=== PATIENT | female | born 1940 | race Caucasian/White ===

== ENCOUNTER 2021-03-03 23:11 | Inpatient (IN) ==
[2021-03-04 00:17] LABS: Hematocrit (blood only) 44.5 % (37-47); Hemoglobin 14.6 g/dL (12.0-16.0); Mean Corpuscular Hgb Conc 32.8 g/dL (32-36); Mean Corpuscular Volume 91.6 fL (80-100); Mean Platelet Volume 10.7 fL (7.4-10.4); Nucleated RBC # (auto) 0.21 K/uL (0-0); Nucleated RBC % (auto) 1.3 %; Platelet Count 219 K/uL (130-400); RDW Coefficient of Variation 18.1 % (11.5-14.5); Red Blood Count 4.86 M/uL (4.2-5.4); White Blood Count 16.73 K/uL (4.8-10.8)
[2021-03-04 00:28] LABS: INR 1.4 (0.9-1.1); Prothrombin Time 14.2 Seconds (9.0-12.0)
[2021-03-04 00:37] LABS: Albumin Level 3.1 gm/dl (3.4-5.0); BUN Creatinine Ratio 22.9 (10-20); Bilirubin Direct 0.5 mg/dl (0-0.2); Calcium 8.5 mg/dl (8.5-10.1); Creatinine Clr Calc Pharmacy 11.9 ml/min; Est GFR (African American) 14.3; Est GFR (Non-African American) 12.3; Magnesium 2.7 mg/dl (1.8-2.4); Potassium 4.4 mmol/L (3.5-5.1)
[2021-03-04 00:46] LABS: Albumin Globulin Ratio 0.8 (0.9-2); Basophils # (auto) 0.01 K/uL (0-0.2); Basophils % (auto) 0.1 %; Bilirubin,Total 1.3 mg/dl (0.2-1); Echinocytes 1+; Eosinophils # (auto) 0.06 K/uL (0-0.5); Eosinophils % (auto) 0.4 %; Immature Granulocytes # (auto) 0.08 K/uL (0.00-0.02); Immature Granulocytes % (auto) 0.5 %; Lymphocytes # (auto) 1.29 K/uL (1.2-3.4); Lymphocytes % (auto) 7.7 %; Monocytes # (auto) 0.89 K/uL (0.11-0.59); Monocytes % (auto) 5.3 %; Phosphorus 5.8 mg/dl (2.5-4.9); Thyroid Stimulating Hormone 9.22 uIu/ml (0.300-4.500); Total Protein 7.1 gm/dl (6.4-8.2); Troponin I 0.017 ng/ml (0-0.045)
[2021-03-04 00:58] LABS: T4 Free Thyroxine 1.77 ng/dl (0.8-1.6)
--- NOTE | 2021-03-04 02:28 | Emergency Department Note ---
Impression & Plan Pneumonia, Acute UTI, Acute on chronic renal insufficiency, Generalized weakness, Atrial fibrillation, Chronic systolic heart failure, Bilateral edema of lower extremity ED Provider Note NAME: DALI BOYLE AGE: 80 SEX: F ARRIVES VIA: Walk-In INFORMANT: Patient, ED PROVIDER(S): Keenan Rodriguez MD CHIEF COMPLAINT: Weakness / edema PLAN: Disposition: Admit MEDICAL DECISION MAKING: The patient is a pleasant 80-year-old woman with a past medical history of CKD, hypertension, hyperlipidemia, atrial fibrillation on amiodarone, CHF who presents to the emergency department coming by her son with concern for worsening generalized weakness and lower extremity swelling that has been ongoing for the past couple weeks setting of recently being admitted to [facility] for UTI and upon discharge was reported to have generalized weakness knee walker and significant assistance to ambulate but this is persisted and so they present to the emergency department tonight. The patient reports a mild cough but nothing significant. She denies any nausea, vomiting, diarrhea. She reports she was recently seen on Wednesday by her kidney doctor and was counseled on using Lasix to help remove fluid but she also was told that her kidney func tion was worse. On arrival the patient is chronically ill-appearing but no acute distress, afebrile with stable vital signs. She has 2+ bilateral lower extremity pitting edema. Calves are nontender and symmetric. She exhibits generalized weakness throughout without focal deficits. EKG with afib and LBBB, no sgarbossa criteria. No recent EKG for comparison. Chest x-ray with question of patchy infiltrates of bilateral lower lung field suspicious for pneumonia in the setting of the patient's leukocytosis. WBC 16.7K, without recent values for comparison. H/H and platelets within normal limits. Chemistry without metabolic acidosis. Creatinine 3.3 which is up from 2.9 on outpatient blood work in the [employer] system. LFTs with mild elevations without prior values for comparison. Total bilirubin 1.3 and direct bilirubin 0.5, however, no abdominal pain. AST, ALT and alk phos are 77, 134 and 300 respectively. CPK within normal limits. Troponin 0.017, within normal limits. BNP 9600 without prior values for comparison and in the setting of the patient's CKD. Lipase is not elevated. TSH elevated at 9.2 with free T4 slightly elevated from normal range at 1.7. COVID-19 PCR negative. Influenza and RSV PCR also negative. CT of the head per preliminary stat read report negative for acute process. Bilateral lower extremity ultrasound pending. UA pending. Given the patient's generalized weakness with acute on chronic renal failure and suspicion for pneumonia reasonable to admit the patient for further management. The patient and her son at the bedside were also in agreement. Will defer diuresis to admitting team. Case was discussed with Dr. Perdomo, [facility] hospitalist, who will evaluate the patient for admission. Triage Nursing notes reviewed and agree them. Additional history obtained from [facility] records. Prior medical records reviewed Vital Signs: reviewed and remarkable for no significant abnormalities Differential diagnosis: Infection, dehydration, metabolic abnormality, hypo/hyperglycemia, electrolyte disturbance, anemia, hypoxia, cardiac sources, intracerebral event, toxicologic, neurologic, as well as other pathologies. ER treatment provided: See below. Diagnostics interpreted by me: ECG: Atrial fibrillation, 103 bpm, no ectopy, LBBB, no sgarbossa criteria. LBBB new from 2015 without more recent for comparison. Cardiac Monitoring: An order for continuous cardiac monitoring was placed and demonstrated Atrial fibrillation, 103 bpm, no ectopy. Laboratory studies: See below Imaging studies: CXR: Patchy bilateral lower lung field infiltrates per my preliminary review. [facility] Preliminary Findings Only See Final Report For Complete Findings CT HEAD: No ICH, mass effect or edema. No evidence of acute cortical stroke. Periventricular small vessel ischemic change. Debris in the right maxillary sinus Radiologist: Marcella Han M.D. Study ready at 01:19 and initial results transmitted at 01:21 --- Preliminary Findings Only See Final Report For Complete Findings US VENOUS BILATERAL LOWER EXTREMITIES: No evidence of deep venous thrombosis. Subcutaneous edema at bilateral calfs and popliteal fossae. Radiologist: Kishore Clay MD Study ready at 04:08 and initial results transmitted at 04:42 Consultation(s): Case was discussed with Dr. Perdomo, [facility] Hospitalist, who will evaluate the patient for admission. HPI: The patient is a pleasant 80-year-old woman with a past medical history of CKD, hypertension, hyperlipidemia, atrial fibrillation on amiodarone, CHF who presents to the emergency department coming by her son with concern for worsening generalized weakness and lower extremity swelling that has been ongoing for the past couple weeks setting of recently being admitted to [facility] for UTI and upon discharge was reported to have generalized weakness knee walker and significant assistance to ambulate but this is persisted and so they present to the emergency department tonight. The patient reports a mild cough but nothing significant. She denies any nausea, vomiting, diarrhea. She reports she was recently seen on Wednesday by her kidney doctor and was counseled on using Lasix to help remove fluid but she also was told that her kidney funct ion was worse. ROS: See above HPI for pertinent positives & negatives. A total of 10 systems reviewed and were otherwise negative. PAST MEDICAL HISTORY:See Below PAST SURGICAL HISTORY:See Below FAMILY HISTORY:See Below SOCIAL HISTORY:See Below HOME MEDICATIONS:See Below ALLERGIES:See Below VITALS:See Below PHYSICAL EXAMINATION: GENERAL: Awake, alert, fatigued-appearing, in no distress HENT: Normocephalic, atraumatic. Oropharynx unremarkable. EYES: Normal conjunctiva. Sclera non-icteric. NECK: Supple. No nuchal rigidity. FROM. No JVD. RESPIRATORY: Diminished at bases and otherwise clear to auscultation. CARDIAC: Tachycardic rate, irregular rhythm. Extremities warm and well perfused. Pulses equal. ABDOMEN: Soft, non-distended. No tenderness to palpation. No rebound or guarding. No masses. RECTAL: Deferred. MUSCULOSKELETAL: Chest examination reveals no tenderness. The back is symmetrical on inspection without obvious abnormality. There is no CVA ten derness to palpation. No joint edema. LOWER EXTREMITIES: Calves are equal size bilaterally and non-tender. 2+ BLE pitting edema. No discoloration. NEURO: Normal sensorium. No sensory or motor deficits noted. SKIN: No rash or jaundice noted. Keenan Rodriguez MD Past Med/Surg History Medical History Atrial fibrillation s/p Watchman 01/2020 s/p cardioversion spring 2019, May 2020 Carotid stenosis, bilateral Chronic systolic heart failure EF 20-30% dx'd January 2020 CKD (chronic kidney disease) Stage 3B as of 05/2020 Colon cancer s/p surgery, XRT, CTX 2009 Hyperlipidemia Hypertension Staghorn calculus Surgical History Femur fracture, left s/p 2019 ORIF History of colectomy 2009 for colon CA R chad Presence of Watchman left atrial append[facility] Family [facility] Sister Cancer Social History Smoking Status: Never smoker Hx Alcohol Use: No Hx Substance Use: No Preferred Language: Lao Communication Ability: Effective Beliefs That Will Affect Care: None Current Living Situation: Family Feels Safe at Home: Yes Assistive Devices: None Allergies Allergies Allergy/AdvReac Type Severity Reaction Status Date / Time strawberry Allergy Unknown hives Unverified 03/04/21 00:06 Home Meds Home Medications Medication Instructions Recorded Confirmed amiodarone 200 mg PO BID 03/03/21 03/04/21 cholecalciferol (vitamin D3) 25 mcg PO DAILY 03/03/21 03/03/21 [Vitamin D3] furosemide 40 mg PO UD 03/03/21 03/04/21 levetiracetam 500 mg PO BID 03/03/21 03/04/21 levothyroxine 75 mcg PO QAM 03/03/21 03/04/21 metoprolol succinate 50 mg PO BID 03/03/21 03/04/21 multivitamin 1 tab PO DAILY 03/03/21 03/04/21 simvastatin 10 mg PO DAILY 03/03/21 03/04/21 aspirin [Aspirin Low Dose] 81 mg PO QAM 03/04/21 03/04/21 Results & Data (ED) Vital Signs Vital Signs - 24 hr 03/03/21 23:18 03/03/21 23:35 03/03/21 23:41 Temperature 36.5 C Temperature Source Temporal Artery Scan Pulse Rate 89 103 H Pulse Rate [Bilateral Radial] 95 H Pulse Rate from SpO2 Sensor 88 Pulse Rhythm Pulse Rhythm [Bilateral Radial] Irregular Pulse Strength [Bilateral Radial] Normal Respiratory Rate 20 20 28 H Respiratory Effort / Characteristics Non-Labored Respiratory Depth Normal Respiratory Pattern Regular Blood Pressure 114/70 126/62 Blood Pressure [Right Arm] 126/62 Blood Pressure Mean 84 83 Blood Pressure Mean [Right Arm] 83 Blood Pressure Position [Right Arm] Sitting Pulse Oximetry 94 93 91 Oxygen Delivery Method Room Air Room Air Sepsis Recent Fever Within 48 Hours No Sepsis New/Unexplained Change in Mental Status N/A Sepsis Action Taken by Nursing No Action Required 03/03/21 23:56 03/03/21 23:57 03/04/21 01:03 Temperature Temperature Source Pulse Rate 102 H 90 102 H Pulse Rate [Bilateral Radial] Pulse Rate from SpO2 Sensor 93 H 100 H Pulse Rhythm Irregular Pulse Rhythm [Bilateral Radial] Pulse Strength [Bilateral Radial] Respiratory Rate 31 H 18 13 Respiratory Effort / Characteristics Respiratory Depth Respiratory Pattern Blood Pressure 117/92 108/80 Blood Pressure [Right Arm] Blood Pressure Mean 100 89 Blood Pressure Mean [Right Arm] Blood Pressure Position [Right Arm] Pulse Oximetry 92 93 95 Oxygen Delivery Method Room Air Room Air Sepsis Recent Fever Within 48 Hours Sepsis New/Unexplained Change in Mental Status Sepsis Action Taken by Nursing 03/04/21 01:30 03/04/21 01:52 03/04/21 02:00 Temperature Temperature Source Pulse Rate 92 H 89 Pulse Rate [Bilateral Radial] 92 H Pulse Rate from SpO2 Sensor 93 H 94 H Pulse Rhythm Pulse Rhythm [Bilateral Radial] Regular Pulse Strength [Bilateral Radial] Normal Respiratory Rate 27 H 20 24 Respiratory Effort / Characteristics Non-Labored Respiratory Depth Normal Respiratory Pattern Blood Pressure Blood Pressure [Right Arm] 108/80 Blood Pressure Mean Blood Pressure Mean [Right Arm] 89 Blood Pressure Position [Right Arm] Sitting Pulse Oximetry 94 93 92 Oxygen Delivery Method Room Air Room Air Room Air Sepsis Recent Fever Within 48 Hours Sepsis New/Unexplained Change in Mental Status Sepsis Action Taken by Nursing 03/04/21 02:30 03/04/21 03:00 03/04/21 04:06 Temperature Temperature Source Pulse Rate 96 H 94 H 91 H Pulse Rate [Bilateral Radial] Pulse Rate from SpO2 Sensor 96 H 93 H 86 Pulse Rhythm Pulse Rhythm [Bilateral Radial] Pulse Strength [Bilateral Radial] Respiratory Rate 26 H 26 H 26 H Respiratory Effort / Characteristics Respiratory Depth Respiratory Pattern Blood Pressure 112/68 Blood Pressure [Right Arm] Blood Pressure Mean 82 Blood Pressure Mean [Right Arm] Blood Pressure Position [Right Arm] Pulse Oximetry 94 92 92 Oxygen Delivery Method Room Air Room Air Room Air Sepsis Recent Fever Within 48 Hours Sepsis New/Unexplained Change in Mental Status Sepsis Action Taken by Nursing Laboratory Data Attestation: I reviewed the patient's lab results. Result diagrams: 03/04/21 00:00 03/04/21 00:00 Lab Results 03/04/21 03/04/2121 Range/Units 00:00 00:00 00:00 WBC 16.73 H (4.8-10.8) K/uL RBC 4.86 (4.2-5.4) M/uL Hgb 14.6 (12.0-16.0) g/dL Hct 44.5 (37-47) % MCV 91.6 (80-100) fL MCH 30.0 (25-34) pg MCHC 32.8 (32-36) g/dL RDW Std Deviation 58.0 H (36.4-46.3) fL RDW Coeff of Lawrence 18.1 H (11.5-14.5) % Plt Count 219 (130-400) K/uL MPV 10.7 H (7.4-10.4) fL Immature Gran % (Auto) 0.5 % Neut % (Auto) 86.0 % Lymph % (Auto) 7.7 % Pitkin % (Auto) 5.3 % Eos % (Auto) 0.4 % Baso % (Auto) 0.1 % Neut # (Auto) 14.40 H (1.4-6.5) K/uL Lymph # (Auto) 1.29 (1.2-3.4) K/uL Pitkin # (Auto) 0.89 H (0.11-0.59) K/uL Eos # (Auto) 0.06 (0-0.5) K/uL Baso # (Auto) 0.01 (0-0.2) K/uL Immature Gran # (Auto) 0.08 H (0.00-0.02) K/uL Absolute Nucleated RBC 0.21 H (0-0) K/uL Nucleated RBC % (auto) 1.3 % Echinocytes 1+ PT 14.2 H (9.0-12.0) Seconds INR 1.4 H (0.9-1.1) Sodium 137 (136-145) mmol/L Potassium 4.4 (3.5-5.1) mmol/L Chloride 103 (98-107) mmol/L Carbon Dioxide 23 (21-32) mmol/L Anion Gap 11.0 (3-11) BUN 76 H (7-18) mg/dl Creatinine 3.31 H (0.6-1.2) mg/dl Est Cr Clr Drug Dosing 11.9 ml/min Est GFR ( Amer) 14.3 Est GFR (Non-Af Amer) 12.3 BUN/Creatinine Ratio 22.9 H (10-20) Glucose 124 H (70-99) mg/dl Lactate (0.4-2.0) mmol/L Calcium 8.5 (8.5-10.1) mg/dl Phosphorus 5.8 H (2.5-4.9) mg/dl Magnesium 2.7 H (1.8-2.4) mg/dl Total Bilirubin 1.3 H (0.2-1) mg/dl Direct Bilirubin 0.5 H (0-0.2) mg/dl AST 77 H (15-37) U/L ALT 134 H (12-78) U/L Alkaline Phosphatase 300 H (45-117) U/L Total Creatine Kinase 55 (26-192) U/L Troponin I 0.017 (0-0.045) ng/ml NT-Pro-B Natriuret Pep 9623 H (0-1800) pg/ml Total Protein 7.1 (6.4-8.2) gm/dl Albumin 3.1 L (3.4-5.0) gm/dl Globulin 4.0 (2.5-4.0) gm/dl Albumin/Globulin Ratio 0.8 L (0.9-2) Lipase 284 (73-393) U/L Procalcitonin (0-0.5) ng/ml TSH 9.220 H (0.300-4.500) uIu/ml Free T4 1.77 H (0.8-1.6) ng/dl COVID-19 Eval Order SARS-CoV-2 (PCR) (Negative) Influenza Type A (PCR) (Neg) Influenza Type B (PCR) (Neg) RSV (RT-PCR) (Neg) 03/04/21 03/04/21 03/04/21 Range/Units 00:00 02:02 02:02 WBC (4.8-10.8) K/uL RBC (4.2-5.4) M/uL Hgb (12.0-16.0) g/dL Hct (37-47) % MCV (80-100) fL MCH (25-34) pg MCHC (32-36) g/dL RDW Std Deviation (36.4-46.3) fL RDW Coeff of Lawrence (11.5-14.5) % Plt Count (130-400) K/uL MPV (7.4-10.4) fL Immature Gran % (Auto) % Neut % (Auto) % Lymph % (Auto) % Pitkin % (Auto) % Eos % (Auto) % Baso % (Auto) % Neut # (Auto) (1.4-6.5) K/uL Lymph # (Auto) (1.2-3.4) K/uL Pitkin # (Auto) (0.11-0.59) K/uL Eos # (Auto) (0-0.5) K/uL Baso # (Auto) (0-0.2) K/uL Immature Gran # (Auto) (0.00-0.02) K/uL Absolute Nucleated RBC (0-0) K/uL Nucleated RBC % (auto) % Echinocytes PT (9.0-12.0) Seconds INR (0.9-1.1) Sodium (136-145) mmol/L Potassium (3.5-5.1) mmol/L Chloride (98-107) mmol/L Carbon Dioxide (21-32) mmol/L Anion Gap (3-11) BUN (7-18) mg/dl Creatinine (0.6-1.2) mg/dl Est Cr Clr Drug Dosing ml/min Est GFR ( Amer) Est GFR (Non-Af Amer) BUN/Creatinine Ratio (10-20) Glucose (70-99) mg/dl Lactate (0.4-2.0) mmol/L Calcium (8.5-10.1) mg/dl Phosphorus (2.5-4.9) mg/dl Magnesium (1.8-2.4) mg/dl Total Bilirubin (0.2-1) mg/dl Direct Bilirubin (0-0.2) mg/dl AST (15-37) U/L ALT (12-78) U/L Alkaline Phosphatase (45-117) U/L Total Creatine Kinase (26-192) U/L Troponin I (0-0.045) ng/ml NT-Pro-B Natriuret Pep (0-1800) pg/ml Total Protein (6.4-8.2) gm/dl Albumin (3.4-5.0) gm/dl Globulin (2.5-4.0) gm/dl Albumin/Globulin Ratio (0.9-2) Lipase (73-393) U/L Procalcitonin 0.32 (0-0.5) ng/ml TSH (0.300-4.500) uIu/ml Free T4 (0.8-1.6) ng/dl COVID-19 Eval Order CovFluRsv at [facility] SARS-CoV-2 (PCR) NEGATIVE (Negative) Influenza Type A (PCR) Negative (Neg) Influenza Type B (PCR) Negative (Neg) RSV (RT-PCR) Negative (Neg) 03/04/21 Range/Units 04:13 WBC (4.8-10.8) K/uL RBC (4.2-5.4) M/uL Hgb (12.0-16.0) g/dL Hct (37-47) % MCV (80-100) fL MCH (25-34) pg MCHC (32-36) g/dL RDW Std Deviation (36.4-46.3) fL RDW Coeff of Lawrence (11.5-14.5) % Plt Count (130-400) K/uL MPV (7.4-10.4) fL Immature Gran % (Auto) % Neut % (Auto) % Lymph % (Auto) % Pitkin % (Auto) % Eos % (Auto) % Baso % (Auto) % Neut # (Auto) (1.4-6.5) K/uL Lymph # (Auto) (1.2-3.4) K/uL Pitkin # (Auto) (0.11-0.59) K/uL Eos # (Auto) (0-0.5) K/uL Baso # (Auto) (0-0.2) K/uL Immature Gran # (Auto) (0.00-0.02) K/uL Absolute Nucleated RBC (0-0) K/uL Nucleated RBC % (auto) % Echinocytes PT (9.0-12.0) Seconds INR (0.9-1.1) Sodium (136-145) mmol/L Potassium (3.5-5.1) mmol/L Chloride (98-107) mmol/L Carbon Dioxide (21-32) mmol/L Anion Gap (3-11) BUN (7-18) mg/dl Creatinine (0.6-1.2) mg/dl Est Cr Clr Drug Dosing ml/min Est GFR ( Amer) Est GFR (Non-Af Amer) BUN/Creatinine Ratio (10-20) Glucose (70-99) mg/dl Lactate 1.8 (0.4-2.0) mmol/L Calcium (8.5-10.1) mg/dl Phosphorus (2.5-4.9) mg/dl Magnesium (1.8-2.4) mg/dl Total Bilirubin (0.2-1) mg/dl Direct Bilirubin (0-0.2) mg/dl AST (15-37) U/L ALT (12-78) U/L Alkaline Phosphatase (45-117) U/L Total Creatine Kinase (26-192) U/L Troponin I (0-0.045) ng/ml NT-Pro-B Natriuret Pep (0-1800) pg/ml Total Protein (6.4-8.2) gm/dl Albumin (3.4-5.0) gm/dl Globulin (2.5-4.0) gm/dl Albumin/Globulin Ratio (0.9-2) Lipase (73-393) U/L Procalcitonin (0-0.5) ng/ml TSH (0.300-4.500) uIu/ml Free T4 (0.8-1.6) ng/dl COVID-19 Eval Order SARS-CoV-2 (PCR) (Negative) Influenza Type A (PCR) (Neg) Influenza Type B (PCR) (Neg) RSV (RT-PCR) (Neg) Administered Medications Amiodarone HCl (Amiodarone 200 Mg Tab) 200 mg PO BID [facility] Stop: 04/03/21 08:59 Last Admin: 03/04/21 09:45 Dose: 200 mg Documented by: [id number] Aspirin (Aspirin 81 Mg Ectab) 81 mg PO QAM NICHOLAS Stop: 04/03/21 08:59 Last Admin: 03/04/21 09:44 Dose: 81 mg Documented by: [id number] Heparin Sodium (Porcine) (Heparin Sod 5,000 Unit/0.5 Ml Vial) 5,000 units SQ Q8 NICHOLAS Stop: 04/03/21 06:59 Last Admin: 03/04/21 15:08 Dose: 5,000 units Documented by: [id number] Admin: 03/04/21 09:43 Dose: 5,000 units Documented by: [id number] Furosemide 20 mg/ Syringe 2 mls @ 4 mls/min IV [id number] NICHOLAS Stop: 04/03/21 10:59 Last Admin: 03/04/21 11:46 Dose: 4 mls/min Documented by: [id number] Levetiracetam (Levetiracetam 500 Mg Tab) 500 mg PO BID NICHOLAS Stop: 04/03/21 08:59 Last Admin: 03/04/21 09:44 Dose: 500 mg Documented by: [id number] Levothyroxine Sodium (Levothyroxine Sodium 75 Mcg Tablet) 75 mcg PO DAILYBB NICHOLAS Stop: 04/03/21 06:44 Last Admin: 03/04/21 07:44 Dose: 75 mcg Documented by: [id number] Metoprolol Succinate (Metoprolol Succ 50mg Ext Rel Tab) 50 mg PO BID NICHOLAS Stop: 04/03/21 08:59 Last Admin: 03/04/21 09:44 Dose: 50 mg Documented by: [id number] Multivitamins (Multivitamin Tab) 1 tab PO DAILY NICHOLAS Stop: 04/03/21 08:59 Last Admin: 03/04/21 09:44 Dose: 1 tab Documented by: [id number] Simvastatin (Simvastatin 10 Mg Tab) 10 mg PO DAILY NICHOLAS Stop: 04/03/21 08:59 Last Admin: 03/04/21 09:44 Dose: 10 mg Documented by: [id number] Vitamin D (Cholecalciferol 1,000 Units 25 Mcg Tab) 1,000 units PO DAILY NICHOLAS Stop: 04/03/21 08:59 Last Admin: 03/04/21 09:44 Dose: 1,000 units Documented by: [id number] Discontinued Medications Ceftriaxone Sodium (Rocephin) 2,000 mg in 70 mls @ 140 mls/hr IV NOW STA Stop: 03/04/21 02:58 Last Infusion: 03/04/21 05:48 Dose: 0 mls/hr Documented by: [id number] Admin: 03/04/21 05:01 Dose: 140 mls/hr Documented by: [id number] Furosemide 40 mg/ Syringe 4 mls @ 4 mls/min IV ONE ONE Stop: 03/04/21 10:36 Last Admin: 03/04/21 12:05 Dose: Not Given Documented by: [id number] Perflutren Lipid Microsphere (Perflutren Lipid Microsphere (Definity)) 2 ml IV ONCE ONE Stop: 03/04/21 07:43 Last Admin: 03/04/21 07:43 Dose: 2 ml Documented by: [id number] Imaging Data Radiologist's Impression: Chest X-Ray 03/03/21 23:47 XR chest 1V portable CLINICAL HISTORY: Atypical chest pain COMPARISON STUDY: 06/14/2015 FINDINGS: The heart is enlarged. There is mild pulmonary vascular congestion/fluid overload. There is a suspected small right pleural effusion. There are basilar opacities, likely atelectatic.[ IMPRESSION: Cardiomegaly and radiographic evidence of mild distal failure/fluid overload. Small right pleural effusion. Basilar opacities, statistically atelectatic. ACT 112: Negative or not required by law. Electronically signed by: Wyatt Batista M.D. 03/04/2021 7:[address] 03/03/21 23:47 CT head/brain wo con CLINICAL HISTORY: weakness COMPARISON STUDY: No previous studies for comparison. TECHNIQUE: Axial CT of the brain is performed from the vertex to the skull base. IV contrast was not administered for this examination. A dose lowering technique was utilized adhering to the principles of ALARA. CT DOSE: 614.27 mGy.cm FINDINGS: No intra or extra-axial mass lesions are visualized. There is no CT evidence of acute cortical infarction. There is no evidence of midline shift. There is no acute hemorrhage. No calvarial fractures are visualized. There are patchy white matter hypodensities likely on a small vessel basis. 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 There is no evidence of pathologic ventricular dilatation. There is a right maxillary sinus air-fluid level. IMPRESSION: 1. No acute intracranial findings 2. Inflammatory changes within the right maxillary sinus. ACT 112: Negative or not required by law. Electronically signed by: Wyatt Batista M.D. 03/04/2021 7:15 AM Venous Doppler Study 03/03/21 23:49 ULTRASOUND BILATERAL LOWER EXTREMITY VENOUS CLINICAL HISTORY: Bilateral lower extremity edema. COMPARISON STUDY: No priors. TECHNIQUE: Real-time, grayscale, and color Doppler sonography of the deep veins of the right and left lower extremity was performed from the inguinal crease to the calf. Compression and augmentation were utilized. FINDINGS: There is no sonographic evidence of deep venous thrombosis identified in the right or left lower extremity. The common femoral, superficial femoral, and popliteal veins are patent and normally compressible bilaterally. The gre ater saphenous vein and the profunda femoris vein at the junction with the common femoral vein are clear in both legs. The visualized calf veins are patent bilaterally. Soft tissue edema is noted in the calves. IMPRESSION: There is no sonographic evidence of deep venous thrombosis identified in the right or left lower extremity. ACT 112: Negative or not required by law. Electronically signed by: Minh Leo M.D. 03/04/2021 7:26 AM Discharge Plan Visit Data Chief Complaint: Weakness Stated Complaint: WEAKNESS, AFIB ED Provider: Keenan Rodriguez Discharge Problem: Pneumonia, Acute UTI, Acute on chronic renal insufficiency, Generalized weakness, Atrial fibrillation, Chronic systolic heart failure, Bilateral edema of lower extremity Patient Disposition: Admitted As Inpatient Discharge Instructions Interventions: ED Discharge Assessment Last Done: 03/04/21 06:26 Discharge Problem: Pneumonia Qualifiers: Pneumonia type: due to unspecified organism Laterality: bilateral Lung loca tion: lower lobe of lung Qualified Code(s): J18.9 - Pneumonia, unspecified organism
[2021-03-04] MEDS ORDERED: cefTRIAXone SODIUM 2,000 MG/70 ML BAG IV STA (02:29)
[2021-03-04 02:55] LABS: Influenza A virus by PCR Negative (Neg); Influenza B virus by PCR Negative (Neg); RSV by PCR Negative (Neg); SARS CoV2 RNA(COVID-19) InHosp NEGATIVE (Negative)
[2021-03-04 05:17] LABS: Appearance Urine Cloudy (Clear); Bacteria Urine Automated Negative (Negative); Bilirubin Urine Negative (Negative); Blood Urine 2+ (Negative); Color Urine Dark Yellow; Epithelial Cell Urine Auto >30 /lpf (0-5); Glucose Urine UA Negative (Negative); Ketones Urine Negative (Negative); Leukocyte Esterase Urine 2+ (Negative); Nitrite Urine Negative (Negative); Protein Urine 1+ (Negative); RBC Urine Automated 0-4 /hpf (0-4); Specific Gravity Urine 1.019 (1.000-1.030); Urobilinogen Urine Negative (Negative); WBC Urine Automated >30 /hpf (0-5)
[2021-03-04 05:33] LABS: Cast Urine Automated >30 /lpf (0-5)
[2021-03-04] MEDS ORDERED: NITROGLYCERIN SL 0.4 MG/TAB TAB SL PRN (06:29)
[2021-03-04] MEDS ORDERED: POLYETHYLENE (MIRALAX) 17 GM PACK PO PRN (06:29)
[2021-03-04] MEDS ORDERED: ONDANSETRON INJ 2 MG/ML 2 ML VIAL IV PRN (06:29)
[2021-03-04] MEDS ORDERED: ACETAMINOPHEN 325 MG TAB PO PRN (06:29)
--- NOTE | 2021-03-04 07:16 | CT Scan Report ---
CT head/brain wo con CLINICAL HISTORY: weakness COMPARISON STUDY: No previous studies for comparison. TECHNIQUE: Axial CT of the brain is performed from the vertex to the skull base. IV contrast was not administered for this examination. A dose lowering technique was utilized adhering to the principles of ALARA. CT DOSE: 614.27 mGy.cm FINDINGS: No intra or extra-axial mass lesions are visualized. There is no CT evidence of acute cortical infarc tion. There is no evidence of midline shift. There is no acute hemorrhage. No calvarial fractures ar e visualized. There are patchy white matter hypodensities likely on a small vessel basis. There are old lacunar inf arcts in left basal ganglia. There is no evidence of pathologic ventricular dilatation. There is a right maxillary sinus air-fluid level. IMPRESSION: 1. No acute intracranial findings 2. Inflammatory changes within the right maxillary sinus. ACT 112: Negative or not required by law. Electronically signed by: Wyatt Batista M.D. 03/04/2021 7:15 AM
--- NOTE | 2021-03-04 07:25 | XRay Report ---
XR chest 1V portable CLINICAL HISTORY: Atypical chest pain COMPARISON STUDY: 06/14/2015 FINDINGS: The heart is enlarged. There is mild pulmonary vascular congestion/fluid overload. There is a suspected small right pleural effusion. There are basilar opacities, likely atelectatic.[ IMPRESSION: Cardiomegaly and radiographic evidence of mild distal failure/fluid overload. Small right pleural effusion. Basilar opacities, statistically atelectatic. ACT 112: Negative or not required by law. Electronically signed by: Wyatt Batista M.D. 03/04/2021 7:24 AM
--- NOTE | 2021-03-04 07:27 | History and Physical Report ---
DATE OF ADMISSION: 03/04/2021 CHIEF COMPLAINT: Weakness. HISTORY OF PRESENT ILLNESS: This is an 80-year-old female with past medical history significant for hyperlipidemia, hypothyroidism, chronic kidney disease stage III, atrial fibrillation, history of heart failure with preserved ejection fraction, ectopic atrial tachycardia, hypertension, vitamin D deficiency, cholelithiasis, senile osteoporosis, history of seizures, history of colon cancer. The patient lives with her and son. The patient was recently in the [facility] for 5 days and was treated for UTI and got discharged about a week ago. After discharge, she also followed up with nephrology. Her baseline creatinine was 1.3-1.4, creatinine peaked in [facility] to 3.12 as per nephrology notes and also slightly improved to 2.9 and she was also volume overloaded when seen by nephrology and thought to be secondary t sodium bicarbonate tablets and lack of diuretics and sodium bicarbonate was discontinued and started on Lasix. The patient says she is making urine fine, but since last one week legs are swollen. She was given fluids in the [facility] and because of swollen legs she is not able to ambulate much and feeling weak and tired. She has cane and walker at home. She was also found to have kidney stones. Denies any abdominal pain, no diarrhea, no constipation, no blood in the stools or black stools. Normal bladder movements. No burning micturition. No fever, no chills, no chest pain, no shortness of breath. Once in a while, she gets cough. No nausea. Appetite is okay. No headache, no blurred visions, no earache, no runny nose, no sore throat, no loss of sense of smell or taste. Currently, resting comfortable and hemodynamically stable. ALLERGIES: STRAWBERRY. PAST MEDICAL HISTORY: As mentioned above. PAST SURGICAL HISTORY: Watchman inserted in [place], colonoscopy, cystoscopy, left femur fracture repair, heart electroconversion, partial removal of colon in 2012. MEDICATIONS: Currently the patient is on amiodarone 200 mg p.o. b.i.d., aspirin 81 mg p.o. daily, vitamin D 25 mcg p.o. daily, Lasix 40 mg as directed, Keppra 500 mg p.o. b.i.d., levothyroxine 75 mcg p.o. a.m., metoprolol succinate 50 mg p.o. b.i.d., multivitamin 1 tablet daily, simvastatin 10 mg p.o. daily. FAMILY HISTORY: Significant for sister has leukemia, colon cancer, CABG; father has hypertension, emphysema; mother has stroke, hypertension; brother has hypertension. SOCIAL HISTORY: Lives with her son and . No smoking, no alcohol, no drug use. REVIEW OF SYSTEMS: As per HPI. Rest of the review of systems negative. PHYSICAL EXAMINATION: GENERAL: The patient is of moderate build, not in acute distress. VITAL SIGNS: Temperature 36.5, pulse 88, respiratory rate 18, blood pressure 106/84, oxygen 98% on room air. HEENT: Pupils equal, round, and reactive to light. Oral mucosa moist. NECK: No JVD, no neck masses. CARDIOVASCULAR: S1, S2 heard. Regular rate and rhythm, no murmur, no gallop. RESPIRATORY SYSTEM: Normal AP diameter. No accessory muscle use. No wheezing, no crackles. ABDOMEN: Soft, bowel sounds present, nontender. No distention. CENTRAL NERVOUS SYSTEM: Cranial nerves II-XII grossly intact, nonfocal. EXTREMITIES: Bilateral lower extremity gross edema present, no erythema seen. LABORATORY DATA: WBC 16, hemoglobin 14.6, hematocrit 44.5, platelets 219. PT 14.2, INR 1.4. Sodium 137, potassium 4.4, chloride 103, bicarbonate 23, BUN 76, creatinine 3.3, serum glucose 124, lactate 1.8, calcium 8.5, phosphorus 5.8, magnesium 2.7, total bilirubin 1.3, direct bilirubin 0.5, AST 77, ALT 134, alkaline phosphatase 300. Troponin I of 0.017, total creatinine kinase 55. BNP 9600. TSH 9.2, free T4 1.7. Lipase 284. Procalcitonin 0.3. Urinalysis pending. SARS-CoV-2 PCR negative. Influenza A and B PCR negative. RSV PCR negative. IMAGING DATA: Chest x-ray, no obvious acute findings. CT of the head, no acute findings. Venous Doppler study of the lower extremities on the preliminary report, no DVT. ASSESSMENT AND PLAN: This is an 80-year-old female who presents with ongoing weakness and lower extremity edema and she was recently admitted to [facility] for UTI, treated for UTI for 5 days and discharged about a week ago. 1. Weakness, lower extremity edema. The patient seems to have history of diastolic congestive heart failure. Seen by nephrology recently and started on Lasix, but not getting better. Kidney function is worsening. No DVT in lower extremity Doppler. We will admit to [email or web address]. We will get an echocardiogram and await nephrology input. 2. Acute kidney injury on chronic kidney disease stage III, baseline creatinine was 1.3-1.4, recently it was 2.9, presently with a creatinine of 3.3. Not able to give fluids because of volume overload. Hold the Lasix. Diuretics as per nephrology. Await nephrology input. 3. Chronic diastolic congestive heart failure: We will follow the echocardiogram. Continue Toprol-XL. 4. Elevated LFTs: Most likely from hepatic congestion.Will get ct abd/pelvis. Will monitor. 5. kidney stones. We will follow the CT of the abdomen and pelvis. 6. Hypothyroidism: TSH is high and free T4 also on the higher side. Will continue on Synthroid. Will follow the repeat labs. 7. History of atrial fibrillation: On amiodarone and Toprol xl., status post Watchman procedure about a year ago. 8. Leukocytosis, recently treated for urinary tract infection. Urinalysis pending. ER empirically started on Rocephin, which will continue. Follow the urine culture and blood cultures. 9. Hyperlipidemia, continue statin. 10. Hypertension: Continue metoprolol succinate. Holding diuretics. 11. History of seizures: Continue Keppra. 12. History of colon cancer: Status post partial removal of colon in 2013. 13. Deep venous thrombosis prophylaxis: Heparin subQ. DISPOSITION: Closely monitor in the [employer] [facility]. Level 1 full code as per my discussion with son. PT and OT prior to discharge. Social service to help with discharge planning. JOHN
--- NOTE | 2021-03-04 07:28 | Ultrasound Report ---
ULTRASOUND BILATERAL LOWER EXTREMITY VENOUS CLINICAL HISTORY: Bilateral lower extremity edema. COMPARISON STUDY: No priors. TECHNIQUE: Real-time, grayscale, and color Doppler sonography of the deep veins of the right and left lower extremity was performed from the inguinal crease to the calf. Compression and augmentation wer e utilized. FINDINGS: There is no sonographic evidence of deep venous thrombosis identified in the right or left lower extremity. The common femoral, superficial femoral, and popliteal veins are patent and normally compressible bilaterally. The greater saphenous vein and the profunda femoris vein at the junction w ith the common femoral vein are clear in both legs. The visualized calf veins are patent bilaterally. Soft tissue edema is noted in the calves. IMPRESSION: There is no sonographic evidence of deep venous thrombosis identified in the right or lef t lower extremity. ACT 112: Negative or not required by law. Electronically signed by: Minh Leo M.D. 03/04/2021 7:26 AM
[2021-03-04] MEDS ORDERED: PERFLUTREN LIPID MICROSPHERE (DEFINITY) IV ONE (07:42)
[2021-03-04] MEDS: LEVOTHYROXINE SODIUM 75 MCG TABLET PO SCH (07:44)
--- NOTE | 2021-03-04 08:18 | Urology Consultation ---
Date of Consultation March 04, 2021 Assessment & Plan (1) Staghorn calculus: 80 yo F admitted for weakness, LE edema, acute on chronic renal insufficiency, possible pneumonia; staghorn calculus. - Hospital course, imaging, labs and past medical/surgical and social hx reviewed - Case and imaging reviewed with Dr. Rasheed, urologist oriental medicine practitioner - CT A/P demonstrates left UPJ stone in addition to staghorn calculus - She is afebrile, nontoxic and no pain at present - Urine and blood cultures are pending - continue IV antibiotics per primary team and follow cultures - Lab work reviewed - creatinine is not far from her recent baseline, WBC 16.73K - continue to trend - Pt with multiple comorbidities and acute issues - No acute intervention planned today - Recommend left ureteral stent during admission when medically stable/optimized - discussed with hospitalist physician Please consult our service urgently if patient develops fever >101F, intractable pain or nausea, as this will necessitate urgent surgical intervention. Thank you for the consultation and we will continue to monitor closely with primary service. History of Present Illness Reason for Consultation: Left ureteral stone Requesting Physician: Dr. Perdomo Attending Physician: Rosemary Argueta MD History of Present Illness 80 yo F admitted for weakness, LE edema, acute on chronic renal insufficiency, possible pneumonia; staghorn calculus. PMHx Atrial fibrillation, chronic heart failure, nephrolithiasis, chronic kidney disease, hyperlipidemia, hypertension, colon cancer. Patient was recently hospitalized at [facility] from 02/19-02/24/21 for LILIBETH on CKD, staghorn calculus, AF w/ RVR per hospital notes. Creatinine was 3.1 upon discharge. Her urine and blood cultures from 02/19/21 were negative. She presented to [facility] ED on 03/04/21 with weakness and LE edema. Afebrile on arrival. Lab work: creatinine 3.31, WBC 16.73, Hgb 14.6, lactate 1.8. UA showed 2+ leukocytes, >30 WBC, 0-4 RBCs, >30 epithelials. Urine and blood cultures collected. She was started on IV Ceftriaxone. She was admitted by hospital service for management. Our service is consulted for left ureteral stone. Chart review: Afebrile No new labs at time of exam Urine and BCx pending On IV Ceftriaxone CXR - Cardiomegaly and radiographic evidence of mild distal failure/fluid overload. Small right pleural effusion. Basilar opacities. Venous doppler US - No evidence of deep venous thrombosis. CT A/P IMPRESSION: 1. Postsurgical changes of a right hemicolectomy 2. Colonic diverticulosis. No evidence of acute diverticulitis 3. 3 cm staghorn left renal calculus. 4. Obstructing 18 x 7 x 7 mm left UPJ calculus 5. Cholelithiasis 6. Low volume ascites Pt seen and examined at bedside. She is awake, alert and resting comfortably in bed. She denies flank, abdominal or suprapubic pain. No dysuria or hematuria. She is tolerating PO diet, no nausea or vomiting. No fever or chills. Denies CP or SOB. History of stones in the past. Reports spontaneous passage of stones. No prior surgical intervention for stones. No additional concerns today. Allergies Allergy/AdvReac Type Severity Reaction Status Date / Time strawberry Allergy Unknown hives Unverified 03/04/21 00:06 Home Medications Medication Instructions Recorded Confirmed Type amiodarone 200 mg PO BID 03/03/21 03/04/21 History cholecalciferol (vitamin D3) 25 mcg PO DAILY 03/03/21 03/03/21 History [Vitamin D3] furosemide 40 mg PO UD 03/03/21 03/04/21 History levetiracetam 500 mg PO BID 03/03/21 03/04/21 History levothyroxine 75 mcg PO QAM 03/03/21 03/04/21 History metoprolol succinate 50 mg PO BID 03/03/21 03/04/21 History multivitamin 1 tab PO DAILY 03/03/21 03/04/21 History simvastatin 10 mg PO DAILY 03/03/21 03/04/21 History aspirin [Aspirin Low Dose] 81 mg PO QAM 03/04/21 03/04/21 History Patient History Medical History Atrial fibrillation s/p Watchman 01/2020 s/p cardioversion springMay 2020 Carotid stenosis, bilateral Chronic systolic heart failure EF 20-30% dx'd January 2020 CKD (chronic kidney disease) Stage 3B as of 05/2020 Colon cancer s/p surgery, XRT, CTX 2009 Hyperlipidemia Hypertension Staghorn calculus Surgical History Femur fracture, left s/p 2019 ORIF History of colectomy 2010 for colon CA R chad Presence of Watchman [facility] Family [facility] Sister Cancer Social History Smoking Status: Never smoker Hx Alcohol Use: No Hx Substance Use: No Preferred Language: Luxembourger Communication Ability: Effective Beliefs That Will Affect Care: None Current Living Situation: Family Feels Safe at Home: Yes Assistive Devices: None Review of Systems Constitutional: as per Subjective / HPI Eyes: no problem reported Ear, Nose, Mouth, Throat: no problem reported Respiratory: no dyspnea Cardiovascular: no chest pain Gastrointestinal: as per Subjective / HPI Genitourinary: as per Subjective / HPI Musculoskeletal: no problem reported Integumentary: no problem reported Neurologic: as per Subjective / HPI Psychiatric: no problem reported Physical Exam Constitutional: well developed and well nourished; no acute distress and not ill appearing Eyes: no scleral abnormality Neck: normal visual inspection Respiratory: normal respiratory effort and able to speak in complete sentences; no respiratory distress and no labored breathing Cardiovascular: bilateral lower extremity pitting edema Gastrointestinal (Abdomen): Inspection/Auscultation: abdomen normal to inspection; abdomen not distended Percussion/Palpation: abdomen soft; abdomen nontender and no guarding Musculoskeletal: Head/Neck/Chest: normocephalic and head atraumatic Skin: no rashes, warm and dry Neurologic: moves all extremities and awake Psychiatric: Orientation: alert and oriented x 3 Genitourinary: no CVA tenderness Results & Data ([facility]) Vital Signs (Past 12 Hours) Vital Signs Temp Pulse Pulse Resp BP BP Pulse Ox 03/04/21 07:00 36.8 C 88 18 124/60 96 03/04/21 06:32 89 16 118/72 93 03/04/21 06:05 88 20 120/92 95 03/04/21 04:44 88 18 106/84 98 03/04/21 04:06 91 H 26 H 112/68 92 03/04/21 03:00 94 H 26 H 92 03/04/21 02:30 96 H 26 H 94 03/04/21 02:00 89 24 92 03/04/21 01:52 92 H 20 108/80 93 03/04/21 01:30 92 H 27 H 94 03/04/21 01:03 102 H 13 108/80 95 03/03/21 23:57 90 18 93 03/03/21 23:56 102 H 31 H 117/92 92 03/03/21 23:41 103 H 28 H 126/62 91 03/03/21 23:35 95 H 20 126/62 93 03/03/21 23:18 36.5 C 89 20 114/70 94 PG Care Time/CCT Total # of Minutes Spent Total Time Spent with Patient: Total time spent is greater than 50% in coordination of care (as documented) at patient's floor/unit and/or counseling patient: Coding Level of Care Code 56980 Initial Inpt Care Lvl 3 Diagnoses Staghorn calculus N20.0
--- NOTE | 2021-03-04 08:32 | Nephrology Consultation ---
Date of Consultation March 04, 2021 Assessment & Plan (1) Acute on chronic renal insufficiency: prior baseline creatinine in early to mid 2019 had been 1.4, CKD 3B, eGFR mid 30s with about 300 mg proteinuria. most recent labs before this admission are 4/7 w/ 2.6 creatinine on presentation to OSH, 3.1 at d/c; up to 3.3 by presentation here. cardiorenal syndrome is likeliest culprit here; obstructive uropathy is also a working diagnosis, though this is not likely to cause the fluid overload she is having. chemistries acceptable for now, hyperphosphatemia noted. -cardiology eval pending -await urology dispo -lasix as below -ordered 1.5L FR and <2 gm daily Na diet; no renal diet needed yet -no urgent need for dialysis but cannot rule out need this admission; I did discuss this with her briefly ->>defer to primary service to dose meds appropriately for liver and renal failure; liver issues likely congestive >will check prot/creat ratio given edema, hypoalbuminemia but stone dz may complicate interpretation - >>with her volume overload, strict I/O and daily standing wts important Care coordinated w/ Dr Argueta Present on Admission?: Yes (2) Acute on chronic systolic heart failure: New dx spring 2019. fluid overload w/ ascites, edema, pl effusion; minimal dyspnea -lasix 20 mg IV bid -daily standing wts, low Na diet, FR -cardiology consult Present on Admission?: Yes (3) Kidney stone: obstructing L stone plus L staghorn calculus obstruction will need to be addressed once optimized Present on Admission?: Yes History of Present Illness Reason for Consultation: acute renal failure Requesting Physician: Dr Perdomo Attending Physician: Rosemary Argueta MD History of Present Illness 80 y/o F whom I'm asked to see for LILIBETH was admitted for same this morning. PMH includes CKD3B, chronic systolic HF dx'd last year about this time EF 25%, A fib s/p watchman and cardioversions x 2, HL, nephrolithiasis, hypothyroid, remote colon CA, L femur fracture. Lives at home w/ her ; was making Easter dinner when she had sudden onset BL leg pain and edema, followed by BL leg weakness. [facility] to [facility] b/c her rock picker is there >> admission 4/7-02/24 to [facility] for LILIBETH on CKD, staghorn calculus, AF w/ RVR >d/c summary rev iewed in epic. admission creatinine there was 2.6; d/c w/ creat 3.1. 02/19/21 urine and blood cxs all negative. Not d/c on any abtx; cannot tell if she had abtx during admission; was d/c on sodium bicarb, new for her. States she saw cardiology there but does not believe she saw nephro or urology. Seen in [facility] CKD clinic with worsening volume OL on 02/28: lasix intensified w/ instructions to come to ER if worsening status. Prior baseline creatinine 1.4 last May. Endorses poor po and occasional N; but no sob no further leg pain, no flank pain or hematuria or dysuria or other voiding sx. Leg weakness has persisted. Allergies Allergy/AdvReac Type Severity Reaction Status Date / Time strawberry Allergy Unknown hives Unverified 03/04/21 00:06 Home Medications Medication Instructions Recorded Confirmed Type amiodarone 200 mg PO BID 03/03/21 03/04/21 History cholecalciferol (vitamin D3) 25 mcg PO DAILY 03/03/21 03/03/21 History [Vitamin D3] furosemide 40 mg PO UD 03/03/21 03/04/21 History levetiracetam 500 mg PO BID 03/03/21 03/04/21 History levothyroxine 75 mcg PO QAM 03/03/21 03/04/21 History metoprolol succinate 50 mg PO BID 03/03/21 03/04/21 History multivitamin 1 tab PO DAILY 03/03/21 03/04/21 History simvastatin 10 mg PO DAILY 03/03/21 03/04/21 History aspirin [Aspirin Low Dose] 81 mg PO QAM 03/04/21 03/04/21 History Patient History Medical History Atrial fibrillation s/p Watchman 01/2020 s/p cardioversion springMay 2020 Carotid stenosis, bilateral Chronic systolic heart failure EF 20-30% dx'd January 2020 CKD (chronic kidney disease) Stage 3B as of 05/2020 Colon cancer s/p surgery, XRT, CTX 2010 Hyperlipidemia Hypertension Staghorn calculus Surgical History Femur fracture, left s/p 2019 ORIF History of colectomy 2009 for colon CA R chad Presence of Watchman left atrial appendage closure device placed 01/2020 in [facility] [place] Family History Sister Cancer Social History Smoking Status: Never smoker Hx Alcohol Use: No Hx Substance Use: No Preferred Language: Barbadian Communication Ability: Effective Beliefs That Will Affect Care: None Current Living Situation: Family Feels Safe at Home: Yes Review of Systems Review of Systems: All systems reviewed & are unremarkable except as noted in Subjective Physical Exam Constitutional: well developed and well nourished; no acute distress on RA, very small build Eyes: EOM intact bilaterally ENMT: Ears: no external ear abnormality Nose: no external nose abnormality Mouth: + dry oral mucous membranes; no dentures Neck: no nuchal rigidity Respiratory: normal respiratory effort; no labored breathing Auscultation: lungs clear to auscultation bilaterally and + diminished lung sounds Cardiovascular: Rate/Rhythm: + irregularly irregular Extremities: + edema (2+ BLE distally, 1 + to hips; no sacral edema) Gastrointestinal (Abdomen): Inspection/Auscultation: normal bowel sounds Percussion/Palpation: abdomen soft; abdomen nontender Musculoskeletal: Extremities: strength 5/5 throughout Skin: no rashes, warm and dry + ecchymosis (scattered) Neurologic: woodruff, fluent speech, no tremor Psychiatric: Orientation: alert, oriented x 3 and cooperative Speech: normal rate/rhythm/volume of speech Affect: euthymic affect Insight: good insight Judgement: good judgement Genitourinary: no cruz Results & Data ([facility]) Vital Signs (Past 12 Hours) Vital Signs Temp Pulse Pulse Resp BP BP Pulse Ox 03/04/21 07:00 36.8 C 88 18 124/60 96 03/04/21 06:32 89 16 118/72 93 03/04/21 06:05 88 20 120/92 95 03/04/21 04:44 88 18 106/84 98 03/04/21 04:06 91 H 26 H 112/68 92 03/04/21 03:00 94 H 26 H 92 03/04/21 02:30 96 H 26 H 94 03/04/21 02:00 89 24 92 03/04/21 01:52 92 H 20 108/80 93 03/04/21 01:30 92 H 27 H 94 03/04/21 01:03 102 H 13 108/80 95 03/03/21 23:57 90 18 93 03/03/21 23:56 102 H 31 H 117/92 92 03/03/21 23:41 103 H 28 H 126/62 91 03/03/21 23:35 95 H 20 126/62 93 03/03/21 23:18 36.5 C 89 20 114/70 94 Laboratory Results 03/04/21 00:00 03/04/21 00:00 albumin 3.1 pro bpn 9K ALT>>AST, alk phos all up and mild bilirubin elevations UA: cloudy dark yellow 1019 sg; 1+ protein 2+ blood 2+ LE, > 30 WBC & epi; no bacteria; al indices negative tsh elevated w/ high T4 Diagnostic Findings TTE today moderate CLVH; EF 35%, mod R atrial dilatation, RV pressure 50-60 admission cxr: Cardiomegaly and radiographic evidence of mild distal failure/fluid overload. Small right pleural effusion. Basilar opacities, statistically atelectatic. BL venous dopplers > no DVT CT a/p non con Lower chest: There is a [id number] right pleural effusion. There are right lower lobe airspace opacities, atelectatic versus pneumonia. The heart is enlarged. There are minor left basilar atelectatic changes. Liver: The unenhanced liver is normal in size, contour, and attenuation. There is no intrahepatic biliary ductal dilatation. Gallbladder: Cholelithiasis Spleen: Normal in size and attenuation. Pancreas: Unremarkable. Adrenal glands: Unremarkable. Kidneys: There is a 3 cm staghorn left renal calculus. There is an obstructing 18 x 7 x 7 mm left UPJ calculus. Bowel: There are no transition zones indicate bowel obstruction. There is colonic diverticulosis. There is no evidence of acute diverticulitis. The patient appears be status post a prior right hemicolectomy with ileocolic lesa stomosis.. Peritoneum: There is low volume ascites. Vasculature: The abdominal aorta is normal in course and caliber. Adenopathy: None. Pelvic viscera: The bladder, and pelvic viscera are unremarkable. Skeletal structures: Postsurgical changes involve the left hip there is a scoliosis. There is a grade 1 spondylolisthesis of L5 on S1 IMPRESSION: 1. Postsurgical changes of a right hemicolectomy 2. Colonic diverticulosis. No evidence of acute diverticulitis 3. 3 cm staghorn left renal calculus. 4. Obstructing 18 x 7 x 7 mm left UPJ calculus 5. Cholelithiasis 6. Low volume ascites
--- NOTE | 2021-03-04 08:33 | CT Scan Report ---
CT SCAN OF THE ABDOMEN AND PELVIS WITHOUT CONTRAST CLINICAL HISTORY: Nausea, kidney stones. Lower extremity edema. Possible obstruction. COMPARISON STUDY: 06/11/2015 TECHNIQUE: CT scan of the abdomen and pelvis was performed from the lung bases to the proximal femurs . Images are reviewed in the axial, sagittal, and coronal planes. IV contrast was not administered fo r this examination. A dose lowering technique was utilized adhering to the principles of ALARA. CT DOSE: 406.79 mGy.cm FINDINGS: Lower chest: There is a [id number] right pleural effusion. There are right lower lobe airspace opacities, atelectatic versus pneumonia. The heart is enlarged. There are minor left basilar atelect atic changes. Liver: The unenhanced liver is normal in size, contour, and attenuation. There is no intrahepatic talia iary ductal dilatation. Gallbladder: Cholelithiasis Spleen: Normal in size and attenuation. Pancreas: Unremarkable. Adrenal glands: Unremarkable. Kidneys: There is a 3 cm staghorn left renal calculus. There is an obstructing 18 x 7 x 7 mm left UPJ calculus. Bowel: There are no transition zones indicate bowel obstruction. There is colonic diverticulosis. The re is no evidence of acute diverticulitis. The patient appears be status post a prior right hemicolec christopher with ileocolic anastomosis.. Peritoneum: There is low volume ascites. Vasculature: The abdominal aorta is normal in course and caliber. Adenopathy: None. Pelvic viscera: The bladder, and pelvic viscera are unremarkable. Skeletal structures: Postsurgical changes involve the left hip there is a scoliosis. There is a grade 1 spondylolisthesis of L5 on S1 IMPRESSION: 1. Postsurgical changes of a right hemicolectomy 2. Colonic diverticulosis. No evidence of acute diverticulitis 3. 3 cm staghorn left renal calculus. 4. Obstructing 18 x 7 x 7 mm left UPJ calculus 5. Cholelithiasis 6. Low volume ascites ACT 112: Negative or not required by law. Electronically signed by: Wyatt Batista M.D. 03/04/2021 8:31 AM
[2021-03-04] MEDS ORDERED: AMIODARONE 200 MG TAB PO SCH (09:00)
[2021-03-04] MEDS: HEPARIN SOD 5,000 UNIT/0.5 ML VIAL SQ SCH ×3 (09:43→20:16)
[2021-03-04] MEDS: MULTIVITAMIN TAB PO SCH (09:44)
[2021-03-04] MEDS: levETIRAcetam 500 MG TAB PO SCH ×2 (09:44→20:16)
[2021-03-04] MEDS: ASPIRIN 81 MG ECTAB PO SCH (09:44)
[2021-03-04] MEDS: SIMVASTATIN 10 MG TAB PO SCH (09:44)
[2021-03-04] MEDS: METOPROLOL SUCC 50MG EXT REL TAB PO SCH ×2 (09:44→20:16)
[2021-03-04] MEDS: CHOLECALCIFEROL 1,000 UNITS 25 MCG TAB PO SCH (09:44)
[2021-03-04] MEDS ORDERED: FUROSEMIDE 40 MG in SYRINGE 0 ML IV ONE (10:35)
--- NOTE | 2021-03-04 10:43 | Communication Note ---
Date of Service: March 04, 2021 80-year-old woman with history of hypothyroidism, CKD 3, A. fib, heart failure, Afib, s/p watchman device, hypertension and other medical problems as detailed in H&P who presents for worsening leg swelling and generalized weakness. Patient presented for similar symptoms to [place] a week ago. History and physical exam as detailed by Dr. Perdomo in H&P this morning Patient seen and examined. Does acknowledge progressive weakness, leg swelling, occasional cough. Patient reports that she sleeps an inclined position almost sitting up out of comfort. No reported paroxysmal nocturnal dyspnea or exertional dyspnea Physical exam is notable for mildly diminished breath sounds right lung base, 2+ bilateral pitting edema in the lower extremities, irregular pulse Lab work notable for WBC of 16, creatinine of 3.31, phosphorus of 5.8, magnesium of 2.7, bilirubin of 1.3, AST of 77, ALT of 134, alkaline phosphatase of 300, BNP of 9623, TSH of 9.22, free T4 of 1.77. Chest x-ray showed cardiomegaly with small right pleural effusion basilar opacities likely atelectatic CT abdomen pelvis show postsurgical changes of right hemicolectomy 3 cm staghorn left renal calculus, obstructing 18 x 7 x 7 mm left UPJ calculus, cholelithiasis, low volume ascites. 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 Will start IV Lasix 20 twice daily and monitor Patient will need urology intervention. Will appreciate cardiology evaluation prior to procedure Get records from recent hospitalization in [place] Get Free T3. May need to discuss TFT results with Shoe Shanker Other plans as detailed in H/P by Dr Perdomo
[2021-03-04] MEDS: FUROSEMIDE 20 MG in SYRINGE 0 ML IV SCH ×2 (11:46→17:41)
--- NOTE | 2021-03-04 14:16 | Electrocardiogram Report ---
Test Reason : Blood Pressure : / mmHG Vent. Rate : 103 BPM Atrial Rate : 077 BPM P-R Int : 000 ms QRS Dur : 180 ms QT Int : 426 ms P-R-T Axes : 000 121 051 degrees QTc Int : 558 ms Atrial fibrillation with rapid ventricular response Right axis deviation Left bundle branch block Abnormal ECG When compared with ECG of 13-JUN-2015 18:28, Atrial fibrillation has replaced Sinus rhythm Vent. rate has increased BY 38 BPM Left bundle branch block is now Present Confirmed by Brian Culp ([id number]) on 03/04/2021 2:16:03 PM Referred By: REFERRED SELF Confirmed By:Miko Culp
[2021-03-04 15:59] LABS: Creatinine Urine Random 98.7 mg/dl; Protein Creatinine Ratio Urine 0.6 (0-0.2); Total Protein Urine Random 57.3 mg/dl (0-11.9)
--- NOTE | 2021-03-04 17:01 | Cardiology Consultation ---
Date of Consultation March 04, 2021 Assessment & Plan (1) Acute on chronic systolic heart failure: Patient is a complex 80-year-old female as outlined previously followed at [facility]/ [place] cardiology with underlying issues including longstanding cardiomyopathy, paroxysmal question persistent atrial fibrillation with recent hospitalization with atrial fibrillation with rapid response. She remains in atrial fibrillation per review of records appears to be plans for long-term rate control. Underwent watchman procedure to mitigate use of anticoagulants in the past. Current complaining of edema with only mild volume overload on exam no signs of hypoxia or pulmonary edema. Heart rate relatively well controlled. Current course complicated by acute on chronic renal failure possibly secondary to obstructive uropathy Recommendations: Would discontinue amiodarone given plans for long-term rate control only. Possibly increase metoprolol if necessary for further rate control Low-dose diuretics already ordered would not increase given clinical stability predominant issues being lower extremity edema Compression stockings to be placed We will obtain records of recent MEE[facility] We will follow as clinical course progress (2) Atrial fibrillation: (3) Acute on chronic renal insufficiency: (4) Staghorn calculus: History of Present Illness Reason for Consultation: Edema Requesting Physician: Dr Argueta Attending Physician: Rosemary Argueta MD History of Present Illness Patient is a complex 80-year-old female with recent hospitalization at [facility]. Her ongoing issues as per review of records and discussion with patient include 1. Past paroxysmal now persistent atrial fibrillation on chronic amiodarone therapy 2. Diffuse cardiomyopathy with variable degree LV dysfunction most recent ejection fraction 30-35% 3. No obstructive coronary disease by remote cardiac catheterization 2006 4. Watchman device in substitution for chronic anticoagulation placed January 2020 5. Acute on chronic renal insufficiency with component of obstructive uropathy 6. Mitral tricuspid insufficiency with biatrial enlarged Patient is referred after presenting to this hospital noting having been discharged earlier this past week 02/24/2021 from [facility]. Patient frustrated due to persistent lower extremity edema. Review of records notes patient presenting with atrial fibrillation with rapid response, acute kidney injury, lower extremity weakness. Review of records amiodarone was increased from 100 mg/day to 200 mg twice per day, metoprolol increased, diuretics and KEKE inhibitor discontinued. MEENAKSHI report demonstrated well-seated watchman device Patient declined synchronized cardioversion per outpatient cardiology follow-up Patient currently denies any acute complaints other than lower extremity edema. Does sleep with multiple pillows upright at home but no overt orthopnea. Notes no acute change in weight per patient appetite only fair notes no fevers chills or cough notes no chest pains notes no dizziness or lightheadedness. No bleeding difficulties or past history of bleeding disorder Patient compliant with medications without difficulty. Allergies Allergy/AdvReac Type Severity Reaction Status Date / Time strawberry Allergy Unknown hives Unverified 03/04/21 00:06 Home Medications Medication Instructions Recorded Confirmed Type amiodarone 200 mg PO BID 03/03/21 03/04/21 History cholecalciferol (vitamin D3) 25 mcg PO DAILY 03/03/21 03/03/21 History [Vitamin D3] furosemide 40 mg PO UD 03/03/21 03/04/21 History levetiracetam 500 mg PO BID 03/03/21 03/04/21 History levothyroxine 75 mcg PO QAM 03/03/21 03/04/21 History metoprolol succinate 50 mg PO BID 03/03/21 03/04/21 History multivitamin 1 tab PO DAILY 03/03/21 03/04/21 History simvastatin 10 mg PO DAILY 03/03/21 03/04/21 History aspirin [Aspirin Low Dose] 81 mg PO QAM 03/04/21 03/04/21 History Patient History Medical History Atrial fibrillation s/p Watchman 01/2020 s/p cardioversion springMay 2020 Carotid stenosis, bilateral Chronic systolic heart failure EF 20-30% dx'd January 2020 CKD (chronic kidney disease) Stage 3B as of 05/2020 Colon cancer s/p surgery, XRT, CTX 2009 Hyperlipidemia Hypertension Staghorn calculus Surgical History Femur fracture, left s/p 2019 ORIF History of colectomy 2009 for colon CA R chad Presence of Watchman left atrial appendage closure device placed 01/2020 in [facility] Family History Sister Cancer Social History Smoking Status: Never smoker Hx Alcohol Use: No Hx Substance Use: No Preferred Language: Khmer Communication Ability: Effective Beliefs That Will Affect Care: None Current Living Situation: Family Feels Safe at Home: Yes Assistive Devices: Denture - Upper, Denture - Lower, Glasses and Walker Review of Systems Review of Systems: All systems reviewed & are unremarkable except as noted in HPI & below Physical Exam Constitutional: no acute distress Eyes: PERRL, conjunctivae normal, anicteric sclerae ENMT: external ear and nose normal, oropharynx normal Neck: trachea midline, no thyromegaly Respiratory: normal respiratory effort, lungs clear to auscultation Cardiovascular: Rate/Rhythm: + irregularly irregular Heart Sounds: normal S1 and normal S2; no gallop and no murmur Palpation: normal PMI Vessels: n ormal carotid upstroke and radial pulses present; no JVD and no carotid bruit Extremities: + edema (2-3+ bilateral lower extremity) Gastrointestinal (Abdomen): normal bowel sounds, soft, nontender, no hepatosplenomegaly Musculoskeletal: no cyanosis or clubbing, extremities motor strength 5/5 Skin: no rashes, warm and dry Neurologic: PERRL, EOMI, accommodation nl, no face palsy, no dysarthria Psychiatric: A+Ox3, euthymic affect Results & Data ([facility]) Vital Signs (Past 12 Hours) Vital Signs Temp Pulse Pulse Pulse Resp BP Pulse Ox 03/04/21 16:09 96 H 03/04/21 14:59 36.3 C L 100 H 16 114/80 97 03/04/21 12:14 36.5 C 88 18 128/71 95 03/04/21 08:00 96 H 03/04/21 07:00 36.8 C 88 18 124/60 96 03/04/21 06:32 89 16 118/72 93 03/04/21 06:05 88 20 120/92 95
--- NOTE | 2021-03-05 03:39 | Hospitalist Progress Note ---
Date of Service March 05, 2021 Assessment & Plan Admission and Anticipated Discharge Date Admission Date: March 04, 2021 Subjective having some hematuria. Stopped heparin sub q. To monitor. Urology on board. Thanks Results & Data Results & Data ([facility]) Vital Signs (Past 12 Hours) Vital Signs Temp Pulse Pulse Resp BP Pulse Ox 03/05/21 03:35 36.0 C L 96 H 18 118/81 93 03/04/21 23:28 36.8 C 91 H 19 98/78 L 93 03/04/21 19:25 36.4 C L 78 19 108/78 93 03/04/21 16:09 96 H
[2021-03-05 05:54] LABS: Basophils # (auto) 0.01 K/uL (0-0.2); Basophils % (auto) 0.1 %; Eosinophils # (auto) 0.04 K/uL (0-0.5); Eosinophils % (auto) 0.3 %; Hematocrit (blood only) 41.3 % (37-47); Hemoglobin 13.6 g/dL (12.0-16.0); Immature Granulocytes # (auto) 0.05 K/uL (0.00-0.02); Immature Granulocytes % (auto) 0.4 %; Lymphocytes # (auto) 1.43 K/uL (1.2-3.4); Lymphocytes % (auto) 10.6 %; Mean Corpuscular Hemoglobin 29.8 pg (25-34); Mean Corpuscular Hgb Conc 32.9 g/dL (32-36); Mean Corpuscular Volume 90.4 fL (80-100); Mean Platelet Volume 10.4 fL (7.4-10.4); Monocytes # (auto) 0.72 K/uL (0.11-0.59); Monocytes % (auto) 5.3 %; Neutrophils # (auto) 11.25 K/uL (1.4-6.5); Neutrophils % (auto) 83.3 %; Nucleated RBC # (auto) 0.08 K/uL (0-0); Nucleated RBC % (auto) 0.6 %; Platelet Count 210 K/uL (130-400); RDW Coefficient of Variation 17.9 % (11.5-14.5); Red Blood Count 4.57 M/uL (4.2-5.4)
[2021-03-05 06:01] LABS: INR 1.5 (0.9-1.1); Prothrombin Time 14.4 Seconds (9.0-12.0)
[2021-03-05] MEDS: LEVOTHYROXINE SODIUM 75 MCG TABLET PO SCH (06:14)
[2021-03-05 06:26] LABS: Albumin Level 2.8 gm/dl (3.4-5.0); BUN Creatinine Ratio 23.4 (10-20); Bilirubin Direct 0.5 mg/dl (0-0.2); Calcium 8.4 mg/dl (8.5-10.1); Creatinine Clr Calc Pharmacy 10.8 ml/min; Est GFR (African American) 13.6; Est GFR (Non-African American) 11.7; Magnesium 2.7 mg/dl (1.8-2.4); Potassium 4.3 mmol/L (3.5-5.1)
[2021-03-05 06:37] LABS: Bilirubin,Total 1.2 mg/dl (0.2-1); Thyroid Stimulating Hormone 6.28 uIu/ml (0.300-4.500); Total Protein 6.5 gm/dl (6.4-8.2)
[2021-03-05 06:50] LABS: T4 Free Thyroxine 1.79 ng/dl (0.8-1.6)
[2021-03-05] MEDS: cefTRIAXone SODIUM 1,000 MG in DEXTROSE 5% 50 ML IV SCH (08:12)
[2021-03-05] MEDS: METOPROLOL SUCC 50MG EXT REL TAB PO SCH (08:13)
[2021-03-05] MEDS: MULTIVITAMIN TAB PO SCH (08:13)
[2021-03-05] MEDS: levETIRAcetam 500 MG TAB PO SCH ×2 (08:13→20:54)
[2021-03-05] MEDS: FUROSEMIDE 20 MG in SYRINGE 0 ML IV SCH (08:13)
[2021-03-05] MEDS: SIMVASTATIN 10 MG TAB PO SCH (08:13)
[2021-03-05] MEDS: ASPIRIN 81 MG ECTAB PO SCH (08:13)
[2021-03-05] MEDS: CHOLECALCIFEROL 1,000 UNITS 25 MCG TAB PO SCH (08:14)
--- NOTE | 2021-03-05 09:33 | Nephrology Progress Note ---
Date of Service March 05, 2021 Assessment & Plan (1) Acute on chronic renal insufficiency: prior baseline creatinine in early to mid 2019 had been 1.4, CKD 3B, eGFR mid 30s with about 300 mg proteinuria. most recent labs before this admission are 4/7 w/ 2.6 creatinine on presentation to OSH, 3.1 at d/c; up to 3.3 by presentation here and on slow but continued up trend. cardiorenal syndrome is likeliest culprit here; obstructive uropathy is also a working diagnosis, though this is not likely to cause the fluid overload she is having. chemistries acceptable for now, hyperphosphatemia noted. -after discussion between services, for stent placement today -lasix as below -cont 1.5L FR and <2 gm daily Na diet; no renal diet needed yet -no urgent need for dialysis but cannot rule out need this admission; I did discuss this with her briefly ->>defer to primary service to dose meds appropriately for liver and renal failure; liver issues likely congestive >will check prot/creat ratio given edema, hypoalbuminemia but stone dz may complicate interpretation - 600mg proteinuria; this is not nephrosis -driven edema >>with her volume overload, strict I/O and daily standing wts important Care coordinated w/ Dr Devries (2) Acute on chronic systolic heart failure: longstanding dx more actively clinically since spring 2019. mild fluid overload w/ ascites, edema, pl effusion; minimal dyspnea -lasix 20 mg IV bid > today lowered to 10 mg IV bid -daily standing wts, low Na diet, FR -f/u cardiology recs (3) Kidney stone: obstructing L stone plus L staghorn calculus for stent; then later will need definitive therapy of staghorn at tertiary care center Admission and Anticipated Discharge Date Admission Date: March 04, 2021 Subjective NPO this am for possible procedure--for L ureteral stent insertion,; stated when seen on rounds at 1020 this am that she felt about same as yesterday > still w/ edematous legs, still tired, struggling to take po; no dyspnea Review of Systems Review of Systems: All systems reviewed & are unremarkable except as noted in Subjective Physical Exam Constitutional: well developed and well nourished; no acute distress sitting up in chair on RA Eyes: EOM intact bilaterally ENMT: Ears: no external ear abnormality Nose: no external nose abnormality Mouth: + dry oral mucous membranes; no dentures Neck: no nuchal rigidity Respiratory: normal respiratory effort; no labored breathing Auscultation: lungs clear to auscultation bilaterally and + diminished lung sounds Cardiovascular: Rate/Rhythm: + irregularly irregular Extremities: + edema (2+ BLE distally, 1 + to hips; no sacral edema) Gastrointestinal (Abdomen): Inspection/Auscultation: normal bowel sounds Percussion/Palpation: abdomen soft; abdomen nontender Musculoskeletal: Extremities: strength 5/5 throughout Skin: no rashes, warm and dry + ecchymosis (scattered) Neurologic: woodruff, fluent speech, no tremor Psychiatric: Orientation: alert, oriented x 3 and cooperative Speech: normal rate/rhythm/volume of speech Affect: euthymic affect Insight: good insight Judgement: good judgement Genitourinary: cruz present w/ ample yellow urine Results & Data ([facility]) Vital Signs (Past 12 Hours) Vital Signs Temp Pulse Resp BP Pulse Ox 03/05/21 07:06 36.8 C 93 H 16 113/79 92 03/05/21 03:35 36.5 C 96 H 18 118/81 93 03/04/21 23:28 36.8 C 91 H 19 98/78 L 93 Laboratory Results 03/05/21 05:21 03/05/21 05:21 600 mg proteinuria
--- NOTE | 2021-03-05 10:06 | Urology Progress Note ---
Date of Service March 05, 2021 Assessment & Plan (1) Staghorn calculus: (2) Calculus of proximal left ureter: 80 yo F admitted for weakness, LE edema, acute on chronic renal insufficiency, possible pneumonia; staghorn calculus. - Pt seen with Dr. Fortune, urologist it security consultant - She remains afebrile, nontoxic and no pain at present - BCx no growth x 24 days, Urine culture pending - continue IV antibiotics per primary team and follow cultures - Lab work reviewed - creatinine increased to 3.45 today, WBC improved to 13.5 - continue to trend - Pt with multiple comorbidities and acute issues - Patient had breakfast this AM. No acute intervention planned today. - Recommend left ureteral stent when medically stable/optimized from medical/cardiology standpoint- discussed with hospitalist - Recommend NPO at midnight for possible stent placement tomorrow Please consult our service urgently if patient develops fever >101F, intractable pain or nausea, as this will necessitate urgent surgical intervention. Thank you for the consultation and we will continue to monitor closely with primary service. Admission and Anticipated Discharge Date Admission Date: March 04, 2021 Supervising Physician Co-Signing Physician Notes Discussed in a group meeting with cardiology, nephrology , hospitalists and there was agreement on placing a stent today to try to improve renal and thus cardiology function . Discussed transfer to [place] for perc nephrostomy but agreed to start w stent today to maximize recovery . She may need a percutaneous nephrolithotomy in the future at a tertiary center or ureteroscopy there due to her comorbidities. Consented patient and spoke with her son . Subjective Pt seen and examined with Dr. Fortune this AM. She is awake and sitting up in bedside chair. Denies flank or abdominal pain. She continues to feel weak, but otherwise offers no complaints. Tolerating Odell catheter. Odell intact, patent, and draining clear pink/light red tinged urine. No nausea or vomiting. No fever or chills. No CP or SOB. She reports that she had breakfast this AM. No additional concerns at this time. Chart review: Afebrile. Creatinine 3.45, WBC 13.5, Hgb 13.6. Bcx no growth x 24 hours, UC&S pending. On IV Ceftriaxone. Review of Systems Constitutional: as per Subjective / HPI Respiratory: no dyspnea Cardiovascular: no chest pain Gastrointestinal: as per Subjective / HPI Genitourinary: as per Subjective / HPI Physical Exam Constitutional: well developed and well nourished; no acute distress and not ill appearing Respiratory: normal respiratory effort and able to speak in complete sentences; no respiratory distress and no labored breathing Cardiovascular: +2 bilateral pitting edema in lower extremities Gastrointestinal (Abdomen): Inspection/Auscultation: abdomen normal to inspect ion; abdomen not distended Percussion/Palpation: abdomen soft; abdomen nontender Musculoskeletal: Head/Neck/Chest: normocephalic and head atraumatic Skin: warm and dry, scattered ecchymosis Neurologic: awake Psychiatric: Orientation: alert and oriented x 3 Genitourinary: Odell catheter intact, patent and draining clear pink to light red tinged urine Results & Data ([facility]) Vital Signs (Past 12 Hours) Vital Signs Temp Pulse Resp BP Pulse Ox 03/05/21 07:06 36.8 C 93 H 16 113/79 92 03/05/21 03:35 36.5 C 96 H 18 118/81 93 03/04/21 23:28 36.8 C 91 H 19 98/78 L 93 PG Care Time/CCT Total # of Minutes Spent Total Time Spent with Patient: Total time spent is greater than 50% in coordination of care (as documented) at patient's floor/unit and/or counseling patient: Coding Level of Care Code 43580 Subseq Hosp Care Lvl 2 Diagnoses Staghorn calculus N20.0 Calculus of proximal left ureter N20.1
[2021-03-05] MEDS ORDERED: fentaNYL citrate 100 MCG/2 ML VIAL ONE (12:41)
[2021-03-05] MEDS ORDERED: ONDANSETRON INJ 2 MG/ML 2 ML VIAL ONE (12:42)
[2021-03-05] MEDS ORDERED: PROPOFOL IV EMULSION 10 MG/ML 20 ML VIAL IV ONE (12:42)
[2021-03-05] MEDS ORDERED: LIDOCAINE HCL 2% 2 ML VIAL/AMP(20MG/ML) INFIL ONE (12:42)
[2021-03-05] MEDS ORDERED: ATROPINE SULFATE 0.1 MG/ML 10ML SYR IV PRN (13:07)
[2021-03-05] MEDS ORDERED: LABETALOL HCL IV 5 MG/ML 20ML IV PRN (13:07)
[2021-03-05] MEDS ORDERED: PHENYLEPHRINE 100MCG/ML 5ML SYR IV PRN (13:07)
[2021-03-05] MEDS ORDERED: ePHEDrine sulfate 50 MG/ML AMP IV PRN (13:07)
[2021-03-05] MEDS ORDERED: fentaNYL citrate 100 MCG/2 ML VIAL IV PRN (13:07)
[2021-03-05] MEDS ORDERED: ONDANSETRON INJ 2 MG/ML 2 ML VIAL IV PRN (13:07)
--- NOTE | 2021-03-05 13:10 | Anesthesiology Consultation ---
Date of Service March 05, 2021 Assessment & Plan (1) Encounter for pre-operative examination: Chart Review Chart Review: Acceptable Risk for Surgery (necessary surgery) and Patient NOT seen in Pre Admission Testing Consults Requested none History Surgery Operation Date: 03/05/21 11:20 Proposed Procedures p Cystoscopy Left Ureteral Stent Insertion - Juan Jose Fortune MD Height/Weight Height: 5 ft Weight: 68 kg Allergies Allergy/AdvReac Type Severity Reaction Status Date / Time strawberry Allergy Unknown hives Unverified 03/04/21 00:06 Medications Home Medications Medication Instructions Recorded Confirmed Last Taken amiodarone 200 mg PO BID 03/03/21 03/04/21 03/03/21 cholecalciferol (vitamin D3) 25 mcg PO DAILY 03/03/21 03/03/21 Unknown [Vitamin D3] furosemide 40 mg PO UD 03/03/21 03/04/21 03/03/21 levetiracetam 500 mg PO BID 03/03/21 03/04/21 03/03/21 levothyroxine 75 mcg PO QAM 03/03/21 03/04/21 03/03/21 metoprolol succinate 50 mg PO BID 03/03/21 03/04/21 03/03/21 multivitamin 1 tab PO DAILY 03/03/21 03/04/21 03/03/21 simvastatin 10 mg PO DAILY 03/03/21 03/04/21 03/03/21 aspirin [Aspirin Low Dose] 81 mg PO QAM 03/04/21 03/04/21 03/03/21 Active Medications Generic Name Dose Route Start Last Admin Trade Name Freq PRN Reason Stop Dose Admin Aspirin 81 mg 03/04/21 09:00 03/05/21 08:13 Aspirin 81 Mg Ectab PO 04/03/21 08:59 81 mg QAM NICHOLAS Administration Ceftriaxone Sodium 1,000 mg/ 50 mls @ 100 mls/hr 03/05/21 07:00 03/05/21 08:53 Dextrose IV 03/15/21 06:59 Infused Q24H NICHOLAS Infusion Protocol Levetiracetam 500 mg 03/04/21 09:00 03/05/21 08:13 Levetiracetam 500 Mg Tab PO 04/03/21 08:59 500 mg BID NICHOLAS Administration Levothyroxine Sodium 75 mcg 03/04/21 06:45 03/05/21 06:14 Levothyroxine Sodium 75 Mcg Tablet PO 04/03/21 06:44 75 mcg DAILYBB NICHOLAS Administration Metoprolol Succinate 50 mg 03/04/21 09:00 03/05/21 08:13 Metoprolol Succ 50mg Ext Rel Tab PO 04/03/21 08:59 50 mg BID NICHOLAS Administration Multivitamins 1 tab 03/04/21 09:00 03/05/21 08:13 Multivitamin Tab PO 04/03/21 08:59 1 tab DAILY NICHOLAS Administration Simvastatin 10 mg 03/04/21 09:00 03/05/21 08:13 Simvastatin 10 Mg Tab PO 04/03/21 08:59 10 mg DAILY NICHOLAS Administration Vitamin D 1,000 units 03/04/21 09:00 03/05/21 08:14 Cholecalciferol 1,000 Units 25 Mcg Tab PO 04/03/21 08:59 1,000 units DAILY NICHOLAS Administration NPO Date Last Intake of Fluids: 03/05/21 Time Last Intake of Fluids: 09:00 Date Last Intake of Solids: 03/05/21 Time Last Intake of Solids: 09:00 Last Intake of Solids Comment: bite of banana and orange Past Medical History Medical History Atrial fibrillation s/p Watchman 01/2020 s/p cardioversion springMay 2020 Carotid stenosis, bilateral Chronic systolic heart failure EF 20-30% dx'd January 2020 CKD (chronic kidney disease) Stage 3B as of 05/2020 Colon cancer s/p surgery, XRT, CTX 2009 Hyperlipidemia Hypertension Staghorn calculus Past Family History Family History Sister Cancer Past Surgical History Surgical History Femur fracture, left s/p 2019 ORIF History of colectomy 2010 for colon CA R chad Presence of Watchman left atrial appendage closure device placed 01/2020 in [facility] Social History Smoking Status: Never smoker Hx Alcohol Use: No Hx Substance Use: No Physical Exam Vital Signs Last Vital Signs Temp 36.4 C L 03/05/21 12:17 Pulse 98 H 03/05/21 12:17 Resp 20 03/05/21 12:17 BP 141/86 H 03/05/21 12:17 Pulse Ox 93 03/05/21 12:17 Testing Laboratory Results 03/05/21 05:21 03/05/21 05:21 PT 14.4 Seconds (9.0-12.0) H 03/05/21 05:21 INR 1.5 (0.9-1.1) H 03/05/21 05:21 Urine Color Dark Yellow 03/04/21 04:54 Urine Appearance Cloudy (Clear) A 03/04/21 04:54 Urine pH 5.0 (4.5-7.5) 03/04/21 04:54 Ur Specific [place] 1.019 (1.000-1.030) 03/04/21 04:54 Urine Protein 1+ (Negative) H 03/04/21 04:54 Urine Glucose (UA) Negative (Negative) 03/04/21 04:54 Urine Ketones Negative (Negative) 03/04/21 04:54 Urine Nitrite Negative (Negative) 03/04/21 04:54 Ur Leukocyte Esterase 2+ (Negative) H 03/04/21 04:54 Urine WBC (Auto) >30 /hpf (0-5) H 03/04/21 04:54 Urine RBC (Auto) 0-4 /hpf (0-4) 03/04/21 04:54 U Hyaline Cast (Auto) >30 /lpf (0-5) H 03/04/21 04:54 U Epithel Cells (Auto) >30 /lpf (0-5) H 03/04/21 04:54 Urine Bacteria (Auto) Negative (Negative) 03/04/21 04:54 03/04/21 04:54 Urine Culture - Preliminary Urine,Straight Cath No growth - Less than 1,000 colonies/mL, Final report to follow. 03/04/21 04:14 Aerobic Blood Culture - Preliminary Blood No growth in Aerobic bottle after 24 hours. Anaerobic Blood Culture - Preliminary No growth in Anaerobic bottle after 24 hours. 03/04/21 04:13 Aerobic Blood Culture - Preliminary Blood No growth in Aerobic bottle after 24 hours. Anaerobic Blood Culture - Preliminary No growth in Anaerobic bottle after 24 hours. Electrocardiogram Date: 03/03/21 Findings: + AFIB @ (101 RVR) and + LBBB Chest X-Ray Date: 03/03/21 XR chest 1V portable CLINICAL HISTORY: Atypical chest pain COMPARISON STUDY: 06/14/2015 FINDINGS: The heart is enlarged. There is mild pulmonary vascular congestion/fluid overload. There is a suspected small right pleural effusion. There are basilar opacities, likely atelectatic.[ IMPRESSION: Cardiomegaly and radiographic evidence of mild distal failure/fluid overload. Small right pleural effusion. Basilar opacities, statistically atelectatic. ACT 112: Negative or not required by law. Electronically signed by: Wyatt Batista M.D. 03/04/2021 7:24 AM Dictated: 03/04/21722Transcribed: 03/04/21722 Echocardiogram Date: 03/04/21 EF: 35-40 LV Function: dysfunctional Other Findings: + atrial enlargement (biatrial) and + LVH (moderate) Valvular Disease: + MR (moderate) moderate to severe TR, RVSP 50-60, conduction abnormality Other Testing CT head/brain wo con CLINICAL HISTORY: weakness COMPARISON STUDY: No previous studies for comparison. TECHNIQUE: Axial CT of the brain is performed from the vertex to the skull base. IV contrast was not administered for this examination. A dose lowering technique was utilized adhering to the principles of ALARA. CT DOSE: 614.27 mGy.cm FINDINGS: No intra or extra-axial mass lesions are visualized. There is no CT evidence of acute cortical infarction. There is no evidence of midline shift. There is no acute hemorrhage. No calvarial fractures are visualized. There are patchy white matter hypodensities likely on a small vessel basis. 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 There is no evidence of pathologic ventricular dilatation. There is a right maxillary sinus air-fluid level. IMPRESSION: 1. No acute intracranial findings 2. Inflammatory changes within the right maxillary sinus. ACT 112: Negative or not required by law. Electronically signed by: Wyatt Batista M.D. 03/04/2021 7:15 AM Dictated: 03/04/2114Transcribed: 03/04/21713
--- NOTE | 2021-03-05 13:26 | Hospitalist Progress Note ---
Date of Service March 05, 2021 Assessment & Plan (1) Acute on chronic systolic heart failure: Present on admission with b/l LE edema was recently admitted at [facility]/ [place] cardiology with underlying issues including longstanding cardiomyopathy, afib CXR showed cardiomegaly and radiographic evidence of mild distal failure/fluid overload. Small right pleural effusion. Currently on Lasix 20mg IV BID ECHO in this admission showed left ventricle is normal in size. Moderate concentric left ventricular hypertrophy. Septal motion is consistent with conduction abnormality. Moderate global hypokinesis of the left ventricle. Ejection fraction 35 to 40% Cardiology on board Lasix decreased to 10mg IV BID by the sales contract administrator Clinically stable Staghorn calculus Calculus of proximal left ureter CT abd/pelvis showed 3 cm staghorn left renal calculus. Obstructing 18 x 7 x 7 mm left UPJ calculus Urology on board plan for possible stent placement today Stable from cardiology standpoint to proceed for stent placement, but might need percutaneous procedure later at a tertiary center Continue IV abx for now Will keep NPO for now Afib Rate controlled with metoprolol Continue aspirin for now Continue monitor in tele Acute on chronic renal insufficiency Baseline creatinine was 1.4 in 2019 Creatinine 3.45 today Nephrology on board Avoid nephrotoxic agents Continue monitor BMP Transaminitis Mostly related to fluid overload Liver enzymes slightly trending down with AST from 77->70, ALT 134-> 129, ALK 300-> 289 CT abd/pelvis showed unenhanced liver is normal in size, contour, and attenuation. There is no intrahepatic biliary ductal dilatation. Will continue monitor LFT Will avoid hepatotoxic agents Hypothyroidism Elevated TSH possible related to acute illness Continue Levothyroxine Will need to repeat TSH in 4 weeks History of seizures Continue Aaron. History of colon cancer Status post partial removal of colon in 2012. Deep venous thrombosis prophylaxis Will add Heparin subQ. CODE STATUS FULL CODE Admission and Anticipated Discharge Date Admission Date: March 04, 2021 Subjective Pt was seen and examined for follow up of LE edema Sitting in chair with no distress Pt said that she does not have any SOB currently Denies any chest pain, palpitation, dizziness and SOB Review of Systems Review of Systems: All systems reviewed & are unremarkable except as noted in Subjective Physical Exam Physical Exam: General- No acute distress Head- atraumatic Eyes- PERRL, EOMI, ENT- oropharynx clear Neck- supple, no JVD Lungs- clear to auscultation Heart- irregular rhythm; Abdomen- normal bowel sounds, soft, nontender Extremities- no calf tenderness, +edema B/L Neuro- alert, oriented x 3; PERRL, EOMI; no facial palsy; no dysarthria Skin- warm & dry Results & Data Results & Data ([facility]) Vital Signs (Past 12 Hours) Vital Signs Temp Pulse Resp BP Pulse Ox 03/05/21 12:17 36.4 C L 98 H 20 141/86 H 93 03/05/21 11:10 36.4 C L 95 H 17 112/69 96 03/05/21 07:06 36.8 C 93 H 16 113/79 92 03/05/21 03:35 36.5 C 96 H 18 118/81 93
--- NOTE | 2021-03-05 15:08 | Cardiology Progress Note ---
Date of Service March 05, 2021 Assessment & Plan (1) Acute on chronic systolic heart failure: Patient is a complex 80-year-old female as outlined previously followed at [facility]/ [place] cardiology with underlying issues including longstanding cardiomyopathy, paroxysmal question persistent atrial fibrillation with recent hospitalization with atrial fibrillation with rapid response. She remains in atrial fibrillation per review of records appears to be plans for long-term rate control. Underwent watchman procedure to mitigate use of anticoagulants in the past. Current complaining of edema with only mild volume overload on exam no signs of hypoxia or pulmonary edema. Heart rate relatively well controlled. Current course complicated by acute on chronic renal failure possibly secondary to obstructive uropathy Recommendations: Renal function remains limiting with patient anticipating ureteral stent placement due to obstructive uropathy. Agree with plans for ureteral stenting Patient remains in atrial fibrillation with relatively controlled ventricular response rate. Will increase metoprolol succinate to 75 mg twice per day consider addition of digoxin depending on blood pressure response and renal stability Long-term management may consideration for biventricular pacemaker versus defibrillator Left ventricular ejection fraction variable in the past and significantly reduced since at least April 2020 Current echocardiogram and past records reflect at least moderate elevation in pulmonary pressures since prior to the April 2019 (2) Atrial fibrillation: As above ultimately would like rate better controlled. Previously maintaining sinus rhythm with amiodarone though unlikely to return to sinus rhythm and maintain (3) Acute on chronic renal insufficiency: (4) Staghorn calculus: Admission and Anticipated Discharge Date Admission Date: March 04, 2021 Subjective Patient seen and examined, chart, medications, telemetry reviewed. Still with lower extremity edema mild abdominal bloating. No chest pains, no sense of tachypalpitations, no dizziness or lightheadedness. No fevers chills or cough. Imaging reflects obstructive uropathy per report. Tentative plans for ureteral stenting later today Physical Exam Constitutional: no acute distress Eyes: PERRL, conjunctivae normal, anicteric sclerae ENMT: external ear and nose normal, oropharynx normal Neck: trachea midline, no thyromegaly Respiratory: normal respiratory effort, lungs clear to auscultation Cardiovascular: Rate/Rhythm: + irregularly irregular Heart Sounds: normal S1 and normal S2; no gallop and no murmur Palpation: normal PMI Vessels: normal carotid upstroke and radial pulses present; no JVD and no carotid bruit Extremities: + edema (2-3+ bilateral lower extremity) Gastrointestinal (Abdomen): normal bowel sounds, soft, nontender, no hepatosplenomegaly Musculoskeletal: no cyanosis or clubbing, extremities motor strength 5/5 Skin: no rashes, warm and dry Neurologic: PERRL, EOMI, accommodation nl, no face palsy, no dysarthria Psychiatric: A+Ox3, euthymic affect Results & Data ([facility]) Vital Signs (Past 12 Hours) Vital Signs Temp Pulse Resp BP Pulse Ox 03/05/21 14:19 36 C L 103 H 20 119/85 97 03/05/21 12:17 36.4 C L 98 H 20 141/86 H 93 03/05/21 11:10 36.4 C L 95 H 17 112/69 96 03/05/21 07:06 36.8 C 93 H 16 113/79 92 03/05/21 03:35 36.5 C 96 H 18 118/81 93 Laboratory Results Laboratory Results - last 24 hr 03/04/21 03/04/21 03/05/21 14:27 15:18 05:21 WBC RBC Hgb Hct MCV MCH MCHC RDW Std Deviation RDW Coeff of Lawrence Plt Count MPV Immature Gran % (Auto) Neut % (Auto) Lymph % (Auto) [place] % (Auto) Eos % (Auto) Baso % (Auto) Neut # (Auto) Lymph # (Auto) [place] # (Auto) Eos # (Auto) Baso # (Auto) Immature Gran # (Auto) Absolute Nucleated RBC Nucleated RBC % (auto) PT INR Sodium Potassium Chloride Carbon Dioxide Anion Gap BUN Creatinine Est Cr Clr Drug Dosing Est GFR ( Amer) Est GFR (Non-Af Amer) BUN/Creatinine Ratio Glucose Calcium Magnesium Total Bilirubin Direct Bilirubin AST ALT Alkaline Phosphatase Total Protein Albumin TSH Free T4 Free T3 1.37 L Ur Random Creatinine 98.7 U Random Total Protein 57.3 H Protein/Creatinin Ratio 0.6 H Stl C. diff Tox B Gene Negative Cdiff Gene 03/05/21 03/05/21 03/05/21 05:21 05:21 05:21 WBC 13.50 H RBC 4.57 Hgb 13.6 Hct 41.3 MCV 90.4 MCH 29.8 MCHC 32.9 RDW Std Deviation 57.0 H RDW Coeff of Lawrence 17.9 H Plt Count 210 MPV 10.4 Immature Gran % (Auto) 0.4 Neut % (Auto) 83.3 Lymph % (Auto) 10.6 [place] % (Auto) 5.3 Eos % (Auto) 0.3 Baso % (Auto) 0.1 Neut # (Auto) 11.25 H Lymph # (Auto) 1.43 [place] # (Auto) 0.72 H Eos # (Auto) 0.04 Baso # (Auto) 0.01 Immature Gran # (Auto) 0.05 H Absolute Nucleated RBC 0.08 H Nucleated RBC % (auto) 0.6 PT 14.4 H INR 1.5 H Sodium 137 Potassium 4.3 Chloride 105 Carbon Dioxide 22 Anion Gap 10.0 BUN 81 H Creatinine 3.45 H Est Cr Clr Drug Dosing 10.8 Est GFR ( Amer) 13.6 Est GFR (Non-Af Amer) 11.7 BUN/Creatinine Ratio 23.4 H Glucose 102 H Calcium 8.4 L Magnesium 2.7 H Total Bilirubin 1.2 H Direct Bilirubin 0.5 H AST 70 H ALT 129 H Alkaline Phosphatase 289 H Total Protein 6.5 Albumin 2.8 L TSH 6.280 H Free T4 1.79 H Free T3 Ur Random Creatinine U Random Total Protein Protein/Creatinin Ratio Stl C. diff Tox B Gene
--- NOTE | 2021-03-05 15:11 | Fluoroscopy Report ---
FL retrograde includes kub CLINICAL HISTORY: LEFT STENT CYSTO COMPARISON STUDY: CT of the abdomen and pelvis March 04, 2021. FLUOROSCOPY TIME: 27 seconds. FLUOROSCOPIC IMAGES: 3 FINDINGS: Fluoroscopy was provided during left retrograde exam. Left renal calculi are noted on the i nitial image. Ureteral stent is not well-visualized by fluoroscopy. Filling defect on the final image likely reflects a ureteral calculus. IMPRESSION: Fluoroscopy provided during left retrograde exam. ACT 112: Negative or not required by law. Electronically signed by: Alex Boucher M.D. 03/05/2021 3:09 PM
[2021-03-05] MEDS ORDERED: ePHEDrine sulfate 50 MG/ML SYR ONE (15:12)
[2021-03-05] MEDS ORDERED: PHENYLEPHRINE HCL 10 MG/ML VIAL ONE (15:12)
[2021-03-05] MEDS ORDERED: DIATRIZOATE MEGLUMINE 30% 100ML VIAL INSTIL ONE (15:15)
--- NOTE | 2021-03-05 15:31 | Anesthesiology Progress Note ---
Date of Service March 05, 2021 Anesthesia Post Procedure Vital Signs Vital Signs: Temp Pulse Pulse Pulse Resp BP Pulse Ox 03/05/21 15:25 36.3 C L 108 H 18 100/71 95 03/05/21 15:15 105 H 18 113/80 96 03/05/21 15:08 36.3 C L 109 H 16 128/81 97 03/05/21 14:19 36 C L 103 H 20 119/85 97 03/05/21 12:17 36.4 C L 98 H 20 141/86 H 93 03/05/21 11:10 36.4 C L 95 H 17 112/69 96 03/05/21 07:06 36.8 C 93 H 16 113/79 92 03/05/21 03:35 36.5 C 96 H 18 118/81 93 03/04/21 23:28 36.8 C 91 H 19 98/78 L 93 03/04/21 19:25 36.4 C L 78 19 108/78 93 03/04/21 16:09 96 H Transfer of Care Handoff Completed per policy Notes Mental Status: alert / awake / arousable Patient Amnestic to Procedure: Yes Nausea / Vomiting: adequately controlled Pain: adequately controlled Airway Patency, RR, SpO2: stable & adequate BP & HR: stable & adequate Hydration State: stable & adequate Anesthetic Complications: no major complications apparent and Pt Satisfied with anesthetic care Notes: The patient is awake and comfortable. Her vital signs are at her baseline.
--- NOTE | 2021-03-05 16:41 | Post Operative Brief Note ---
PG Immediate Post Op with CF Date of Surgery March 05, 2021 Pre & Post Diagnosis preop left ureteral stone post op same I identified the patient and participated in the time-out.: Yes Procedure cystoscopy ,left retrograde and left stent placement Surgeon Juan Jose Fortune MD Program Admin none Estimated Blood Loss 0 Findings Consistent with Post-Op Diagnosis
[2021-03-05] MEDS: FUROSEMIDE 10 MG in SYRINGE 0 ML IV SCH (17:12)
--- NOTE | 2021-03-05 18:57 | Operative Report (OR) ---
DATE OF OPERATION: 03/05/2021 PROCEDURE PERFORMED: Cystoscopy and left stent placement. INDICATIONS: The patient is an 80-year-old female admitted for weakness, left edema and renal insufficiency, who has an obstructing proximal left ureteral stone. The patient had been having this for some period of time without intervention. Discussed with the public affairs director, the hospitalist and the dry cleaning supervisor at a mini meeting in the [facility] and we all agreed that the patient needed a stent. Unfortunately, because of her overall condition, she may need to be transferred for treatment of the stone definitively if she is too high risk, but at this time, she needed a stent placement. Discussed with the patient. She agreed to proceed. DESCRIPTION OF THE PROCEDURE: She was taken to the cysto suite. She was given sedation. She was placed in dorsal lithotomy position, prepped and draped in the usual sterile fashion. A 21-[place] cystoscope was passed per urethra and the bladder was examined. There was no evidence of any mass in the bladder. A retrograde was performed. There was clearly an obstructing stone in the proximal ureter and hydronephrosis. I was able to pass a guidewire into the proximal ureter and then I passed a 4.8, 24 cm stent over this wire and into the proximal ureter. There was good flow from the stent at the end of the procedure in the bladder and the patient had a Odell catheter placed and was transferred back to the recovery room in stable condition. I attest to the content of the Intraoperative Record and any orders documented therein. Any exception s are noted below.
[2021-03-05] MEDS: METOPROLOL SUCC 25MG EXT REL TAB PO SCH (20:53)
[2021-03-06] MEDS: LEVOTHYROXINE SODIUM 75 MCG TABLET PO SCH (05:39)
[2021-03-06] MEDS: cefTRIAXone SODIUM 1,000 MG in DEXTROSE 5% 50 ML IV SCH (07:52)
[2021-03-06] MEDS: MULTIVITAMIN TAB PO SCH (07:53)
[2021-03-06] MEDS: SIMVASTATIN 10 MG TAB PO SCH (07:53)
[2021-03-06] MEDS: levETIRAcetam 500 MG TAB PO SCH ×2 (07:53→20:03)
[2021-03-06] MEDS: ASPIRIN 81 MG ECTAB PO SCH (07:53)
[2021-03-06] MEDS: FUROSEMIDE 10 MG in SYRINGE 0 ML IV SCH (07:55)
[2021-03-06] MEDS: CHOLECALCIFEROL 1,000 UNITS 25 MCG TAB PO SCH (07:56)
[2021-03-06] MEDS: METOPROLOL SUCC 25MG EXT REL TAB PO SCH (07:57)
[2021-03-06 09:23] LABS: Prothrombin Time 19.3 Seconds (9.0-12.0)
[2021-03-06 10:01] LABS: Albumin Level 2.9 gm/dl (3.4-5.0); BUN Creatinine Ratio 20.3 (10-20); Bilirubin,Total 2.5 mg/dl (0.2-1); Calcium 9.1 mg/dl (8.5-10.1); Est GFR (African American) 9.5; Est GFR (Non-African American) 8.2; Potassium 5.8 mmol/L (3.5-5.1); Total Protein 6.3 gm/dl (6.4-8.2)
--- NOTE | 2021-03-06 10:21 | Nephrology Progress Note ---
Date of Service March 06, 2021 Assessment & Plan (1) Acute on chronic renal insufficiency: prior baseline creatinine in early to mid 2019 had been 1.4, CKD 3B, eGFR mid 30s with about 300 mg proteinuria. most recent labs before this admission are 4/7 w/ 2.6 creatinine on presentation to OSH, 3.1 at d/c; up to 3.3 by presentation here and with abrupt uptick on 03/06 after ureteral stent on 03/05 to remove obstructing L stone. also now with severe transaminitis. LILIBETH likely multifactorial: cardiorenal syndrome is likeliest underalying culprit in renal progression; obstructive uropathy also with a role. even w/ transaminitis, doubt HRS. 600 mg proteinuria prior to abrupt creatinine worsenign 03/06. chemistries no longer acceptable >> she has hyperkalemia now and evidence of metabolic acidosis ->>>started bicarb gtt at 80 mL hourly stat ->>>increased lasix to 20 mg IV qid first dose now ->>>started renal diet >>>repeat BMP ordered for 1600 and will f/u >>stopped statin; agree w/ GI c/s for transaminitis -cont 1.5L FR and <2 gm daily Na diet; no renal diet needed yet -if no improvement will need to consider dialysis today or tomorrow ->>defer to primary service to dose meds appropriately for liver and renal failure -- gabby et al >>with her volume overload, strict I/O and daily standing wts important Care coordinated w/ Dr Devries and Dr Brasher (2) Acute on chronic systolic heart failure: longstanding dx more actively clinically since spring 2019. mild fluid overload w/ ascites, edema, pl effusion; minimal dyspnea -lasix as above -daily standing wts, low Na diet, FR -f/u cardiology recs (3) Kidney stone: obstructing L stone plus L staghorn calculus s/p 03/05 L ureteral stent; then later will need definitive therapy of staghorn at tertiary care center Admission and Anticipated Discharge Date Admission Date: March 04, 2021 Subjective feels very weak; no sob; remains on RA, poor po but no N; no flank pain; unchanged edema. Review of Systems Review of Systems: All systems reviewed & are unremarkable except as noted in Subjective Physical Exam Constitutional: well developed, well nourished, + frail appearing (very tired this am) and cooperative; no acute distress Eyes: EOM intact bilaterally ENMT: Ears: no external ear abnormality Nose: no external nose abnormality Mouth: + dry oral mucous membranes; no dentures Neck: no nuchal rigidity Respiratory: normal respiratory effort; no labored breathing Auscultation: lungs clear to auscultation bilaterally and + diminished lung sounds Cardiovascular: Rate/Rhythm: + irregularly irregular Extremities: + edema (2+ BLE distally, 1 + to hips; no sacral edema) Gastrointestinal (Abdomen): Inspection/Auscultation: normal bowel sounds Percussion/Palpation: abdomen soft; abdomen nontender Musculoskeletal: Extremities: strength 5/5 throughout Skin: no rashes, warm and dry + ecchymosis (scattered) Psychiatric: Orientation: oriented x 3 and cooperative Speech: normal rate /rhythm/volume of speech Affect: + flat affect Insight: good insight Judgement: good judgement Genitourinary: cruz w/ blood tinged urine Results & Data ([facility]) Vital Signs (Past 12 Hours) Vital Signs Temp Pulse Pulse Resp BP Pulse Ox 03/06/21 07:50 88 112/78 03/06/21 07:33 36.5 C 94 H 16 88/62 L 97 03/06/21 04:25 36.4 C L 106 H 16 91/70 L 97 03/05/21 23:21 36.4 C L 80 17 87/68 L 95 03/05/21 22:20 100 H Laboratory Results 03/05/21 05:21 03/06/21 08:33
--- NOTE | 2021-03-06 10:26 | Urology Progress Note ---
Date of Service March 06, 2021 Assessment & Plan (1) Calculus of proximal left ureter: (2) S/P ureteral stent placement: 80 yo F POD #1 s/p cystoscopy and left stent placement secondary to obstructing left proximal stone, left staghorn calculus and acute on chronic renal insufficiency. - Patient tolerating left ureteral stent with minimal bother - Afebrile, nontoxic. Labs reviewed - creatinine increased to 4.66 today, elevated potassium, transaminitis - Odell catheter intact, patent and draining clear light red urine, low urine output noted - Continue supportive care and management per primary team, nephrology and cardiology, and pending GI evaluation - She will need definitive stone treatment in the future likely in the form of a percutaneous nephrolithotomy at a tertiary center or ureteroscopy there due to her multiple comorbidities. - Will arrange follow-up with our service outpatient Thank you for allowing us to participate in the acute care of Ms. Sr. Please reconsult us with additional questions, concerns or changes in patient status. Admission and Anticipated Discharge Date Admission Date: March 04, 2021 Subjective 80 yo F POD #1 s/p cystoscopy and left stent placement. Patient awake and sitting up in bed Reports she feels slightly better than yesterday Denies flank or abdominal pain Odell intact, patent, draining light red urine Low urine output noted No nausea or vomiting No fever or chills Chart review: Afebrile Creatinine 4.66 Potassium 5.8 Transaminitis WBC 13.50 (03/05) BCx no growth x 48 hours UC&S no growth On IV Ceftriaxone VS - BP 112/78, HR 88, Resp 16, Temp 36.5, O2 97% on RA No additional concerns today. Review of Systems Constitutional: as per Subjective / HPI Gastrointestinal: as per Subjective / HPI Genitourinary: as per Subjective / HPI Physical Exam Constitutional: comfortable; no acute distress Neck: normal visual inspection Respiratory: normal respiratory effort and able to speak in complete sentences; no respiratory distress and no labored breathing Cardiovascular: +2 bilateral lower extremity edema pitting Gastrointestinal (Abdomen): Inspection/Auscultation: abdomen normal to inspection; abdomen not distended Musculoskeletal: Head/Neck/Chest: normocephalic and head atraumatic Skin: scattered ecchymosis Neurologic: moves all extremities and awake Psychiatric: Orientation: alert and oriented x 3 Genitourinary: Odell catheter intact, patent, draining clear light red urine, low output noted Results & Data ([facility]) Vital Signs (Past 12 Hours) Vital Signs Temp Pulse Resp BP Pulse Ox 03/06/21 07:50 88 112/78 03/06/21 07:33 36.5 C 94 H 16 88/62 L 97 03/06/21 04:25 36.4 C L 106 H 16 91/70 L 97 03/05/21 23:21 36.4 C L 80 17 87/68 L 95 PG Care Time/CCT Total # of Minutes Spent Total Time Spent with Patient: Total time spent is greater than 50% in coordination of care (as documented) at patient's floor/unit and/or counseling patient: Coding Level of Care Code 54138 Subseq Hosp Care Lvl 2 Diagnoses Calculus of proximal left ureter N20.1 S/P ureteral stent placement Z96.0
[2021-03-06] MEDS: SODIUM BICARBONATE 8.4% 150 MEQ in DEXTROSE 5% 1,000 ML IV SCH (11:46)
--- NOTE | 2021-03-06 12:15 | Gastrointestinal Consultation ---
Date of Consultation March 06, 2021 Assessment & Plan (1) Generalized weakness: (2) Calculus of proximal left ureter: (3) S/P ureteral stent placement: (4) Elevated LFTs: Pt is a 80 y/o female seen for acutely elevated LFTs. Hx of Afib s/p Watchmann device, CHF, LILIBETH 2/2 obstructive L ureteral calculus s/p stent placement yesterday. Unremarkable liver and no signs biliary ductal dilation on non contrasted CT scan but noted cholelithiasis was present. DDx for her LFTs: related to congestive hepatopathy, shock liver, DILI, biliary obstruction less likely. - Obtain MRCP to r/o biliary obstruction - Avoid hepatotoxic meds, consider changing antibx coverage - Trend LFTs - Cardiology and Nephrology following, appreciate recs Supervising Physician Co-Signing Physician Notes I performed a history and physical examination of the patient today, including specifically on physical exam - soft abdomen. I have discussed the patient's management with the advanced practitioner. Please refer to the nurse practitio cy's note for the documented findings and plan of care. Her LFTs are Likely related to congestive Hepatopathy. Obtain MRCP. Optimize her CHF. History of Present Illness Reason for Consultation: Elevated LFTs Requesting Physician: Dr. Jordan Devries Attending Physician: Dr. Addi Traylor History of Present Illness Pt is a 80 y/o female seen today for elevated LFTs. She presented w weakness. Her PMHx includes HLD, HTN, hypothyroidism, CKD III, Afib previously on Amiodarone and now Metoprolol, CHF, HF (EF 30-35%), s/p Watchmann device placement, hx of seizures on Keppra, hx of colon ca s/p partial colectomy. She was admitted at [facility] 1 week ago w UTI and LILIBETH. She was found here to have obstructing L ureteral stone s/p cystoscopy and stent placement on 03/05. Curren tly on Ceftriaxone IV. Noted LFTs normal at baseline, but acutely elevated today: Tbili 2.5, AST 1055, ALT 670, Alk phos 320. Normal Lipase. CT abd/pelvis wo contrast showed normal liver w/o intrahepatic ductal dilation, + cholelithiasis. On exam, she appears fatigued, no jaundice. She denies abd pain, n/v, admits to feel weak. Legs w +2 pitting edema. Allergies Allergy/AdvReac Type Severity Reaction Status Date / Time strawberry Allergy Unknown hives Unverified 03/04/21 00:06 Home Medications Medication Instructions Recorded Confirmed Type amiodarone 200 mg PO BID 03/03/21 03/04/21 History cholecalciferol (vitamin D3) 25 mcg PO DAILY 03/03/21 03/03/21 History [Vitamin D3] furosemide 40 mg PO UD 03/03/21 03/04/21 History levetiracetam 500 mg PO BID 03/03/21 03/04/21 History levothyroxine 75 mcg PO QAM 03/03/21 03/04/21 History metoprolol succinate 50 mg PO BID 03/03/21 03/04/21 History multivitamin 1 tab PO DAILY 03/03/21 03/04/21 History simvastatin 10 mg PO DAILY 03/03/21 03/04/21 History aspirin [Aspirin Low Dose] 81 mg PO QAM 03/04/21 03/04/21 History Patient History Medical History Atrial fibrillation s/p Watchman 01/2020 s/p cardioversion spring 2019, May 2020 Carotid stenosis, bilateral Chronic systolic heart failure EF 20-30% dx'd January 2020 CKD (chronic kidney disease) Stage 3B as of 05/2020 Colon cancer s/p surgery, XRT, CTX 2009 Hyperlipidemia Hypertension Staghorn calculus Surgical History Femur fracture, left s/p 2018 ORIF History of colectomy 2009 for colon CA R chad Presence of Watchman left atrial appendage closure device placed 01/2020 in [facility] Family History Sister Cancer Social History Smoking Status: Never smoker Hx Alcohol Use: No Hx Substance Use: No Preferred Language: Vietnamese Communication Ability: Effective Beliefs That Will Affect Care: None Current Living Situation: Family Feels Safe at Home: Yes Assistive Devices: Denture - Upper, Denture - Lower, Glasses and Walker Review of Systems Review of Systems: All systems reviewed & are unremarkable except as noted in HPI & below Physical Exam Constitutional: + frail appearing, well groomed, cooperative and comfortable Eyes: PERRL, conjunctivae normal, anicteric sclerae ENMT: external ear and nose normal, oropharynx normal Respiratory: no respiratory distress and does not use accessory muscles Auscultation: + diminished lung sounds Cardiovascular: Rate/Rhythm: regular rhythm Heart Sounds: + murmur Gastrointestinal (Abdomen): normal bowel sounds, soft, nontender, no hepatosplenomegaly Skin: no rashes, warm and dry no jaundice Neurologic: Motor/Sensory: no asterixis Psychiatric: A+Ox3, euthymic affect Lymphatic: +2 pitting edema bilateral LE Results & Data ([facility]) Vital Signs (Past 12 Hours) Vital Signs Temp Pulse Resp BP Pulse Ox 03/06/21 11:42 36.8 C 83 18 83/66 L 98 03/06/21 07:50 88 112/78 03/06/21 07:33 36.5 C 94 H 16 88/62 L 97 03/06/21 04:25 36.4 C L 106 H 16 91/70 L 97
--- NOTE | 2021-03-06 13:42 | Magnetic Resonance Report ---
MRCP CLINICAL HISTORY: Cholelithiasis. Generalized abdominal pain. COMPARISON STUDY: Abdominal CT dated 03/04/2021. TECHNIQUE: Abdominal MRCP is performed utilizing various T2-weighted sequences in the axial and coron al planes. IV contrast was not administered for this examination. The examination is significantly co mpromised by motion artifact. FINDINGS: The gallbladder is contracted and contains numerous gallstones. There is no intra- or extrahepatic bi liary ductal dilatation. The common bile duct is difficult to visualize and measures up to 2 mm. Ther e is no evidence of choledocholithiasis. The pancreatic duct is normal in caliber. The unenhanced liver, spleen, and adrenal glands are grossly normal. The kidneys are atrophic. A left ureteral stent is in place. There is mild left-sided hydronephrosis. A staghorn calculus is suggeste d in the left kidney and a large calculus is seen in the left proximal ureter. No hydronephrosis is s een on the right. Scattered subcentimeter cysts are noted in both kidneys. The abdominal aorta is nor mal in caliber. The pancreas is atrophic. There is a small volume of abdominal ascites. No bowel obst ruction is seen. Small duodenal diverticula are noted. There is no evidence of abdominal lymphadenopa thy. The heart is enlarged noting a small pericardial effusion. There are right larger than left pleural e ffusions. The bony structures are grossly intact. Degenerative change and scoliosis is seen in the th oracolumbar spine. There is body wall edema. IMPRESSION: 1. Significantly motion degraded examination. 2. Cholelithiasis without clear MRI evidence of acute cholecystitis. 3. There is no intra- or extrahepatic biliary ductal dilatation, and no choledocholithiasis. 4. Cardiomegaly and pleural effusions. 5. Small volume abdominal ascites. 6. A left ureteral stent is in place. Large calculi are suggested in the left renal pelvis and the le ft proximal ureter. Dictated: 03/06/2021 1:15 PM Transcribed: 03/06/2021 1:37 PM [place] [id number] [facility] Electronically signed by: Minh Leo M.D. 03/06/2021 1:40 PM
[2021-03-06] MEDS: FUROSEMIDE 20 MG in SYRINGE 0 ML IV SCH ×4 (13:49→19:27)
--- NOTE | 2021-03-06 17:28 | Hospitalist Progress Note ---
Date of Service March 06, 2021 Assessment & Plan (1) Acute on chronic systolic heart failure: Right heart failure Present on admission with b/l LE edema was recently admitted at [facility]/ [place] cardiology with underlying issues including longstanding cardiomyopathy, afib CXR showed cardiomegaly and radiographic evidence of mild distal failure/fluid overload. Small right pleural effusion. Currently on Lasix 20mg IV BID ECHO in this admission showed left ventricle is normal in size. Moderate concentric left ventricular hypertrophy. Septal motion is consistent with conduction abnormality. Moderate global hypokinesis of the left ventricle. Ejection fraction 35 to 40% Cardiology on board Has not been able to received any lasix due to Low BP case discussed with cardiology and agreed about trial of pressors and inotropic effect spoke to hat lining paster Dr. Landry and agreed to monitor her in the ICU Hypotension BP has been on the 80's systolic Will transfer to ICU to start on pressor Continue monitor BP Staghorn calculus Calculus of proximal left ureter CT abd/pelvis showed 3 cm staghorn left renal calculus. Obstructing 18 x 7 x 7 mm left UPJ calculus Urology on board S/P stent placement Left ureteral stent on 03/05 Will need percutaneous nephrolithotomy in the future at a tertiary center or ureteroscopy there due to her multiple comorbidities as per urology Will hold abx for now since urine and blood cx no growth Low urine output Continue monitor Afib Rate controlled with metoprolol Continue aspirin for now Acute on chronic renal insufficiency Baseline creatinine was 1.4 in 2019 Creatinine worsening 4.97 today Nephrology on board Discussed dialysis with patient, but pt declined any dialysis (son was notified and would discuss it with patient) Avoid nephrotoxic agents Continue monitor BMP Transaminitis Possible related to fluid overload vs medication Liver enzymes worsening with AST 1055, ALT [address] abd/pelvis showed unenhanced liver is normal in size, contour, and attenuation. There is no intrahepatic biliary ductal dilatation. MRCP showed o intra- or extrahepatic biliary ductal dilatation, and no choledocholithiasis. Gastro on board Rocephin discontinued and will hold statin Will avoid hepatotoxic agents Atrial fibrillation: S/P watchman procedure rate controlled Will hold tonight dose metoprolol Might consider anticoagulant Hyperkalemia Potassium dropped from 5.8 to 5.2 Continue monitor Hypothyroidism Elevated TSH possible related to acute illness Continue Levothyroxine Will need to repeat TSH in 4 weeks History of seizures Continue Keppra. History of colon cancer Status post partial removal of colon in 2013. Deep venous thrombosis prophylaxis Will add Heparin subQ. CODE STATUS FULL CODE Disposition Will transfer to ICU Later I spoke to patient about dialysis and code status after she spoke to her son over the phone She wants to be full code and wants to proceed with dialysis if kidney function continue to decline Admission and Anticipated Discharge Date Admission Date: March 04, 2021 Subjective Pt was seen and examined for follow up of volume overload Lying in bed feeling weak with poor energy She said that she is not having any pain Spoke to son today and son will discuss code status with her Denies any chest pain, palpitation, dizziness and SOB Review of Systems Review of Systems: All systems reviewed & are unremarkable except as noted in Subjective Physical Exam Physical Exam: General- No acute distress Head- atraumatic Eyes- PERRL, EOMI, ENT- oropharynx clear Neck- supple, no JVD Lungs- clear to auscultation Heart- irregular rhythm; Abdomen- normal bowel sounds, soft, nontender Extremities- no calf tenderness, +edema B/L Neuro- alert, oriented x 3; PERRL, EOMI; no facial palsy; no dysarthria Skin- warm & dry Results & Data Results & Data ([facility]) Vital Signs (Past 12 Hours) Vital Signs Temp Pulse Pulse Resp BP Pulse Ox 03/06/21 16:43 85/63 L 03/06/21 16:00 36.4 C L 84 18 84/61 L 91 03/06/21 15:29 90 03/06/21 13:47 88 104/69 03/06/21 12:14 79 90/61 L 03/06/21 11:42 36.8 C 83 18 83/66 L 98 03/06/21 07:50 88 112/78 03/06/21 07:33 36.5 C 94 H 16 88/62 L 97
--- NOTE | 2021-03-06 17:30 | Cardiology Progress Note ---
Date of Service March 06, 2021 Assessment & Plan (1) Acute on chronic systolic heart failure: Patient is a complex 80-year-old female as outlined previously followed at [facility]/ [place] cardiology with underlying issues including longstanding cardiomyopathy, paroxysmal question persistent atrial fibrillation with recent hospitalization with atrial fibrillation with rapid response. She remains in atrial fibrillation per review of records appears to be plans for long-term rate control. Underwent watchman procedure to mitigate use of anticoagulants in the past. Current complaining of edema with only mild volume overload on exam no signs of hypoxia or pulmonary edema. Heart rate relatively well controlled. Current course complicated by acute on chronic renal failure possibly secondary to obstructive uropathy\ Repeat echocardiogram performed 03/06/2021 demonstrates ejection fraction of 25 to 30% but notable further enlargement of the right ventricle and severe right ventricular dysfunction. There is severe tricuspid insufficiency correlating with patient's hepatic congestion and elevated hepatic enzyme Pulmonary hypertension noted on previous echo as per review of outpatient records. Have reached out to primary sports attorney but contact still pending Suspect a component of chronic right heart failure with mitral intracuspid insufficiency potentially recently worsened by relapse into atrial fibrillation. Thromboembolic disease not completely excluded Recommendations: Discussed with hospitalist and electric well logging operator. Agree with trial of pressors and inotropes. Will hold metoprolol dosing this evening if further rate controlled will use low-dose digoxin. Overall findings reflect right heart failure greater than left heart failure. Patient with component of preload dependence. Patient in no respiratory distress Would hold diuretics this evening Renal function concerning especially with patient's reluctance to consider dialysis. Consider anticoagulation (2) Atrial fibrillation: As above ultimately would like rate better controlled. Previously maintaining sinus rhythm with amiodarone though unlikely to return to sinus rhythm and maintain (3) Acute on chronic renal insufficiency: (4) Staghorn calculus: Admission and Anticipated Discharge Date Admission Date: March 04, 2021 Subjective Patient was seen and examined twice today. Continues to have marginal blood pressures laboratory studies reflect little change or improvement in renal function with dramatic increase in hepatic enzymes. Patient denies dizziness lightness chest pains. No fevers or chills. Physical Exam Constitutional: no acute distress Eyes: PERRL, conjunctivae normal, anicteric sclerae ENMT: external ear and nose normal, oropharynx normal Neck: trachea midline, no thyromegaly Respiratory: normal respiratory effort, lungs clear to auscultation Cardiovascular: Rate/Rhythm: + irregularly irregular Heart Sounds: normal S1 and normal S2; no gallop and no murmur Palpation: normal PMI Vessels: normal carotid upstroke and radial pulses present; no JVD and no carotid bruit Extremities: + edema (2-3+ bilateral lower extremity) Gastrointestinal (Abdomen): normal bowel sounds, soft, nontender, no hepatosplenomegaly Musculoskeletal: no cyanosis or clubbing, extremities motor strength 5/5 Skin: no rashes, warm and dry Neurologic: PERRL, EOMI, accommodation nl, no face palsy, no dysarthria Psychiatric: A+Ox3, euthymic affect Results & Data ([facility]) Vital Signs (Past 12 Hours) Vital Signs Temp Pulse Pulse Resp BP Pulse Ox 03/06/21 16:43 85/63 L 03/06/21 16:00 36.4 C L 84 18 84/61 L 91 03/06/21 15:29 90 03/06/21 13:47 88 104/69 03/06/21 12:14 79 90/61 L 03/06/21 11:42 36.8 C 83 18 83/66 L 98 03/06/21 07:50 88 112/78 03/06/21 07:33 36.5 C 94 H 16 88/62 L 97
[2021-03-06 17:49] LABS: BUN Creatinine Ratio 19.9 (10-20); Calcium 8.6 mg/dl (8.5-10.1); Creatinine Clr Calc Pharmacy 7.5 ml/min; Est GFR (African American) 8.7; Est GFR (Non-African American) 7.5; Potassium 5.2 mmol/L (3.5-5.1)
[2021-03-06 17:57] LABS: Hemoglobin 14.4 g/dL (12.0-16.0); Mean Corpuscular Hemoglobin 30.1 pg (25-34); Mean Corpuscular Hgb Conc 33.5 g/dL (32-36); Nucleated RBC # (auto) 0.19 K/uL (0-0); Nucleated RBC % (auto) 1.2 %; Platelet Count 160 K/uL (130-400); RDW Coefficient of Variation 17.6 % (11.5-14.5); RDW Standard Deviation 55.9 fL (36.4-46.3); Red Blood Count 4.78 M/uL (4.2-5.4); White Blood Count 16.53 K/uL (4.8-10.8)
[2021-03-06] MEDS ORDERED: STAT IV Infusion **Titration per Protocol STA ×2 (18:03→21:32)
[2021-03-06] MEDS ORDERED: DOBUTamine / D5W 500mg/250mL Premixed Bag IV PRN (18:30)
[2021-03-06] MEDS ORDERED: PHYTONADIONE 5 MG in SODIUM CHLORIDE 0.9% 50 ML IV ONE (19:15)
--- NOTE | 2021-03-06 19:56 | Critical Care Consultation ---
Date of Consultation March 06, 2021 Assessment & Plan (1) Admitted to intensive care unit: Reason Critically Ill: 80-year-old female initially admitted for obstructive ureteral stone s/p stent. Now presents to the ICU with acute renal failure, acute on chronic heart failure requiring dobutamine and vasopressors, and acute liver failure. Neuro - [facility]: Negative History seizure disorder: Continue Keppra Cardiac - Acute on chronic left and right heart failurerepeat TTE 03/06 demonstrates EF 25 to 30%, notable further enlargement of the right ventricle and severe RV dysfunction, and severe tricuspid regurg -Bilateral lower extremity edema present on admission, normally follows with cardiology at [facility] -Patient transferred to ICU and started on inotrope/vasopressors. CVC inserted shortly after arrival -Cardiology following appreciate recommendations -We will proceed with diuresis now that hemodynamics improved with pressors -Continuous monitoring on telemetry A. fibs/p watchman device placement -Currently rate controlled, holding MTP for hypotension -We will start digoxin if needed for rate control Respiratory - No history of pulmonary disease, currently maintaining oxygen saturation on 2 L nasal cannula -Lungs clear to auscultation on exam, no issues with pulmonary congestion yet. May attempt BiPAP if becomes issue. -Attempting diuresis with 20 IV Lasix Q6h -Continuous monitoring pulse ox GI - Acute liver failurepatient with worsening transaminitis, elevated INR 2.0, total bili 2.5 -MRCP: Cholelithiasis without clear evidence of acute cholecystitis, no hepatic biliary ductal dilation and no choledocholithiasis. Grossly normal liver noted -Calculated meld of 33, 52% 3-month mortality -GI following, spoke with Dr. Wilkes regarding potential transfer for liver service. Unfortunately, patient unlikely candidate for transplant due to age/comorbidities. -Starting on N-acetylcysteine drip -Acetaminophen level negative -Hepatic panel pending to rule out viral etiology -Follow-up ammonia level - congestive hepatopathy, shock liver? -Levo and dobutamine started, will attempt to keep systolic greater than 100 -We will avoid nephrotoxins, holding ceftriaxone -Trend hepatic function RENAL/LYTES - Acute renal failurepatient presenting with worsening creatinine 4.97 and BUN 99, with hyperkalemia and elevated anion gap -Nephrology following, patient started on bicarb drip, 20 mg IV Lasix every 6 hours -Continue with medical management overnight and trend BMP, treat electrolytes as indicated -We will treat underlying heart failure with dobutamine and levo -Family agreeable to dialysis if needed - Left ureteral calculus, obstructives/p ureteral stent 03/05 -Patient may need percutaneous procedure later at tertiary center -Urology following -Foleystrict I's and O's ENDO - No history of diabetes, ICU hyperglycemic protocol Hypothyroidcontinue Synthroid HEME - H&H stable, monitor routine CBCs Elevated INRlikely secondary to liver failure, given 5 IV vitamin K -DIC labs pending -No evidence of bleeding, hold heparin for now. Trend coags ID - UTI?No fevers, mild leukocytosis remains stable -Blood and urine cultures negative to date -Mild lactic acidosis is most likely ischemic in etiology due to heart failure -We will hold ceftriaxone for now LINES/IV ACCESS - Right IJ CVC 03/06, PIV x2 DVT PROPHYLAXIS - SCDs, holding heparin for elevated INR CODE STATUS: Did readdress CODE STATUS with patient and family present. At this time they would like the patient to remain full code and proceed with aggressive management. On exam the patient does not appear or feel as ill as labs would normally indicate. We will get palliative on board as her prognosis remains guarded. I have personally spent 65 minutes of critical care time in the direct management of this patient. This is a life/limb threatening event. This includes time spent evaluating patient, direct bedside care, chart review, placing orders, interpretation of diagnostic studies, discussion with consultants, patient, and family members, as well as other required patient management activities. This time is exclusive of all separately billable procedures, and teaching time and separate from and in addition to any other critical care service time. Thank you for allowing us to participate in the care of this patient. Please refer to my attending physician's documentation for any further recommendations. (2) Elevated LFTs: (3) S/P ureteral stent placement: (4) Calculus of proximal left ureter: (5) Acute on chronic systolic heart failure: (6) Chronic systolic heart failure: (7) Atrial fibrillation: (8) Staghorn calculus: (9) Acute UTI: (10) Acute on chronic renal insufficiency: (11) Generalized weakness: (12) Gallstones: (13) Acute on chronic renal failure: (14) Acute liver failure: (15) Right heart failure: History of Present Illness Attending Physician: Jordan Devries MD History of Present Illness Patient is an 80-year-old female with PMH of CKD stage III, A. fib, heart failure with preserved EF, HLD, HTN, cholelithiasis, seizures. She was recently seen at [facility] and treated for UTI. She presented to the emergency room on 03/04 with complaints of generalized weakness and increased leg swelling and was noted to have worsening renal function. CT abdomen revealed 3 cm staghorn left renal obstructing calculus. She was taken by urology for cystoscopy with stent placement on 03/05. Unfortunately, this morning's labs indicated worsening renal and hepatic function, and repeat TTE showed LV EF 25 to 30% with RV failure and severe tricuspid regurg. Patient was transferred to the ICU for trial of dobutamine/vasopressors. She is currently on bicarb, dobutamine, and Levophed drips. Urology, nephrology, GI, and cardiology following. Patient was agreeable to dialysis if no improvement in renal function. Currently patient is alert and oriented and appears comfortable. She states that lower extremity edema appears improved from admission 2 days ago. She denies any pain, syncope or dizziness, headaches, sore throat or respiratory illness, shortness of breath, chest pain or palpitations, abdominal pain, nausea or vomiting. She does state that she feels urgency to urinate, however she does have a Odell catheter placed. She denies any leg pain or numbness or tingling in the lower extremities. Did speak with Dr. Wilkes with GI concerning patient's liver function. Per our conversation, patient would be unlikely candidate for liver transplant due to age and comorbidities. We will follow up pending labs, and treat underlying cause. Patient to remain in ICU for further management at this time. Allergies Allergy/AdvReac Type Severity Reaction Status Date / Time strawberry Allergy Unknown hives Unverified 03/04/21 00:06 Home Medications Medication Instructions Recorded Confirmed Type amiodarone 200 mg PO BID 03/03/21 03/04/21 History cholecalciferol (vitamin D3) 25 mcg PO DAILY 03/03/21 03/03/21 History [Vitamin D3] furosemide 40 mg PO UD 03/03/21 03/04/21 History levetiracetam 500 mg PO BID 03/03/21 03/04/21 History levothyroxine 75 mcg PO QAM 03/03/21 03/04/21 History metoprolol succinate 50 mg PO BID 03/03/21 03/04/21 History multivitamin 1 tab PO DAILY 03/03/21 03/04/21 History simvastatin 10 mg PO DAILY 03/03/21 03/04/21 History aspirin [Aspirin Low Dose] 81 mg PO QAM 03/04/21 03/04/21 History Patient History Medical History Atrial fibrillation s/p Watchman 01/2020 s/p cardioversion springMay 2020 Carotid stenosis, bilateral Chronic systolic heart failure EF 20-30% dx'd January 2020 CKD (chronic kidney disease) Stage 3B as of 05/2020 Colon cancer s/p surgery, XRT, CTX 2009 Hyperlipidemia Hypertension Staghorn calculus Surgical History Femur fracture, left s/p 2018 ORIF History of colectomy 2009 for colon CA R chad Presence of Watchman left atrial appendage closure device placed 01/2020 in [facility] Family History Sister Cancer Social History Smoking Status: Never smoker Hx Alcohol Use: No Hx Substance Use: No Preferred Language: Frisian Communication Ability: Effective Beliefs That Will Affect Care: None Current Living Situation: Family Feels Safe at Home: Yes Assistive Devices: Glasses Review of Systems Review of Systems: All systems reviewed & are unremarkable except as noted in HPI & below Physical Exam Constitutional: cooperative and comfortable; no acute distress Eyes: PERRL, conjunctivae normal, anicteric sclerae ENMT: external ear and nose normal, oropharynx normal Neck: trachea midline, no thyromegaly Respiratory: normal respiratory effort, lungs clear to auscultation no labored breathing and no cough Auscultation: no crackles and no wheezes Cardiovascular: Rate/Rhythm: + irregularly irregular; not tachycardic Vessels: + JVD Extremities: + edema (+3 bilateral lower extremity pitting edema) Gastrointestinal (Abdomen): normal bowel sounds, soft, nontender, no hepatosplenomegaly Inspection/Auscultation: abdomen not distended Skin: no rashes, warm and dry Neurologic: PERRL, EOMI, accommodation nl, no face palsy, no dysarthria Psychiatric: A+Ox3, euthymic affect Genitourinary: Indwelling Odell catheter Results & Data Results & Data ([facility]) Vital Signs (Past 12 Hours) Vital Signs Temp Pulse Pulse Resp BP Pulse Ox 03/06/21 18:01 93/65 L 03/06/21 16:43 85/63 L 03/06/21 16:00 36.4 C L 84 18 84/61 L 91 03/06/21 15:29 90 03/06/21 13:47 88 104/69 03/06/21 12:14 79 90/61 L 03/06/21 11:42 36.8 C 83 18 83/66 L 98 Coding Level of Care Code Critical Care 1st 30-74 mins Diagnoses Admitted to intensive care unit Z78.9 Elevated LFTs R79.89 S/P ureteral stent placement Z96.0 Calculus of proximal left ureter N20.1 Acute on chronic systolic heart failure I50.23 Chronic systolic heart failure I50.22 Atrial fibrillation I48.91 Staghorn calculus N20.0 Acute UTI N39.0 Acute on chronic renal insufficiency N28.9; N18.9 Generalized weakness R53.1 Gallstones K80.20 Acute on chronic renal failure N17.9; N18.9 Acute liver failure K72.00 Right heart failure I50.810
[2021-03-06 20:10] LABS: Fibrinogen 234 mg/dl (184-400)
[2021-03-06 20:32] LABS: D Dimer 16080 ug/L FEU (0-500)
[2021-03-06] MEDS ORDERED: HEPARIN SOD 5,000 UNIT/0.5 ML VIAL SQ SCH (21:00)
--- NOTE | 2021-03-06 21:16 | Communication Note ---
Date of Service: March 06, 2021 Critical care addendum: 80 yo F transferred to MICU for starting inotropes as patient kidney function is deteriorating with thought process being Cardio-renal as her EF is 20-25%. On the labs patient is also found to be having elevated liver enzymes in the 1000's with coagulopathy and decreasing platelets. Patient denies any tylenol use. I doubt this elevation is all from cardio-hepatic congestion as patient presented to the ED with elevated enzymes and her BP was not low. Patient did get antibiotics which could be one of the inciting factors. Looking at elevated LDH, D Dimer, normal fibrinogen it seems patient is going into Acute liver failure. Etiology of which is currently unknown As patient is fluid overloaded and with Low EF. I will start the patient on PO NAC 140mg/kg loading dose followed by 70mg/kg PO q4hrs for total of 17 doses. GI will be called and informed regarding the findings as patient might need to be transferred to a liver center. F/u ammonia level as well as Hepatitis profile. Coding Level of Care Code Critical Care georgie addt'l 30 min Time Spent (min) 15
[2021-03-06 21:40] LABS: INR 1.9 (0.9-1.1); Partial Thromboplastin Ratio 1.4; Partial Thromboplastin Time 36.2 Seconds (21.0-31.0); Prothrombin Time 18.6 Seconds (9.0-12.0)
[2021-03-06] MEDS ORDERED: DEXTROSE 5% IV ONE ×2 (22:00→23:00)
[2021-03-06] MEDS ORDERED: ACETYLCYSTEINE IV ONE ×2 (22:00→23:00)
[2021-03-06] MEDS: NOREPINEPHRINE/D5W 8 MG/508 ML BAG IV SCH (22:18)
--- NOTE | 2021-03-06 22:22 | Procedure Note ---
Procedure Note Date of Service March 06, 2021 Note INTERNAL JUGULAR CENTRAL LINE PROCEDURE NOTE: Procedure: Internal Jugular Central Line Placement Attending: Dr. Landry Provider: MUNDO Arango Indication: Central Drug Administration, Poor Venous Access, Multiple Lab Draws Necessary, etc. Anesthesia: Lidocaine 1% Line placed emergently as patient hypotensive with multisystem organ failure and now requiring vasopressors A time-out was completed verifying correct patient, procedure, site, positioning, and implants(s) or special equipment if applicable. Patients right neck was cleansed and draped in the typical sterile fashion using Chloraprep. The Internal Jugular Vein and Carotid Artery were identified using ultrasound. The superficial tissue was anesthetized using 3 mL of 1% lidocaine without epinephrine under direct visualization with the ultrasound. After adequate anesthetization was achieved, the Internal Jugular vein was cannulated under direct ultrasound guidance using an introducer needle on a syringe. Good venous blood return was maintained prior to removal of syringe from introducer needle. Using Seldinger Technique, a guide wire was advanced through the introducer needle without resistance. The introducer needle was removed and ultrasound images were obtained of the guide wire within the Internal Jugular Vein and saved to the patients medical record. A small incision was made in penetrating fashion at the guide wire insertion site utilizing an 11 blade scalpel. The dilator was advanced to the vessel without resistance. The dilator was exchanged for the triple lumen catheter which was advanced into the vessel without resistance. The guide wire was removed intact from the catheter without issue. Claves were placed on each catheter tip with confirmation of good blood flow from each lumen. Each port was easily flushed with sterile saline. The catheter was placed at 16 cm and sutured in place. BioPatch was applied to the catheter and a sterile Tegaderm dressing was applied over the catheter with careful attention to sterility. Patient tolerated procedure well. No immediate complications were met. Post procedure x-ray was completed, placement was appropriate and no pneumothorax was noted. Images obtained are saved for permanent record Procedural Ultrasound Guidance: Procedure Date: 03/06/2021 Indication: Central venous catheter insertion Attending: Dr. Landry Provider: MUNDO Arango Artery AND Vein visualized: Yes Compressible Vein: Yes Guidewire or Short Catheter seen in vein prior to dilation: Yes Line confirmed in Vein with ultrasound: Yes Images obtained are saved for permanent record. Coding CPT Codes Tubes, Drains, and Vasc Access - Tubes, Drains, and Vasc Access: [id number] Place catheter in vein superior or inferior vena cava ([id number]) Tubes, Drains, and Vasc Access - Tubes, Drains, and Vasc Access: [id number] Ultrasound Guidance For Vascular ([id number]) [facility] Procedure Codes (Charges) Tubes, Drains, and Vasc Access Procedure 1: Tubes, Drains, and Vasc Access: [id number] Place catheter in vein superior or inferior vena cava Procedure 2: Tubes, Drains, and Vasc Access: [id number] Ultrasound Guidance For Vascular
[2021-03-06 22:37] LABS: Basophils # (auto) 0.01 K/uL (0-0.2); Basophils % (auto) 0.1 %; Eosinophils # (auto) 0.06 K/uL (0-0.5); Eosinophils % (auto) 0.5 %; Hematocrit (blood only) 36.1 % (37-47); Hemoglobin 11.9 g/dL (12.0-16.0); Immature Granulocytes # (auto) 0.06 K/uL (0.00-0.02); Immature Granulocytes % (auto) 0.5 %; Lymphocytes # (auto) 1.04 K/uL (1.2-3.4); Lymphocytes % (auto) 8.4 %; Mean Corpuscular Hemoglobin 29.7 pg (25-34); Mean Platelet Volume 10.5 fL (7.4-10.4); Monocytes # (auto) 0.93 K/uL (0.11-0.59); Monocytes % (auto) 7.5 %; Neutrophils # (auto) 10.25 K/uL (1.4-6.5); Nucleated RBC # (auto) 0.07 K/uL (0-0); Nucleated RBC % (auto) 0.5 %; Platelet Count 132 K/uL (130-400); RDW Coefficient of Variation 17.3 % (11.5-14.5); RDW Standard Deviation 55.7 fL (36.4-46.3); Red Blood Count 4.01 M/uL (4.2-5.4); White Blood Count 12.35 K/uL (4.8-10.8)
[2021-03-06 23:07] LABS: Albumin Level 2.3 gm/dl (3.4-5.0); BUN Creatinine Ratio 19.9 (10-20); Bilirubin,Total 0.8 mg/dl (0.2-1); Calcium 7.9 mg/dl (8.5-10.1); Creatinine Clr Calc Pharmacy 7.5 ml/min; Est GFR (African American) 8.7; Est GFR (Non-African American) 7.5; Magnesium 2.6 mg/dl (1.8-2.4); Phosphorus 6.9 mg/dl (2.5-4.9); Total Protein 5.1 gm/dl (6.4-8.2)
[2021-03-06 23:08] LABS: Potassium 4.3 mmol/L (3.5-5.1)
[2021-03-06 23:10] LABS: Bilirubin Direct 0.4 mg/dl (0-0.2)
[2021-03-06 23:33] LABS: Hepatitis B Surf Ag Rflx Conf Neg (Neg)
[2021-03-07 00:02] LABS: Hepatitis C IgG 13Yrs+Old_Rflx Neg (Neg)
[2021-03-07] MEDS ORDERED: DEXTROSE 5% IV ONE (03:00)
[2021-03-07] MEDS ORDERED: ACETYLCYSTEINE IV ONE (03:00)
[2021-03-07] MEDS: SODIUM BICARBONATE 8.4% 150 MEQ in DEXTROSE 5% 1,000 ML IV SCH (04:35)
[2021-03-07 04:57] LABS: Basophils # (auto) 0.01 K/uL (0-0.2); Basophils % (auto) 0.1 %; Eosinophils # (auto) 0.07 K/uL (0-0.5); Eosinophils % (auto) 0.5 %; Hematocrit (blood only) 36.7 % (37-47); Hemoglobin 12.2 g/dL (12.0-16.0); Immature Granulocytes # (auto) 0.04 K/uL (0.00-0.02); Immature Granulocytes % (auto) 0.3 %; Lymphocytes % (auto) 5.2 %; Mean Corpuscular Hemoglobin 29.6 pg (25-34); Mean Corpuscular Hgb Conc 33.2 g/dL (32-36); Mean Corpuscular Volume 89.1 fL (80-100); Mean Platelet Volume 10.3 fL (7.4-10.4); Monocytes # (auto) 1.12 K/uL (0.11-0.59); Monocytes % (auto) 8.3 %; Neutrophils # (auto) 11.59 K/uL (1.4-6.5); Neutrophils % (auto) 85.6 %; Nucleated RBC # (auto) 0.07 K/uL (0-0); Nucleated RBC % (auto) 0.6 %; Platelet Count 127 K/uL (130-400); RDW Coefficient of Variation 17.3 % (11.5-14.5); RDW Standard Deviation 55.5 fL (36.4-46.3); Red Blood Count 4.12 M/uL (4.2-5.4); White Blood Count 13.53 K/uL (4.8-10.8)
[2021-03-07 05:02] LABS: Mixed Venous Blood Gas Base Excess 1.4 mEq/L (-7.7-1.9); Mixed Venous Blood Gas O2 Sat 72.7 % (68); Mixed Venous Blood Gas pH 7.39 (7.35-7.45)
[2021-03-07 05:13] LABS: INR 1.9 (0.9-1.1); Partial Thromboplastin Ratio 1.3; Partial Thromboplastin Time 35.2 Seconds (21.0-31.0); Prothrombin Time 18.2 Seconds (9.0-12.0)
[2021-03-07 05:26] LABS: Albumin Globulin Ratio 0.6 (0.9-2); BUN Creatinine Ratio 21.1 (10-20); Bilirubin Direct 0.4 mg/dl (0-0.2); Bilirubin,Total 0.8 mg/dl (0.2-1); Calcium 7.3 mg/dl (8.5-10.1); Creatinine Clr Calc Pharmacy 8.1 ml/min; Est GFR (African American) 9.6; Est GFR (Non-African American) 8.2; Globulin 3.3 gm/dl (2.5-4.0); Magnesium 2.5 mg/dl (1.8-2.4); Phosphorus 6.2 mg/dl (2.5-4.9); Total Protein 5.3 gm/dl (6.4-8.2)
[2021-03-07] MEDS: LEVOTHYROXINE SODIUM 75 MCG TABLET PO SCH (05:37)
[2021-03-07] MEDS ORDERED: cefTRIAXone SODIUM 1,000 MG in DEXTROSE 5% 50 ML IV SCH ×2 (07:00→12:00)
--- NOTE | 2021-03-07 07:01 | XRay Report ---
XR chest 1V portable CLINICAL HISTORY: Chest x-ray for central line placement. COMPARISON STUDY: 03/03/2021 FINDINGS: The heart is enlarged. There has been interval placement of a right internal jugular centra l venous catheter. The tip projects over the distal margin the superior vena cava. There is no pneumo thorax. There is a suspected small right pleural effusion. There are basilar opacities likely atelect atic. There is radiographic evidence of mild congestive failure/fluid overload.[ IMPRESSION: Interval placement of a right internal jugular central venous catheter. The tip projects over the distal margin of the superior vena cava. There is no pneumothorax ACT 112: Negative or not required by law. Electronically signed by: Wyatt Batista M.D. 03/07/2021 7:00 AM
[2021-03-07] MEDS ORDERED: STAT IV Infusion **Titration per Protocol STA (07:10)
--- NOTE | 2021-03-07 08:37 | Nephrology Progress Note ---
Date of Service March 07, 2021 Assessment & Plan (1) Acute on chronic renal insufficiency: prior baseline creatinine in early to mid 2019 had been 1.4, CKD 3B, eGFR mid 30s with about 300 mg proteinuria. No interval labs until 02/19 w/ 2.6 creatinine on presentation to OSH, 3.1 at d/c; up to 3.3 by presentation here and with abrupt uptick on 03/06 after ureteral stent on 03/05 to remove obstru cting L stone. plateau'd at high 4's-5 since 03/06. also now with severe but slightly improved transaminitis and coagulopathy/DIC (?presume from the liver). LILIBETH likely multifactorial: cardiorenal syndrome is likeliest underalying culprit in renal progression; obstructive uropathy also with a more acute role. even w/ transaminitis, doubt HRS. 600 mg proteinuria prior to abrupt creatinine worsenign 03/06. chemistries have improved >> interval resolution since yesterday of hyperkalemia and metabolic acidosis >monitor chemistries at least bid ->recommend lasix increae to 20 mg IV qid hold for sbp <90 and aim for even to slightly negative fluid balance today >>>repeat BMP ordered for 1500 and will f/u >> some improvement in creatinine and bun; other chemistries ok >> continued FR 1.5 L and changed from renal to low Na diet >f/u transaminitis w/u -would observe for now and may need to consider dialysis this evening/tomorrow; consent on chart ->>>lowered keppra to daily dose 500 mg IV; pt follows w/ neuro for seizure disorder; last seizure 2007; this dose is renally adjusted; no liver adjustment needed >>with her volume overload, strict I/O and daily standing wts important (2) Acute on chronic systolic heart failure: longstanding dx more actively clinically since spring 2019. mild fluid overload w/ ascites, edema, pl effusion; minimal dyspnea -lasix as above -daily standing wts, low Na diet, FR -f/u cardiology recs (3) Kidney stone: obstructing L stone plus L staghorn calculus s/p 03/05 L ureteral stent; then later will need definitive therapy of staghorn at tertiary care center Admission and Anticipated Discharge Date Admission Date: March 04, 2021 Subjective moved to unit yesterday d/t ongoing hypotension, worsening multiorgan failure. with DIC now. open to dialysis if needed after d/w family. SBP maintained in 100s on dobutamine and norepi. no pain, no distress; still quite tired but less than yesterday; no n or sob Review of Systems Review of Systems: All systems reviewed & are unremarkable except as noted in Subjective Physical Exam Constitutional: well developed, well nourished, + frail appearing (less tired this am) and cooperative; no acute distress Eyes: EOM intact bilaterally ENMT: Ears: no external ear abnormality Nose: no external nose abnormality Mouth: + dry oral mucous membranes; no dentures Neck: no nuchal rigidity Respiratory: normal respiratory effort; no labored breathing Auscultation: lungs clear to auscultation bilaterally and + diminished lung sounds Cardiovascular: Rate/Rhythm: + irregularly irregular Extremities: + edema ( 1 + to hips less at feet w/ mild foot elevation; no sacral edema) Gastrointestinal (Abdomen): Inspection/Auscultation: normal bowel sounds Percussion/Palpation: abdomen soft; abdomen nontender Musculoskeletal: Extremities: strength 5/5 throughout Skin: no rashes, warm and dry + ecchymosis (scattered) Psychiatric: Orientation: oriented x 3 and cooperative Speech: normal rate/rhythm/volume of speech Affect: + flat affect Insight: good insight Judgement: good judgement Genitourinary: cruz w/ countersinker balance screw hole yellow urine; urine from ON was browner Results & Data ([facility]) Vital Signs (Past 12 Hours) Vital Signs Temp Pulse Resp BP Pulse Ox 03/07/21 06:00 83 15 105/67 97 03/07/21 05:46 83 17 98 03/07/21 05:45 88 15 126/62 99 03/07/21 05:31 82 14 99 03/07/21 05:30 85 15 97/69 L 99 03/07/21 05:16 87 15 99 03/07/21 05:15 88 15 117/60 98 03/07/21 05:01 78 15 98 03/07/21 05:00 82 15 113/64 98 03/07/21 04:46 84 17 98 03/07/21 04:45 83 19 122/61 96 03/07/21 04:31 87 19 98 03/07/21 04:30 83 16 107/74 98 03/07/21 04:16 89 20 98 03/07/21 04:15 85 16 114/75 96 03/07/21 04:01 88 16 97 03/07/21 04:00 83 18 112/74 98 03/07/21 03:46 95 H 16 94 03/07/21 03:45 90 15 108/68 92 03/07/21 03:31 85 19 92 03/07/21 03:30 85 17 99/51 L 92 03/07/21 03:24 81 19 92/53 L 94 03/07/21 03:22 86 18 85 L 03/07/21 03:16 87 14 92 03/07/21 03:15 80 13 85/63 L 92 03/07/21 03:01 82 16 95 03/07/21 03:00 80 15 95/57 L 93 03/07/21 02:46 84 14 94 03/07/21 02:45 82 14 86/61 L 94 03/07/21 02:31 79 14 100 03/07/21 02:30 78 14 103/55 L 100 03/07/21 02:16 83 14 100 03/07/21 02:15 82 15 125/60 100 03/07/21 02:01 89 16 100 03/07/21 02:00 82 14 109/51 L 100 03/07/21 01:46 81 15 95/64 L 100 03/07/21 01:45 86 15 99 03/07/21 01:30 82 16 101/65 99 03/07/21 01:16 82 22 100 03/07/21 01:15 79 18 108/66 100 03/07/21 01:00 77 15 105/58 L 100 03/07/21 00:46 85 15 100 03/07/21 00:45 82 16 108/80 100 03/07/21 00:30 84 16 109/60 95 03/07/21 00:16 85 18 99 03/07/21 00:15 83 16 112/59 L 99 03/07/21 00:01 81 17 100 03/07/21 00:00 84 16 101/78 99 03/06/21 23:57 86 03/06/21 23:52 36.4 C L 03/06/21 23:46 79 21 100 03/06/21 23:45 83 18 107/63 96 03/06/21 23:31 79 16 99 03/06/21 23:30 88 15 110/90 100 03/06/21 23:16 78 16 99 03/06/21 23:15 84 16 108/70 99 03/06/21 23:01 78 15 99 03/06/21 23:00 84 24 91/61 L 93 03/06/21 22:46 87 20 93 03/06/21 22:45 75 18 108/65 93 03/06/21 22:31 81 19 100 03/06/21 22:30 78 17 101/62 100 03/06/21 22:16 84 18 98 03/06/21 22:15 81 25 H 87/67 L 98 03/06/21 22:01 86 21 96 03/06/21 22:00 90 21 99/59 L 97 03/06/21 21:46 73 22 99 03/06/21 21:45 77 21 83/53 L 98 03/06/21 21:31 79 17 97 03/06/21 21:30 76 16 82/46 L 97 03/06/21 21:16 84 20 99 03/06/21 21:15 83 18 84/54 L 98 03/06/21 21:01 93 H 16 97 03/06/21 21:00 77 15 82/62 L 99 03/06/21 20:46 83 21 97 03/06/21 20:45 75 20 90/57 L 93 03/06/21 20:31 78 20 90 03/06/21 20:30 81 20 83/50 L 91 Laboratory Results 03/07/21 04:49 03/07/21 04:49 FDP, LDH markedly elevated Transaminases in 400s
[2021-03-07] MEDS ORDERED: PHYTONADIONE 5 MG in SODIUM CHLORIDE 0.9% 50 ML IV ONE (08:45)
[2021-03-07] MEDS: CHOLECALCIFEROL 1,000 UNITS 25 MCG TAB PO SCH (09:30)
[2021-03-07] MEDS: ASPIRIN 81 MG ECTAB PO SCH (09:30)
[2021-03-07] MEDS: MULTIVITAMIN TAB PO SCH (09:30)
[2021-03-07] MEDS: FUROSEMIDE 20 MG in SYRINGE 0 ML IV SCH ×5 (09:33→21:07)
--- NOTE | 2021-03-07 09:42 | Palliative Care Consultation ---
Date of Consultation March 07, 2021 Assessment & Plan (1) Palliative care encounter: I talked with Fern about her understanding of what was happening to her at this time. She appears to understand her multiorgan failure and fragile prognosis. I asked her how she felt about this. Her response was "I want to get better". I asked her what that would mean to her and better would mean being able to get home and get around and do some things for herself. She told me that she would want us to do whatever treatment that we could to accomplish this. I asked if there were any limitations to the care that she would want and she said that she couldn't think of anything at this time. We discussed the possibility that we may not be able to help her recover to the point of going home with her prior functional status. She acknowledged this. She is agreeable to ongoing discussion as her condition evolves. I spoke with her son, Noel, by phone. He tells me that the family would want full care for her as well. We talked more specifically about the code status and his understanding. He said that they talked with the facility maintenance helper about this last night and they do want full resuscitation. I told him what Fern said about getting better and suggested that we continue to touch base to make sure that we are staying on a plan of care that matches her wishes. He is agreeable to this. (2) Acute on chronic renal failure: (3) Encounter for pre-operative examination: (4) Acute on chronic systolic heart failure: (5) Acute liver failure: (6) Atrial fibrillation: History of Present Illness Reason for Consultation: goals of care Requesting Physician: MUNDO Arango Attending Physician: Jordan Devries MD History of Present Illness Delightful 80 yo lady with history of CKD3, afib with Watchman device, and HFpEF. She was admitted with weakness and increased lower extremity edema. She was found to have a 3cm renal calculus with acute on chronic renal failure. Creatinine yesterday was 4.97 with BUN of 99, though there is a slight decrease to 4.6 today. Unfortunately she has developed multiorgan failure with new echo showing EF of 25-30%. She is on pressors and diuretics for volume overload. She has elevated liver enzymes and no evidence of obstruction on MRCP and normal appearance of liver. She is currently a full code and her family has indicated that they would want full treatment for her care. We have been consulted to assist with goals of care. At the time of visit, Fern is sleeping but easily arousable. She tells me that she had a good sleep and that she is comfortable. She is able to tell me that her kidneys, heart and liver are not working well and asked about her blood pressure and medications. Allergies Allergy/AdvReac Type Severity Reaction Status Date / Time strawberry Allergy Unknown hives Unverified 03/04/21 00:06 Home Medications Medication Instructions Recorded Confirmed Type amiodarone 200 mg PO BID 03/03/21 03/04/21 History cholecalciferol (vitamin D3) 25 mcg PO DAILY 03/03/21 03/03/21 History [Vitamin D3] furosemide 40 mg PO UD 03/03/21 03/04/21 History levetiracetam 500 mg PO BID 03/03/21 03/04/21 History levothyroxine 75 mcg PO QAM 03/03/21 03/04/21 History metoprolol succinate 50 mg PO BID 03/03/21 03/04/21 History multivitamin 1 tab PO DAILY 03/03/21 03/04/21 History simvastatin 10 mg PO DAILY 03/03/21 03/04/21 History aspirin [Aspirin Low Dose] 81 mg PO QAM 03/04/21 03/04/21 History Patient History Medical History Atrial fibrillation s/p Watchman 01/2020 s/p cardioversion spring 2019, May 2020 Carotid stenosis, bilateral Chronic systolic heart failure EF 20-30% dx'd January 2020 CKD (chronic kidney disease) Stage 3B as of 05/2020 Colon cancer s/p surgery, XRT, CTX 2009 Hyperlipidemia Hypertension Staghorn calculus Surgical History Femur fracture, left s/p 2018 ORIF History of colectomy 2009 for colon CA R chad Presence of Watchman left atrial appendage closure device placed 01/2020 in [facility] Family History Sister Cancer Social History Smoking Status: Never smoker Hx Alcohol Use: No Hx Substance Use: No Preferred Language: Peruvian Communication Ability: Effective Beliefs That Will Affect Care: None Current Living Situation: Family Feels Safe at Home: Yes Assistive Devices: Glasses Review of Systems Review of Systems: [place] Symptom Assessment Scale Pain 0/3 Nausea 0/3 Anxiety 0/3 Fatigue 2/3 Dyspnea 0/3 Drowsiness 1/3 Palliative Performance Score 30% Per Fern, she ambulates independently with a walker or cane at home. She is independent for ADLs. Physical Exam Constitutional: + frail appearing; no acute distress Eyes: EOM intact bilaterally ENMT: Mouth: oral mucous membranes not dry Respiratory: normal respiratory effort; no labored breathing Cardiovascular: Rate/Rhythm: + irregularly irregular Extremities: + edema Gastrointestinal (Abdomen): Inspection/Auscultation: abdomen not distended Musculoskeletal: Extremities: + muscle atrophy Skin: warm and dry Neurologic: awake; not confused Results & Data ([facility]) Vital Signs (Past 12 Hours) Vital Signs Temp Pulse Resp BP Pulse Ox 03/07/21 06:00 83 15 105/67 97 03/07/21 05:46 83 17 98 03/07/21 05:45 88 15 126/62 99 03/07/21 05:31 82 14 99 03/07/21 05:30 85 15 97/69 L 99 03/07/21 05:16 87 15 99 03/07/21 05:15 88 15 117/60 98 03/07/21 05:01 78 15 98 03/07/21 05:00 82 15 113/64 98 03/07/21 04:46 84 17 98 03/07/21 04:45 83 19 122/61 96 03/07/21 04:31 87 19 98 03/07/21 04:30 83 16 107/74 98 03/07/21 04:16 89 20 98 03/07/21 04:15 85 16 114/75 96 03/07/21 04:01 88 16 97 03/07/21 04:00 83 18 112/74 98 03/07/21 03:46 95 H 16 94 03/07/21 03:45 90 15 108/68 92 03/07/21 03:31 85 19 92 03/07/21 03:30 85 17 99/51 L 92 03/07/21 03:24 81 19 92/53 L 94 03/07/21 03:22 86 18 85 L 03/07/21 03:16 87 14 92 03/07/21 03:15 80 13 85/63 L 92 03/07/21 03:01 82 16 95 03/07/21 03:00 80 15 95/57 L 93 03/07/21 02:46 84 14 94 03/07/21 02:45 82 14 86/61 L 94 03/07/21 02:31 79 14 100 03/07/21 02:30 78 14 103/55 L 100 03/07/21 02:16 83 14 100 03/07/21 02:15 82 15 125/60 100 03/07/21 02:01 89 16 100 03/07/21 02:00 82 14 109/51 L 100 03/07/21 01:46 81 15 95/64 L 100 03/07/21 01:45 86 15 99 03/07/21 01:30 82 16 101/65 99 03/07/21 01:16 82 22 100 03/07/21 01:15 79 18 108/66 100 03/07/21 01:00 77 15 105/58 L 100 03/07/21 00:46 85 15 100 03/07/21 00:45 82 16 108/80 100 03/07/21 00:30 84 16 109/60 95 03/07/21 00:16 85 18 99 03/07/21 00:15 83 16 112/59 L 99 03/07/21 00:01 81 17 100 03/07/21 00:00 84 16 101/78 99 03/06/21 23:57 86 03/06/21 23:52 97.5 F L 03/06/21 23:46 79 21 100 03/06/21 23:45 83 18 107/63 96 03/06/21 23:31 79 16 99 03/06/21 23:30 88 15 110/90 100 03/06/21 23:16 78 16 99 03/06/21 23:15 84 16 108/70 99 03/06/21 23:01 78 15 99 03/06/21 23:00 84 24 91/61 L 93 03/06/21 22:46 87 20 93 03/06/21 22:45 75 18 108/65 93 04/22/21 22:31 81 19 100 03/06/21 22:30 78 17 101/62 100 03/06/21 22:16 84 18 98 03/06/21 22:15 81 25 H 87/67 L 98 03/06/21 22:01 86 21 96 03/06/21 22:00 90 21 99/59 L 97 03/06/21 21:46 73 22 99 03/06/21 21:45 77 21 83/53 L 98 PG Care Time/CCT Total # of Minutes Spent Total Time Spent with Patient: Total time spent is greater than 50% in coordination of care (as documented) at patient's floor/unit and/or counseling patient: total time spent 70 minutes with more than 50% of time spent on goals of care, code status, patient and family education and support Coding Level of Care Code 85349 Inpt Consult Level 4 Diagnoses Palliative care encounter Z51.5 Acute on chronic renal failure N17.9; N18.9 Encounter for pre-operative examination Z01.818 Acute on chronic systolic heart failure I50.23 Acute liver failure K72.00 Atrial fibrillation I48.91
[2021-03-07 09:51] LABS: BUN Creatinine Ratio 20.2 (10-20); Calcium 8.1 mg/dl (8.5-10.1); Est GFR (African American) 9.5; Est GFR (Non-African American) 8.2; Potassium 3.8 mmol/L (3.5-5.1)
--- NOTE | 2021-03-07 10:24 | Gastroenterology Progress Note ---
Date of Service March 07, 2021 Assessment & Plan (1) Generalized weakness: (2) Calculus of proximal left ureter: (3) S/P ureteral stent placement: (4) Elevated LFTs: Pt is a 80 y/o female seen for acutely elevated LFTs. Hx of Afib s/p Watchmann device, CHF, LILIBETH 2/2 obstructive L ureteral calculus s/p stent placement yesterday. Unremarkable liver and no signs biliary ductal dilation on non contrasted CT scan but noted cholelithiasis was present. DDx for her LFTs: related to congestive hepatopathy, shock liver, DILI, biliary obstruction less likely. She was transferred to ICU overnight to receive pressors. LFTs trending down - Obtain MRCP to r/o biliary obstruction -> negative - Avoid hepatotoxic meds, consider changing antibx coverage - Trend LFTs - Cardiology and Nephrology following, appreciate recs - GI to sign off; pls recall prn Admission and Anticipated Discharge Date Admission Date: March 04, 2021 Supervising Physician Co-Signing Physician Notes I have discussed the patient's management with the advanced practitioner. Please refer to the nurse practitioner's note for the documented findings and plan of care. LFTs improved, INR stable. Recall Gi if needed. Subjective Pt transferred to ICU overnight for pressors initiation. She is sleeping in bed, hard to arouse. Review of Systems Review of Systems: Unobtainable due to reduced consciousness Physical Exam Constitutional: + frail appearing, well groomed, cooperative and comfortable Eyes: PERRL, conjunctivae normal, anicteric sclerae ENMT: external ear and nose normal, oropharynx normal Respiratory: no respiratory distress and does not use accessory muscles Auscultation: + diminished lung sounds Cardiovascular: Rate/Rhythm: regular rhythm Heart Sounds: + murmur Gastrointestinal (Abdomen): normal bowel sounds, soft, nontender, no hepatosplenomegaly Skin: no rashes, warm and dry no jaundice Psychiatric: A+Ox3, euthymic affect Results & Data ([facility]) Vital Signs (Past 12 Hours) Vital Signs Temp Pulse Resp BP Pulse Ox 03/07/21 06:00 83 15 105/67 97 03/07/21 05:46 83 17 98 03/07/21 05:45 88 15 126/62 99 03/07/21 05:31 82 14 99 03/07/21 05:30 85 15 97/69 L 99 04/23/21 05:16 87 15 99 03/07/21 05:15 88 15 117/60 98 03/07/21 05:01 78 15 98 03/07/21 05:00 82 15 113/64 98 03/07/21 04:46 84 17 98 03/07/21 04:45 83 19 122/61 96 03/07/21 04:31 87 19 98 03/07/21 04:30 83 16 107/74 98 03/07/21 04:16 89 20 98 03/07/21 04:15 85 16 114/75 96 03/07/21 04:01 88 16 97 03/07/21 04:00 83 18 112/74 98 03/07/21 03:46 95 H 16 94 03/07/21 03:45 90 15 108/68 92 03/07/21 03:31 85 19 92 03/07/21 03:30 85 17 99/51 L 92 03/07/21 03:24 81 19 92/53 L 94 03/07/21 03:22 86 18 85 L 03/07/21 03:16 87 14 92 03/07/21 03:15 80 13 85/63 L 92 03/07/21 03:01 82 16 95 03/07/21 03:00 80 15 95/57 L 93 03/07/21 02:46 84 14 94 03/07/21 02:45 82 14 86/61 L 94 03/07/21 02:31 79 14 100 03/07/21 02:30 78 14 103/55 L 100 03/07/21 02:16 83 14 100 03/07/21 02:15 82 15 125/60 100 03/07/21 02:01 89 16 100 03/07/21 02:00 82 14 109/51 L 100 03/07/21 01:46 81 15 95/64 L 100 03/07/21 01:45 86 15 99 03/07/21 01:30 82 16 101/65 99 03/07/21 01:16 82 22 100 03/07/21 01:15 79 18 108/66 100 03/07/21 01:00 77 15 105/58 L 100 03/07/21 00:46 85 15 100 03/07/21 00:45 82 16 108/80 100 03/07/21 00:30 84 16 109/60 95 03/07/21 00:16 85 18 99 03/07/21 00:15 83 16 112/59 L 99 03/07/21 00:01 81 17 100 03/07/21 00:00 84 16 101/78 99 03/06/21 23:57 86 03/06/21 23:52 36.4 C L 03/06/21 23:46 79 21 100 03/06/21 23:45 83 18 107/63 96 03/06/21 23:31 79 16 99 03/06/21 23:30 88 15 110/90 100 03/06/21 23:16 78 16 99 03/06/21 23:15 84 16 108/70 99 03/06/21 23:01 78 15 99 03/06/21 23:00 84 24 91/61 L 93 03/06/21 22:46 87 20 93 03/06/21 22:45 75 18 108/65 93 03/06/21 22:31 81 19 100 03/06/21 22:30 78 17 101/62 100
--- NOTE | 2021-03-07 12:01 | Critical Care Progress Note ---
Date of Service March 07, 2021 Assessment & Plan (1) Admitted to intensive care unit: Reason Critically Ill: 80-year-old female initially admitted for obstructive ureteral stone s/p stent. Now presents to the ICU with acute renal failure, acute on chronic heart failure requiring dobutamine and vasopressors, and acute liver failure. --Acute renal failure Patient has baseline CKD Etiology is likely cardiorenal Continue with dobutamine for inotrope support along with Levophed Keep MAP greater than 65 and SBP greater than 90-95 Avoid nephrotoxic medication Monitor urine output. Continue with diuretics No emergent indication for dialysis. Patient will not be a good candidate for dialysis given the multiple comorbidities that she has. Nephrology on board --Acute liver failure with coagulopathy and thrombocytopenia MELD 33, 52% 3-month mortality Elevated LDH, D-dimer, normal fibrinogen Tylenol level negative Patient did get loading dose of N-acetylcysteine Hepatitis B antigen and hep C antibody negative Possibilities for acute liver failure includes but not limited to medication (DILI), hypotension/shock liver as well as hepatic congestion from CHF (low in differential) Amiodarone and statin have been stopped. AST/ALT trending down Continue to monitor GI on board, as per them there is no need for transfer given the patient's age. -- HAGMA Likely sec to elevated BUN Monitor --Systolic CHF EF 25% Continue with diuretics and inotropes for the time being BiPAP nightly and as needed shortness of breath Cardiology on board --Pulmonary hypertension Likely type II Strict in and out Plan as above --History of A. fib S/p watchman device basement Rate controlled --History of obstructive left-sided kidney staghorn calculus S/p stent placement 03/05 Urine culture not growing anything --Hypothyroidism Continue with levothyroxine --History of hypertension Hold blood pressure medication --History of seizures On Keppra Renally adjusted dose --Prophylaxis VTE: IPC's GI: None Lines: Right IJ Diet: Clear liquid given the patient is on pressors and dobutamine Plan: In/out: +1716, urine output 771 Bicarb drip has been discontinued. Try to titrate down Levophed, continue with dobutamine at 5 keeping SBP greater than 90 and MAP greater than 65 Keep close eye on urine output. Continue with Lasix for the time being. We will cut down diuretics based on urine output. Because of pulmonary hypertension patient is also preload dependent. Patient is making urine. Monitor his output. Currently patient is full code and wants to continue and pursue dialysis if need be. LFTs are trending down. Patient still coagulopathic and thrombocytopenic. Meld score being 33 is not a good prognosis. Ammonia level was high. We will start the patient on lactulose. I did start the patient on NAC but given it is a lot of IV fluids I held it. We will try to transition to p.o based on repeat labs later in the afternoon. Given the pulmonary hypertension and decreased ejection fraction, hepatic failure I do not think patient will be a good candidate for dialysis. This was relayed to the patient. Case was discussed with Dr. Brasher I have personally spent 40 minutes of critical care time in the direct management of this patient. This is a life/limb threatening event. This includes time spent evaluating patient, direct bedside care, chart review, placing orders, interpretation of diagnostic studies, discussion with consultants, patient, and family members, as well as other required patient management activities. This time is exclusive of all separately billable procedures, and teaching time and separate from and in addition to any other critical care service time. Please note the above document was generated using voice recognition software. It may contain grammatical, syntax or spelling errors. (2) Elevated LFTs: (3) S/P ureteral stent placement: (4) Calculus of proximal left ureter: (5) Acute on chronic systolic heart failure: (6) Chronic systolic heart failure: (7) Atrial fibrillation: (8) Staghorn calculus: (9) Acute UTI: (10) Acute on chronic renal insufficiency: (11) Generalized weakness: (12) Gallstones: (13) Acute on chronic renal failure: (14) Acute liver failure: (15) Right heart failure: Admission and Anticipated Discharge Date Admission Date: March 04, 2021 Subjective Patient seen and examined at bedside. No acute distress, no adverse events overnight. Patient was on dobutamine 5 and Levophed 0.08 at the time of examination her map was in the 80s. She denies any shortness of breath. Neck denies any chest pain. No headache, no dizziness. No nausea or vomiting. Review of Systems Review of Systems: All systems reviewed & are unremarkable except as noted in Subjective Physical Exam Physical Exam: Constitutional: No acute distress, frail-appearing HEENT: EOMI, PERRLA Respiratory system: Decreased air entry bilaterally, no wheeze, no rhonchi, positive crackles bilaterally CVS: S1-S2 positive, no murmurs or gallops, distant heart sounds Abdomen: Soft, nontender, nondistended, positive bowel sounds x4 Extremities: +2 pulses bilaterally radialis/ dorsalis pedis, no cyanosis, +3 pitting edema bilateral lower extremity Neuro: Awake alert oriented x3 Psych: Normal mood and affect G/U: Positive [place] Skin: no rashes, warm and dry Lymphatic: no cervical or axillary lymphadenopathy Results & Data Results & Data ([facility]) Vital Signs (Past 12 Hours) Vital Signs Pulse Resp BP Pulse Ox 03/07/21 06:00 83 15 105/67 97 03/07/21 05:46 83 17 98 03/07/21 05:45 88 15 126/62 99 03/07/21 05:31 82 14 99 03/07/21 05:30 85 15 97/69 L 99 03/07/21 05:16 87 15 99 03/07/21 05:15 88 15 117/60 98 03/07/21 05:01 78 15 98 03/07/21 05:00 82 15 113/64 98 03/07/21 04:46 84 17 98 03/07/21 04:45 83 19 122/61 96 03/07/21 04:31 87 19 98 03/07/21 04:30 83 16 107/74 98 03/07/21 04:16 89 20 98 03/07/21 04:15 85 16 114/75 96 03/07/21 04:01 88 16 97 03/07/21 04:00 83 18 112/74 98 03/07/21 03:46 95 H 16 94 03/07/21 03:45 90 15 108/68 92 03/07/21 03:31 85 19 92 03/07/21 03:30 85 17 99/51 L 92 03/07/21 03:24 81 19 92/53 L 94 03/07/21 03:22 86 18 85 L 03/07/21 03:16 87 14 92 03/07/21 03:15 80 13 85/63 L 92 03/07/21 03:01 82 16 95 03/07/21 03:00 80 15 95/57 L 93 03/07/21 02:46 84 14 94 03/07/21 02:45 82 14 86/61 L 94 03/07/21 02:31 79 14 100 03/07/21 02:30 78 14 103/55 L 100 03/07/21 02:16 83 14 100 03/07/21 02:15 82 15 125/60 100 03/07/21 02:01 89 16 100 03/07/21 02:00 82 14 109/51 L 100 03/07/21 01:46 81 15 95/64 L 100 03/07/21 01:45 86 15 99 03/07/21 01:30 82 16 101/65 99 03/07/21 01:16 82 22 100 03/07/21 01:15 79 18 108/66 100 03/07/21 01:00 77 15 105/58 L 100 03/07/21 00:46 85 15 100 03/07/21 00:45 82 16 108/80 100 03/07/21 00:30 84 16 109/60 95 03/07/21 00:16 85 18 99 03/07/21 00:15 83 16 112/59 L 99 03/07/21 00:01 81 17 100 03/07/21 00:00 84 16 101/78 99 03/06/21 23:57 86 03/07/21 04:49 03/07/21 09:05 Coding Level of Care Code Critical Care 1st 30-74 mins Diagnoses Admitted to intensive care unit Z78.9 Elevated LFTs R79.89 S/P ureteral stent placement Z96.0 Calculus of proximal left ureter N20.1 Acute on chronic systolic heart failure I50.23 Chronic systolic heart failure I50.22 Atrial fibrillation I48.91 Staghorn calculus N20.0 Acute UTI N39.0 Acute on chronic renal insufficiency N28.9; N18.9 Generalized weakness R53.1 Gallstones K80.20 Acute on chronic renal failure N17.9; N18.9 Acute liver failure K72.00 Right heart failure I50.810 Time Spent (min) 40
[2021-03-07] MEDS: LACTULOSE SYRUP 20 GM/30 ML UDC PO SCH ×2 (13:01→21:05)
--- NOTE | 2021-03-07 14:08 | Cardiology Progress Note ---
Date of Service March 07, 2021 Assessment & Plan (1) Acute on chronic systolic heart failure: Patient is a complex 80-year-old female as outlined previously followed at [facility]/ [place] cardiology with underlying issues including longstanding cardiomyopathy, paroxysmal question persistent atrial fibrillation with recent hospitalization with atrial fibrillation with rapid response. She remains in atrial fibrillation per review of records appears to be plans for long-term rate control. Underwent watchman procedure to mitigate use of anticoagulants in the past. Current complaining of edema with only mild volume overload on exam no signs of hypoxia or pulmonary edema. Heart rate relatively well controlled. Current course complicated by acute on chronic renal failure possibly secondary to obstructive uropathy\ Repeat echocardiogram performed 03/06/2021 demonstrates ejection fraction of 25 to 30% but notable further enlargement of the right ventricle and severe right ventricular dysfunction. There is severe tricuspid insufficiency correlating with patient's hepatic congestion and elevated hepatic enzyme Pulmonary hypertension noted on previous echo as per review of outpatient records. Have reached out to primary yarding and folding machine operator but contact still pending Suspect a component of chronic right heart failure with mitral intracuspid insufficiency potentially recently worsened by relapse into atrial fibrillation. Thromboembolic disease not completely excluded Recommendations: Appreciate wireless field technician and pricing director management. Patient appears hemodynamically stable with pressors in place hopefully augmenting RV function and potential renal perfusion. Would continue diuretics in order to maintain renal function. Will still be preload dependent. Ultimately would hope that renal function would recover enough to initiate further spontaneous diuresis. Overall suspect patient would have difficulty tolerating dialysis given shemodynamic (2) Atrial fibrillation: (3) Acute on chronic renal insufficiency: (4) Staghorn calculus: Admission and Anticipated Discharge Date Admission Date: March 04, 2021 Subjective Patient seen and examined, chart, medications, telemetry reviewed Patient comfortable this morning. Was transferred to the intensive care unit setting last evening to allow IV pressors and inotropes. Blood pressures are improved with some urinary output Leg edema less pronounced per patient. No chest pains or discomfort. Physical Exam Constitutional: no acute distress Eyes: PERRL, conjunctivae normal, anicteric sclerae ENMT: external ear and nose normal, oropharynx normal Neck: trachea midline, no thyromegaly Respiratory: normal respiratory effort, lungs clear to auscultation Cardiovascular: Rate/Rhythm: + irregularly irregular Heart Sounds: normal S1 and normal S2; no gallop and no murmur Palpation: normal PMI Vessels: normal carotid upstroke and radial pulses present; no JVD and no carotid bruit Extremities: + edema (2+ bilateral lower extremity) Gastrointestinal (Abdomen): normal bowel sounds, soft, nontender, no hepatosplenomegaly Musculoskeletal: no cyanosis or clubbing, extremities motor strength 5/5 Skin: no rashes, warm and dry Neurologic: PERRL, EOMI, accommodation nl, no face palsy, no dysarthria Psychiatric: A+Ox3, euthymic affect Results & Data ([facility]) Vital Signs (Past 12 Hours) Vital Signs Pulse Resp BP Pulse Ox 03/07/21 13:40 83 03/07/21 13:00 97 H 22 97/64 L 95 03/07/21 12:31 105 H 21 108/62 96 03/07/21 11:45 100 H 18 107/66 98 03/07/21 11:30 99 H 17 102/61 98 03/07/21 11:15 90 18 105/63 97 03/07/21 11:00 93 H 15 114/66 97 03/07/21 10:45 101 H 19 108/59 L 95 03/07/21 10:30 97 H 15 109/59 L 96 03/07/21 10:15 98 H 26 H 120/66 96 03/07/21 10:00 91 H 15 110/77 98 03/07/21 09:45 94 H 25 H 105/63 98 03/07/21 09:30 98 H 21 143/61 H 98 03/07/21 09:15 92 H 20 123/103 H 98 03/07/21 09:00 87 19 116/60 97 03/07/21 08:45 89 15 111/75 100 03/07/21 08:30 91 H 15 105/80 100 03/07/21 08:15 90 14 112/64 99 03/07/21 08:00 86 14 115/65 99 03/07/21 07:45 81 19 105/60 99 03/07/21 07:30 88 15 111/88 03/07/21 07:15 87 14 121/71 99 03/07/21 07:00 85 22 105/56 L 98 03/07/21 06:45 80 15 112/74 100 03/07/21 06:00 83 15 105/67 97 03/07/21 05:46 83 17 98 04/23/21 05:45 88 15 126/62 99 03/07/21 05:31 82 14 99 03/07/21 05:30 85 15 97/69 L 99 03/07/21 05:16 87 15 99 03/07/21 05:15 88 15 117/60 98 03/07/21 05:01 78 15 98 03/07/21 05:00 82 15 113/64 98 03/07/21 04:46 84 17 98 03/07/21 04:45 83 19 122/61 96 03/07/21 04:31 87 19 98 03/07/21 04:30 83 16 107/74 98 03/07/21 04:16 89 20 98 03/07/21 04:15 85 16 114/75 96 03/07/21 04:01 88 16 97 03/07/21 04:00 83 18 112/74 98 03/07/21 03:46 95 H 16 94 03/07/21 03:45 90 15 108/68 92 03/07/21 03:31 85 19 92 03/07/21 03:30 85 17 99/51 L 92 03/07/21 03:24 81 19 92/53 L 94 03/07/21 03:22 86 18 85 L 03/07/21 03:16 87 14 92 03/07/21 03:15 80 13 85/63 L 92 03/07/21 03:01 82 16 95 03/07/21 03:00 80 15 95/57 L 93 03/07/21 02:46 84 14 94 03/07/21 02:45 82 14 86/61 L 94 03/07/21 02:31 79 14 100 03/07/21 02:30 78 14 103/55 L 100 03/07/21 02:16 83 14 100 03/07/21 02:15 82 15 125/60 100 Laboratory Results Laboratory Results - last 24 hr 03/06/21 03/06/21 03/06/21 16:52 17:02 18:35 WBC 16.53 H RBC 4.78 Hgb 14.4 Hct 43.0 MCV 90.0 MCH 30.1 MCHC 33.5 RDW Std Deviation 55.9 H RDW Coeff of Lawrence 17.6 H Plt Count 160 MPV 11.0 H Immature Gran % (Auto) Neut % (Auto) Lymph % (Auto) [place] % (Auto) Eos % (Auto) Baso % (Auto) Neut # (Auto) Lymph # (Auto) [place] # (Auto) Eos # (Auto) Baso # (Auto) Immature Gran # (Auto) Absolute Nucleated RBC 0.19 H Nucleated RBC % (auto) 1.2 Haptoglobin PT INR APTT PTT Ratio Fibrinogen Fibrin Degrad Products D-Dimer Factor VIII Activity Mixed VBG pH Mixed VBG pCO2 Mixed VBG pO2 Mixed VBG HCO3 Mixed VBG Base Excess Mixed VBG O2 Saturation Barometric Pressure Sodium 131 L Potassium 5.2 H Chloride 100 Carbon Dioxide 19 L Anion Gap 13.0 H BUN 99 H Creatinine 4.97 H* D Est Cr Clr Drug Dosing 7.5 Est GFR ( Amer) 8.7 Est GFR (Non-Af Amer) 7.5 BUN/Creatinine Ratio 19.9 Glucose 112 H Lactate Calcium 8.6 Phosphorus Magnesium Total Bilirubin Direct Bilirubin GGT AST ALT Alkaline Phosphatase Ammonia Lactate Dehydrogenase Total Protein Albumin Globulin Albumin/Globulin Ratio Nasal Screen MRSA (PCR) Negative Acetaminophen Hepatitis A IgM Ab Hep Bs Antigen Hep B Core IgM Ab Hepatitis C Antibody 03/06/21 03/06/21 03/06/21 19:19 19:19 19:19 WBC RBC Hgb Hct MCV MCH MCHC RDW Std Deviation RDW Coeff of [place] Plt Count MPV Immature Gran % (Auto) Neut % (Auto) Lymph % (Auto) [place] % (Auto) Eos % (Auto) Baso % (Auto) Neut # (Auto) Lymph # (Auto) [place] # (Auto) Eos # (Auto) Baso # (Auto) Immature Gran # (Auto) Absolute Nucleated RBC Nucleated RBC % (auto) Haptoglobin PT INR APTT PTT Ratio Fibrinogen 234 Fibrin Degrad Products >40 H D-Dimer 60479 H* Factor VIII Activity Mixed VBG pH Mixed VBG pCO2 Mixed VBG pO2 Mixed VBG HCO3 Mixed VBG Base Excess Mixed VBG O2 Saturation Barometric Pressure Sodium Potassium Chloride Carbon Dioxide Anion Gap BUN Creatinine Est Cr Clr Drug Dosing Est GFR ( Amer) Est GFR (Non-Af Amer) BUN/Creatinine Ratio Glucose Lactate 2.8 H* Calcium Phosphorus Magnesium Total Bilirubin Direct Bilirubin GGT AST ALT Alkaline Phosphatase Ammonia Lactate Dehydrogenase Total Protein Albumin Globulin Albumin/Globulin Ratio Nasal Screen MRSA (PCR) Acetaminophen Hepatitis A IgM Ab Hep Bs Antigen Hep B Core IgM Ab Hepatitis C Antibody 03/06/21 03/06/21 03/06/21 19:19 19:19 19:19 WBC RBC Hgb Hct MCV MCH MCHC RDW Std Deviation RDW Coeff of [place] Plt Count MPV Immature Gran % (Auto) Neut % (Auto) Lymph % (Auto) [place] % (Auto) Eos % (Auto) Baso % (Auto) Neut # (Auto) Lymph # (Auto) [place] # (Auto) Eos # (Auto) Baso # (Auto) Immature Gran # (Auto) Absolute Nucleated RBC Nucleated RBC % (auto) Haptoglobin Cancelled PT INR APTT PTT Ratio Fibrinogen Fibrin Degrad Products D-Dimer Factor VIII Activity Pending Mixed VBG pH Mixed VBG pCO2 Mixed VBG pO2 Mixed VBG HCO3 Mixed VBG Base Excess Mixed VBG O2 Saturation Barometric Pressure Sodium Potassium Chloride Carbon Dioxide Anion Gap BUN Creatinine Est Cr Clr Drug Dosing Est GFR ( Amer) Est GFR (Non-Af Amer) BUN/Creatinine Ratio Glucose Lactate Calcium Phosphorus Magnesium Total Bilirubin Direct Bilirubin GGT AST ALT Alkaline Phosphatase Ammonia Lactate Dehydrogenase 556 H Total Protein Albumin Globulin Albumin/Globulin Ratio Nasal Screen MRSA (PCR) Acetaminophen Hepatitis A IgM Ab Hep Bs Antigen Hep B Core IgM Ab Hepatitis C Antibody 03/06/21 03/06/21 03/06/21 19:19 19:19 19:19 WBC RBC Hgb Hct MCV MCH MCHC RDW Std Deviation RDW Coeff of Lawrence Plt Count MPV Immature Gran % (Auto) Neut % (Auto) Lymph % (Auto) [place] % (Auto) Eos % (Auto) Baso % (Auto) Neut # (Auto) Lymph # (Auto) [place] # (Auto) Eos # (Auto) Baso # (Auto) Immature Gran # (Auto) Absolute Nucleated RBC Nucleated RBC % (auto) Haptoglobin Pending PT 18.6 H INR 1.9 H APTT 36.2 H PTT Ratio 1.4 Fibrinogen Fibrin Degrad Products D-Dimer Factor VIII Activity Mixed VBG pH Mixed VBG pCO2 Mixed VBG pO2 Mixed VBG HCO3 Mixed VBG Base Excess Mixed VBG O2 Saturation Barometric Pressure Sodium Potassium Chloride Carbon Dioxide Anion Gap BUN Creatinine Est Cr Clr Drug Dosing Est GFR ( Amer) Est GFR (Non-Af Amer) BUN/Creatinine Ratio Glucose Lactate Calcium Phosphorus Magnesium Total Bilirubin Direct Bilirubin GGT AST ALT Alkaline Phosphatase Ammonia Lactate Dehydrogenase Total Protein Albumin Globulin Albumin/Globulin Ratio Nasal Screen MRSA (PCR) Acetaminophen < 2 L Hepatitis A IgM Ab Pending Hep Bs Antigen Hep B Core IgM Ab Pending Hepatitis C Antibody 03/06/21 03/06/21 03/06/21 22:23 22:23 22:23 WBC 12.35 H RBC 4.01 L Hgb 11.9 L Hct 36.1 L MCV 90.0 MCH 29.7 MCHC 33.0 RDW Std Deviation 55.7 H RDW Coeff of Lawrence 17.3 H Plt Count 132 MPV 10.5 H Immature Gran % (Auto) 0.5 Neut % (Auto) 83.0 Lymph % (Auto) 8.4 [place] % (Auto) 7.5 Eos % (Auto) 0.5 Baso % (Auto) 0.1 Neut # (Auto) 10.25 H Lymph # (Auto) 1.04 L [place] # (Auto) 0.93 H Eos # (Auto) 0.06 Baso # (Auto) 0.01 Immature Gran # (Auto) 0.06 H Absolute Nucleated RBC 0.07 H Nucleated RBC % (auto) 0.5 Haptoglobin PT INR APTT PTT Ratio Fibrinogen Fibrin Degrad Products D-Dimer Factor VIII Activity Mixed VBG pH Mixed VBG pCO2 Mixed VBG pO2 Mixed VBG HCO3 Mixed VBG Base Excess Mixed VBG O2 Saturation Barometric Pressure Sodium 134 L Potassium 4.3 D Chloride 99 Carbon Dioxide 25 Anion Gap 10.0 BUN 99 H Creatinine 4.97 H* Est Cr Clr Drug Dosing 7.5 Est GFR ( Amer) 8.7 Est GFR (Non-Af Amer) 7.5 BUN/Creatinine Ratio 19.9 Glucose 154 H Lactate 1.6 Calcium 7.9 L Phosphorus 6.9 H Magnesium 2.6 H Total Bilirubin 0.8 D Direct Bilirubin 0.4 H D GGT AST 629 H ALT 622 H Alkaline Phosphatase 268 H Ammonia Lactate Dehydrogenase Total Protein 5.1 L Albumin 2.3 L Globulin Albumin/Globulin Ratio Nasal Screen MRSA (PCR) Acetaminophen Hepatitis A IgM Ab Hep Bs Antigen Hep B Core IgM Ab Hepatitis C Antibody 03/06/21 03/06/21 03/07/21 22:23 22:23 01:14 WBC RBC Hgb Hct MCV MCH MCHC RDW Std Deviation RDW Coeff of Lawrence Plt Count MPV Immature Gran % (Auto) Neut % (Auto) Lymph % (Auto) [place] % (Auto) Eos % (Auto) Baso % (Auto) Neut # (Auto) Lymph # (Auto) [place] # (Auto) Eos # (Auto) Baso # (Auto) Immature Gran # (Auto) Absolute Nucleated RBC Nucleated RBC % (auto) Haptoglobin PT INR APTT PTT Ratio Fibrinogen Fibrin Degrad Products D-Dimer Factor VIII Activity Mixed VBG pH Mixed VBG pCO2 Mixed VBG pO2 Mixed VBG HCO3 Mixed VBG Base Excess Mixed VBG O2 Saturation Barometric Pressure Sodium Potassium Chloride Carbon Dioxide Anion Gap BUN Creatinine Est Cr Clr Drug Dosing Est GFR ( Amer) Est GFR (Non-Af Amer) BUN/Creatinine Ratio Glucose Lactate 1.7 Calcium Phosphorus Magnesium Total Bilirubin Direct Bilirubin GGT AST ALT Alkaline Phosphatase Ammonia 33.1 H Lactate Dehydrogenase Total Protein Albumin Globulin Albumin/Globulin Ratio Nasal Screen MRSA (PCR) Acetaminophen Hepatitis A IgM Ab Hep Bs Antigen Neg Hep B Core IgM Ab Hepatitis C Antibody Neg 03/07/21 03/07/21 03/07/21 04:49 04:49 04:49 WBC 13.53 H RBC 4.12 L Hgb 12.2 Hct 36.7 L MCV 89.1 MCH 29.6 MCHC 33.2 RDW Std Deviation 55.5 H RDW Coeff of Lawrence 17.3 H Plt Count 127 L MPV 10.3 Immature Gran % (Auto) 0.3 Neut % (Auto) 85.6 Lymph % (Auto) 5.2 [place] % (Auto) 8.3 Eos % (Auto) 0.5 Baso % (Auto) 0.1 Neut # (Auto) 11.59 H Lymph # (Auto) 0.70 L [place] # (Auto) 1.12 H Eos # (Auto) 0.07 Baso # (Auto) 0.01 Immature Gran # (Auto) 0.04 H Absolute Nucleated RBC 0.07 H Nucleated RBC % (auto) 0.6 Haptoglobin PT 18.2 H INR 1.9 H APTT 35.2 H PTT Ratio 1.3 Fibrinogen Fibrin Degrad Products D-Dimer Factor VIII Activity Mixed VBG pH Mixed VBG pCO2 Mixed VBG pO2 Mixed VBG HCO3 Mixed VBG Base Excess Mixed VBG O2 Saturation Barometric Pressure Sodium 136 Potassium 4.0 Chloride 94 L Carbon Dioxide 27 Anion Gap 15.0 H BUN 95 H Creatinine 4.62 H* D Est Cr Clr Drug Dosing 8.1 Est GFR ( Amer) 9.6 Est GFR (Non-Af Amer) 8.2 BUN/Creatinine Ratio 21.1 H Glucose 198 H Lactate Calcium 7.3 L Phosphorus 6.2 H Magnesium 2.5 H Total Bilirubin 0.8 Direct Bilirubin 0.4 H GGT AST 458 H ALT 609 H Alkaline Phosphatase 265 H Ammonia Lactate Dehydrogenase Total Protein 5.3 L Albumin 2.0 L Globulin 3.3 Albumin/Globulin Ratio 0.6 L Nasal Screen MRSA (PCR) Acetaminophen Hepatitis A IgM Ab Hep Bs Antigen Hep B Core IgM Ab Hepatitis C Antibody 03/07/21 03/07/21 03/07/21 04:49 09:05 09:05 WBC RBC Hgb Hct MCV MCH MCHC RDW Std Deviation RDW Coeff of Lawrence Plt Count MPV Immature Gran % (Auto) Neut % (Auto) Lymph % (Auto) [place] % (Auto) Eos % (Auto) Baso % (Auto) Neut # (Auto) Lymph # (Auto) [place] # (Auto) Eos # (Auto) Baso # (Auto) Immature Gran # (Auto) Absolute Nucleated RBC Nucleated RBC % (auto) Haptoglobin PT INR APTT PTT Ratio Fibrinogen Fibrin Degrad Products D-Dimer Factor VIII Activity Mixed VBG pH 7.39 Mixed VBG pCO2 45 Mixed VBG pO2 40 L Mixed VBG HCO3 27 H Mixed VBG Base Excess 1.4 Mixed VBG O2 Saturation 72.7 H Barometric Pressure 733.3 Sodium 133 L Potassium 3.8 Chloride 93 L Carbon Dioxide 26 Anion Gap 14.0 H BUN 94 H Creatinine 4.63 H* Est Cr Clr Drug Dosing 8.0 Est GFR ( Amer) 9.5 Est GFR (Non-Af Amer) 8.2 BUN/Creatinine Ratio 20.2 H Glucose 147 H Lactate Calcium 8.1 L Phosphorus Magnesium Total Bilirubin Direct Bilirubin GGT Pending AST ALT Alkaline Phosphatase Ammonia Lactate Dehydrogenase Total Protein Albumin Globulin Albumin/Globulin Ratio Nasal Screen MRSA (PCR) Acetaminophen Hepatitis A IgM Ab Hep Bs Antigen Hep B Core IgM Ab Hepatitis C Antibody
[2021-03-07 15:49] LABS: BUN Creatinine Ratio 19.8 (10-20); Calcium 7.8 mg/dl (8.5-10.1); Creatinine Clr Calc Pharmacy 8.3 ml/min; Est GFR (African American) 9.9; Est GFR (Non-African American) 8.5; Potassium 3.6 mmol/L (3.5-5.1)
[2021-03-07 15:52] LABS: Albumin Globulin Ratio 0.6 (0.9-2); Bilirubin,Total 0.6 mg/dl (0.2-1); Globulin 3.2 gm/dl (2.5-4.0); Total Protein 5.2 gm/dl (6.4-8.2)
--- NOTE | 2021-03-07 16:19 | Electrocardiogram Report ---
Test Reason : Blood Pressure : / mmHG Vent. Rate : 087 BPM Atrial Rate : 090 BPM P-R Int : 000 ms QRS Dur : 180 ms QT Int : 456 ms P-R-T Axes : 000 124 093 degrees QTc Int : 548 ms Atrial fibrillation with premature ventricular or aberrantly conducted complexes Right axis deviation Non-specific intra-ventricular conduction block Abnormal ECG When compared with ECG of 03-MAR-2021 23:45, No significant change was found Confirmed by Brian Culp [id number] on 03/07/2021 4:18:40 PM Referred By: REFERRED SELF Confirmed By:Miko Culp
--- NOTE | 2021-03-07 17:42 | Hospitalist Progress Note ---
Date of Service March 07, 2021 Assessment & Plan (1) Acute on chronic systolic heart failure: Right heart failure Present on admission with b/l LE edema was recently admitted at [facility]/ [place] cardiology with underlying issues including longstanding cardiomyopathy, afib CXR showed cardiomegaly and radiographic evidence of mild distal failure/fluid overload. Small right pleural effusion. ECHO in this admission showed left ventricle is normal in size. Moderate concentric left ventricular hypertrophy. Septal motion is consistent with conduction abnormality. Moderate global hypokinesis of the left ventricle. Ejection fraction 35 to 40% Cardiology on board Pt was transferred to the ICU for pressor management and inotropic effect Continue dobutamine drip Keep MAP greater than 65 and SBP greater than 90-95 Continue IV lasix 20mg TID Clinically improved Monitor I/O and continue fluid restricition Hypotension BP improved Currently on Levophed drip and dobutamine Will continue titrate levophed off BP improves Staghorn calculus Calculus of proximal left ureter CT abd/pelvis showed 3 cm staghorn left renal calculus. Obstructing 18 x 7 x 7 mm left UPJ calculus Urology on board S/P stent placement Left ureteral stent on 03/05 Will need percutaneous nephrolithotomy in the future at a tertiary center or ureteroscopy there due to her multiple comorbidities as per urology Continue to hold abx for now since urine and blood cx no growth Continue monitor Afib Rate controlled with metoprolol Continue aspirin for now Acute on chronic renal insufficiency Baseline creatinine was 1.4 in 2020 Creatinine 4.49 today Nephrology on board Discussed dialysis with patient, but pt declined at first, but now she reconsiders it if needed Avoid nephrotoxic agents Continue monitor BMP Transaminitis Possible related to fluid overload vs medication Liver enzymes trending down with AST from 1055->356, ALT from 678-> 550 and ALK from 370 to 248 Acetaminophen level less than 2 CT abd/pelvis showed unenhanced liver is normal in size, contour, and attenuation. There is no intrahepatic biliary ductal dilatation. MRCP showed o intra- or extrahepatic biliary ductal dilatation, and no choledocholithiasis. Elevated ammonia Level N-Acetylcysteine was given Starting on Lactulose Gastro on board Rocephin, statin and amiodarone discontinued Will avoid hepatotoxic agents Atrial fibrillation: S/P watchman procedure rate controlled Amiodarone was discontinued Hyperkalemia Potassium dropped from 5.8 to 5.2 ->3.6 Continue monitor Hypothyroidism Elevated TSH possible related to acute illness Continue Levothyroxine Will need to repeat TSH in 4 weeks Elevated INR Due to Liver failure received Vit K No sign of active bleeding Continue monitor INR History of seizures Continue Aaron. History of colon cancer Status post partial removal of colon in 2012. Deep venous thrombosis prophylaxis elevated INR . CODE STATUS FULL CODE Disposition Continue monitor in the ICU Admission and Anticipated Discharge Date Admission Date: March 04, 2021 Subjective Pt was seen and examined for follow up of renal failure and fluid overload Lying in bed with no distress eating her dinner Pt said that she feels much better She said that swelling improves Denies any chest pain, dizziness, fever and SOB Review of Systems Review of Systems: All systems reviewed & are unremarkable except as noted in Subjective Physical Exam Physical Exam: General- No acute distress Head- atraumatic Eyes- PERRL, EOMI, ENT- oropharynx clear Neck- supple, no JVD Lungs- clear to auscultation Heart- irregular rhythm; Abdomen- normal bowel sounds, soft, nontender Extremities- no calf tenderness, +edema B/L Neuro- alert, oriented x 3; PERRL, EOMI; no facial palsy; no dysarthria Skin- warm & dry Results & Data Results & Data ([facility]) Vital Signs (Past 12 Hours) Vital Signs Temp Pulse Resp BP Pulse Ox 03/07/21 17:22 97 H 15 100/84 96 03/07/21 17:00 97 H 20 79/57 L 95 03/07/21 16:10 36.3 C L 03/07/21 16:00 102 H 17 117/59 L 96 03/07/21 15:00 102 H 14 99/53 L 98 03/07/21 14:00 96 H 15 109/59 L 96 03/07/21 13:40 83 03/07/21 13:00 97 H 22 97/64 L 95 03/07/21 12:31 105 H 21 108/62 96 03/07/21 11:45 100 H 18 107/66 98 03/07/21 11:30 99 H 17 102/61 98 03/07/21 11:15 90 18 105/63 97 03/07/21 11:00 93 H 15 114/66 97 03/07/21 10:45 101 H 19 108/59 L 95 03/07/21 10:30 97 H 15 109/59 L 96 03/07/21 10:15 98 H 26 H 120/66 96 03/07/21 10:00 91 H 15 110/77 98 03/07/21 09:45 94 H 25 H 105/63 98 03/07/21 09:30 98 H 21 143/61 H 98 03/07/21 09:15 92 H 20 123/103 H 98 03/07/21 09:00 87 19 116/60 97 03/07/21 08:45 89 15 111/75 100 03/07/21 08:30 91 H 15 105/80 100 03/07/21 08:15 90 14 112/64 99 03/07/21 08:00 86 14 115/65 99 03/07/21 07:45 81 19 105/60 99 03/07/21 07:30 88 15 111/88 03/07/21 07:15 87 14 121/71 99 03/07/21 07:00 85 22 105/56 L 98 03/07/21 06:45 80 15 112/74 100 03/07/21 06:00 83 15 105/67 97 03/07/21 05:46 83 17 98 03/07/21 05:45 88 15 126/62 99
[2021-03-07] MEDS: levETIRAcetam 500 MG in 0.9 % SODIUM CHLORIDE 100 ML IV SCH (21:07)
[2021-03-07 23:53] LABS: BUN Creatinine Ratio 21.2 (10-20); Calcium 7.6 mg/dl (8.5-10.1); Creatinine Clr Calc Pharmacy 8.9 ml/min; Est GFR (African American) 10.7; Est GFR (Non-African American) 9.2; Potassium 3.4 mmol/L (3.5-5.1)
[2021-03-08] MEDS ORDERED: POTASSIUM CHLORIDE CRTAB 20 MEQ TABCR PO STA (00:24)
[2021-03-08] MEDS ORDERED: POTASSIUM CHLORIDE / WTR 20 MEQ/100 ML PLCT IV ONE (00:30)
[2021-03-08] MEDS ORDERED: DIGOXIN 125 MCG in SYRINGE 9.5 ML IV STA (04:18)
[2021-03-08] MEDS: NOREPINEPHRINE/D5W 8 MG/508 ML BAG IV SCH (04:40)
[2021-03-08 05:19] LABS: Hematocrit (blood only) 35.7 % (37-47); Hemoglobin 11.7 g/dL (12.0-16.0); Mean Corpuscular Hemoglobin 29.2 pg (25-34); Mean Corpuscular Hgb Conc 32.8 g/dL (32-36); Mean Platelet Volume 9.9 fL (7.4-10.4); Platelet Count 115 K/uL (130-400); RDW Coefficient of Variation 17.3 % (11.5-14.5); RDW Standard Deviation 55.1 fL (36.4-46.3); Red Blood Count 4.01 M/uL (4.2-5.4); White Blood Count 13.89 K/uL (4.8-10.8)
[2021-03-08 05:30] LABS: INR 1.5 (0.9-1.1); Partial Thromboplastin Ratio 1.2; Partial Thromboplastin Time 32.2 Seconds (21.0-31.0); Prothrombin Time 14.6 Seconds (9.0-12.0)
[2021-03-08 05:53] LABS: Albumin Globulin Ratio 0.7 (0.9-2); Albumin Level 2.1 gm/dl (3.4-5.0); BUN Creatinine Ratio 21.7 (10-20); Bilirubin,Total 0.9 mg/dl (0.2-1); Calcium 7.6 mg/dl (8.5-10.1); Creatinine Clr Calc Pharmacy 9.3 ml/min; Est GFR (African American) 11.4; Est GFR (Non-African American) 9.8; Globulin 3.1 gm/dl (2.5-4.0); Potassium 4.2 mmol/L (3.5-5.1); Total Protein 5.2 gm/dl (6.4-8.2)
[2021-03-08] MEDS: LEVOTHYROXINE SODIUM 75 MCG TABLET PO SCH (06:16)
[2021-03-08] MEDS: ASPIRIN 81 MG ECTAB PO SCH (07:37)
[2021-03-08] MEDS: FUROSEMIDE 20 MG in SYRINGE 0 ML IV SCH (07:37)
[2021-03-08] MEDS: CHOLECALCIFEROL 1,000 UNITS 25 MCG TAB PO SCH (07:37)
[2021-03-08] MEDS: LACTULOSE SYRUP 20 GM/30 ML UDC PO SCH (07:37)
[2021-03-08] MEDS: MULTIVITAMIN TAB PO SCH (07:37)
[2021-03-08] MEDS ORDERED: PHYTONADIONE 5 MG in SODIUM CHLORIDE 0.9% 50 ML IV ONE (08:15)
[2021-03-08] MEDS ORDERED: FUROSEMIDE 20 MG in SYRINGE 0 ML IV SCH ×2 (09:00→21:00)
--- NOTE | 2021-03-08 10:13 | Nephrology Progress Note ---
Date of Service March 08, 2021 Assessment & Plan (1) Acute on chronic renal insufficiency: prior baseline creatinine in early to mid 2019 had been 1.4, CKD 3B, eGFR mid 30s with about 300 mg proteinuria. No interval labs until 02/19 w/ 2.6 creatinine on presentation to OSH, 3.1 at d/c; up to 3.3 by presentation here and with abrupt uptick on 03/06 after ureteral stent on 03/05 to remove obstru cting L stone. plateau'd at high 4's-5 since 03/06. also now with severe but slightly improved transaminitis and coagulopathy/DIC (?presume from the liver). LILIBETH likely multifactorial: cardiorenal syndrome is likeliest underlying culprit in renal progression; obstructive uropathy also with a more acute role. Creatinine slowly downtrending to 4 from 4.2 yesterday >monitor chemistries Daily -Continue Lasix 20 mg 3 times daily >>with her volume overload, strict I/O and daily standing wts important (2) Acute on chronic systolic heart failure: longstanding dx more actively clinically since spring 2019. mild fluid overload w/ ascites, edema, pl effusion; minimal dyspnea -lasix as above -daily standing wts, low Na diet, FR -f/u cardiology recs (3) Kidney stone: obstructing L stone plus L staghorn calculus s/p 03/05 L ureteral stent; then later will need definitive therapy of staghorn at tertiary care center Admission and Anticipated Discharge Date Admission Date: March 04, 2021 Subjective Seen in follow-up for acute kidney injury and CHF. She feels better today. She is on oxygen nasal cannula 2 L. Legs are still swollen. She is diuresing well and was net -1.9 L. Review of Systems Review of Systems: All systems reviewed & are unremarkable except as noted in HPI & below Physical Exam Physical Exam: General exam: Appears comfortable, no acute distress HEENT: Pupils are equal and reactive to light Neck: No JVD, neck is supple trachea is midline Respiratory system: Clear breath sounds bilaterally. Gastrointestinal: Abdomen is soft, non distended, non tender, bowel sounds are present CVS: Regular rate and rhythm. No murmurs, rubs or gallops Musculoskeletal: No joint or muscle tenderness Extremities: Non tender,1+ edema, peripheral pulses are present Neuro: Oriented, no tremors, no focal neurological deficits Skin: No rashes Results & [facility] ([facility]) Vital Signs (Past 12 Hours) Vital Signs Pulse Resp BP Pulse Ox 03/08/21 08:00 110 H 03/08/21 06:01 110 H 15 94 03/08/21 06:00 103 H 17 103/52 L 94 03/08/21 05:30 102 H 16 93 03/08/21 05:01 114 H 19 94 03/08/21 05:00 105 H 16 90/66 L 93 03/08/21 04:40 116 H 03/08/21 04:30 113 H 22 94 03/08/21 04:01 116 H 18 94 03/08/21 04:00 114 H 20 115/63 91 03/08/21 03:30 111 H 15 96 03/08/21 03:01 115 H 15 95 03/08/21 03:00 110 H 18 105/57 L 95 03/08/21 02:30 117 H 15 94 03/08/21 02:01 115 H 16 94 03/08/21 02:00 112 H 16 101/61 95 03/08/21 01:30 120 H 19 95 03/08/21 01:01 113 H 15 95 03/08/21 01:00 112 H 16 89/59 L 95 03/08/21 00:30 112 H 20 95 03/08/21 00:00 114 H 20 84/52 L 95 03/07/21 23:30 112 H 19 95 03/07/21 23:01 109 H 14 95 03/07/21 23:00 105 H 15 109/48 L 94 03/07/21 22:30 109 H 17 94 Laboratory Results 03/08/21 04:49 03/07/21 03/08/21 03/08/21 15:04 04:49 04:49 WBC 13.89 H RBC 4.01 L MCV 89.0 MCH 29.2 MCHC 32.8 RDW Std Deviation 55.1 H RDW Coeff of Lawrence 17.3 H Plt Count 115 L MPV 9.9 Albumin 2.0 L 2.1 L
--- NOTE | 2021-03-08 12:26 | Critical Care Progress Note ---
Date of Service March 08, 2021 Assessment & Plan (1) Admitted to intensive care unit: Reason Critically Ill: 80-year-old female initially admitted for obstructive ureteral stone s/p stent. Now presents to the ICU with acute renal failure, acute on chronic heart failure requiring dobutamine and vasopressors, and acute liver failure. --Acute renal failure Patient has baseline CKD Etiology is likely cardiorenal Continue with dobutamine for inotrope support along with Levophed Keep MAP greater than 65 and SBP greater than 90-95 Avoid nephrotoxic medication Monitor urine output. Continue with diuretics No emergent indication for dialysis. Patient will not be a good candidate for dialysis given the multiple comorbidities that she has. Nephrology on board --Acute liver failure with coagulopathy and thrombocytopenia MELD 33, 52% 3-month mortality Elevated LDH, D-dimer, normal fibrinogen Tylenol level negative Patient did get loading dose of N-acetylcysteine Hepatitis B antigen and hep C antibody negative Possibilities for acute liver failure includes but not limited to medication (DILI), hypotension/shock liver as well as hepatic congestion from CHF (low in differential) Amiodarone and statin have been stopped. AST/ALT trending down Continue to monitor GI on board, as per them there is no need for transfer given the patient's age. -- HAGMA Likely sec to elevated BUN Monitor --Systolic CHF EF 25% Continue with diuretics and inotropes for the time being BiPAP nightly and as needed shortness of breath Cardiology on board --Pulmonary hypertension Likely type II Strict in and out Plan as above --History of A. fib S/p watchman device basement --History of obstructive left-sided kidney staghorn calculus S/p stent placement 03/05 Urine culture not growing anything --Hypothyroidism Continue with levothyroxine --History of hypertension Hold blood pressure medication --History of seizures On Keppra Renally adjusted dose --Prophylaxis VTE: IPC's GI: None Lines: Right IJ Diet: Clear liquid given the patient is on pressors and dobutamine Plan: In/out: -2214, urine output 3626 Another dose of vitamin K 5 mg for coagulopathy. I am going to decrease the Lasix to 20 mg twice daily. We will give extra dose of Lasix based on the output in the next 12 hours. Continue titrating down Levophed, continue with dobutamine at 5 keeping SBP greater than 90 and MAP greater than 65 We will cut down diuretics based on urine output because of pulmonary hypertension patient is also preload dependent. Patient heart rate is starting to trend up. She did get 125 MCG of digoxin overnight. Cannot use beta-blockers for it. We will consider amiodarone another dose of digoxin if the heart rate goes in the 130s. LFTs still on the downtrend. DC lactulose as I have personally spent 38 minutes of critical care time in the direct management of this patient. This is a life/limb threatening event. This includes time spent evaluating patient, direct bedside care, chart review, placing orders, interpretation of diagnostic studies, discussion with consultants, patient, and family members, as well as other required patient management activities. This time is exclusive of all separately billable procedures, and teaching time and separate from and in addition to any other critical care service time. Please note the above document was generated using voice recognition software. It may contain grammatical, syntax or spelling errors. (2) Elevated LFTs: (3) S/P ureteral stent placement: (4) Calculus of proximal left ureter: (5) Acute on chronic systolic heart failure: (6) Chronic systolic heart failure: (7) Atrial fibrillation: (8) Staghorn calculus: (9) Acute UTI: (10) Acute on chronic renal insufficiency: (11) Generalized weakness: (12) Gallstones: (13) Acute on chronic renal failure: (14) Acute liver failure: (15) Right heart failure: Admission and Anticipated Discharge Date Admission Date: March 04, 2021 Subjective Patient seen and examined at bedside. No acute distress, no adverse events overnight. Patient is making good amount of urine. Patient denies any chest pain, no shortness of breath. No nausea or vomiting. Fair appetite. Patient having multiple bowel movements likely from lactulose that I was giving for patient's hyperammonemia and acute liver failure. No headache, no blurry vision. Patient was on dobutamine 5, Levophed 0.03 at the time of examination. Review of Systems Review of Systems: All systems reviewed & are unremarkable except as noted in Subjective Physical Exam Physical Exam: Constitutional: No acute distress, frail-appearing HEENT: EOMI, PERRLA Respiratory system: Decreased air entry bilaterally, no wheeze, no rhonchi, positive crackles bilaterally CVS: S1-S2 positive, no murmurs or gallops, distant heart sounds Abdomen: Soft, nontender, nondistended, positive bowel sounds x4 Extremities: +2 pulses bilaterally radialis/ dorsalis pedis, no cyanosis, +3 pitting edema bilateral lower extremity Neuro: Awake alert oriented x3 Psych: Normal mood and affect G/U: Positive Odell Skin: no rashes, warm and dry Lymphatic: no cervical or axillary lymphadenopathy Results & Data Results & Data ([facility]) Vital Signs (Past 12 Hours) Vital Signs Pulse Resp BP Pulse Ox 03/08/21 08:00 110 H 03/08/21 06:01 110 H 15 94 03/08/21 06:00 103 H 17 103/52 L 94 03/08/21 05:30 102 H 16 93 03/08/21 05:01 114 H 19 94 03/08/21 05:00 105 H 16 90/66 L 93 03/08/21 04:40 116 H 03/08/21 04:30 113 H 22 94 03/08/21 04:01 116 H 18 94 03/08/21 04:00 114 H 20 115/63 91 03/08/21 03:30 111 H 15 96 03/08/21 03:01 115 H 15 95 03/08/21 03:00 110 H 18 105/57 L 95 03/08/21 02:30 117 H 15 94 03/08/21 02:01 115 H 16 94 03/08/21 02:00 112 H 16 101/61 95 03/08/21 01:30 120 H 19 95 03/08/21 01:01 113 H 15 95 03/08/21 01:00 112 H 16 89/59 L 95 03/08/21 00:30 112 H 20 95 03/08/21 04:49 03/08/21 04:49 Coding Level of Care Code Critical Care 1st 30-74 mins Diagnoses Admitted to intensive care unit Z78.9 Elevated LFTs R79.89 S/P ureteral stent placement Z96.0 Calculus of proximal left ureter N20.1 Acute on chronic systolic heart failure I50.23 Chronic systolic heart failure I50.22 Atrial fibrillation I48.91 Staghorn calculus N20.0 Acute UTI N39.0 Acute on chronic renal insufficiency N28.9; N18.9 Generalized weakness R53.1 Gallstones K80.20 Acute on chronic renal failure N17.9; N18.9 Acute liver failure K72.00 Right heart failure I50.810 Time Spent (min) 38
--- NOTE | 2021-03-08 14:00 | Cardiology Progress Note ---
Date of Service March 08, 2021 Assessment & Plan (1) Acute on chronic systolic heart failure: Patient is a complex 80-year-old female as outlined previously followed at [facility]/ [place] cardiology with underlying issues including longstanding cardiomyopathy, paroxysmal question persistent atrial fibrillation with recent hospitalization with atrial fibrillation with rapid response. She remains in atrial fibrillation per review of records appears to be plans for long-term rate control. Underwent watchman procedure to mitigate use of anticoagulants in the past. Current complaining of edema with only mild volume overload on exam no signs of hypoxia or pulmonary edema. Heart rate relatively well controlled. Current course complicated by acute on chronic renal failure possibly secondary to obstructive uropathy\ Repeat echocardiogram performed 03/06/2021 demonstrates ejection fraction of 25 to 30% but notable further enlargement of the right ventricle and severe right ventricular dysfunction. There is severe tricuspid insufficiency correlating with patient's hepatic congestion and elevated hepatic enzyme Pulmonary hypertension noted on previous echo as per review of outpatient records. Have reached out to primary recreation facility manager but contact still pending Suspect a component of chronic right heart failure with mitral intracuspid insufficiency potentially recently worsened by relapse into atrial fibrillation. Thromboembolic disease not completely excluded Recommendations: Appreciate custom frame assembler and conductor yard management. Patient appears hemodynamically stable with pressors in place hopefully augmenting RV function and potential renal perfusion. Would continue diuretics in order to maintain renal function. Will still be preload dependent. Ultimately would hope that renal function would recover enough to initiate further spontaneous diuresis. Overall suspect patient would have difficulty tolerating dialysis given shemodynamic (2) Atrial fibrillation: As above ultimately would like rate better controlled. Previously maintaining sinus rhythm with amiodarone though unlikely to return to sinus rhythm and maintain (3) Acute on chronic renal insufficiency: (4) Staghorn calculus: Admission and Anticipated Discharge Date Admission Date: March 04, 2021 Subjective Patient seen and examined, chart reviewed. States his breathing is improving today. Pressors have been discontinued and is now only requiring 2 L of oxygen via nasal cannula. Telemetry reviewed: Atrial fibrillation with somewhat rapid ventricular response. Review of Systems Review of Systems: All systems reviewed & are unremarkable except as noted in HPI & below Physical Exam Physical Exam: General: Awake, alert and oriented x 3. No acute distress. HEENT: Normocephalic, atraumatic. Pupils equal, round and reactive to light and accommodation. Extraocular muscles are intact. Anicteric sclera. Moist mucous membranes. Neck: No JVD. No bruit. Cardiovascular: irregularly irregular, unable to appreciate murmur, rub or gallop. Pulmonary: Clear to auscultation bilaterally. No rales, rhonchi, or wheezing. Abdomen: Bowel sounds x 4, soft. No rebound, guarding or tenderness. No organomegaly. Extremities: No clubbing, cyanosis or edema. +2 pedal pulses bilaterally. Skin: Warm and dry. Results & Data ([facility]) Vital Signs (Past 12 Hours) Vital Signs Pulse Resp BP Pulse Ox 03/08/21 08:00 110 H 03/08/21 06:01 110 H 15 94 03/08/21 06:00 103 H 17 103/52 L 94 03/08/21 05:30 102 H 16 93 03/08/21 05:01 114 H 19 94 03/08/21 05:00 105 H 16 90/66 L 93 03/08/21 04:40 116 H 03/08/21 04:30 113 H 22 94 03/08/21 04:01 116 H 18 94 03/08/21 04:00 114 H 20 115/63 91 03/08/21 03:30 111 H 15 96 03/08/21 03:01 115 H 15 95 03/08/21 03:00 110 H 18 105/57 L 95 03/08/21 02:30 117 H 15 94 03/08/21 02:01 115 H 16 94
[2021-03-08] MEDS ORDERED: FUROSEMIDE 20 MG in SYRINGE 0 ML IV ONE (15:45)
--- NOTE | 2021-03-08 17:57 | Hospitalist Progress Note ---
Date of Service March 08, 2021 Assessment & Plan (1) Acute on chronic systolic heart failure: Right heart failure Present on admission with b/l LE edema was recently admitted at [facility]/ [place] cardiology with underlying issues including longstanding cardiomyopathy, afib CXR showed cardiomegaly and radiographic evidence of mild distal failure/fluid overload. Small right pleural effusion. ECHO in this admission showed left ventricle is normal in size. Moderate concentric left ventricular hypertrophy. Septal motion is consistent with conduction abnormality. Moderate global hypokinesis of the left ventricle. Ejection fraction 35 to 40% Cardiology on board Pt was transferred to the ICU for pressor management and inotropic effect Continue dobutamine drip Levophed was discontinued Keep MAP greater than 65 and SBP greater than 90-95 Continue IV lasix 20mg TID Clinically improved Monitor I/O and continue fluid restricition Hypotension BP stable Currently on Levophed drip and dobutamine Levophed drip was discontinued Continue monitor BP Staghorn calculus Calculus of proximal left ureter CT abd/pelvis showed 3 cm staghorn left renal calculus. Obstructing 18 x 7 x 7 mm left UPJ calculus Urology on board S/P stent placement Left ureteral stent on 03/05 Will need percutaneous nephrolithotomy in the future at a tertiary center or ureteroscopy there due to her multiple comorbidities as per urology Continue to hold abx for now since urine and blood cx no growth Continue monitor Afib Rate controlled with metoprolol Continue aspirin for now Acute on chronic renal insufficiency Baseline creatinine was 1.4 in 2019 Creatinine slowly trending down to 4 today Nephrology on board Discussed dialysis with patient, but pt declined at first, but now she reconsiders it if needed Avoid nephrotoxic agents Continue monitor BMP Transaminitis Possible related to fluid overload vs medication Liver enzymes trending down with AST from 1055->356--> 254, ALT from 678-> 550-->473 and ALK from 370 to 248->232 Acetaminophen level less than 2 CT abd/pelvis showed unenhanced liver is normal in size, contour, and attenuation. There is no intrahepatic biliary ductal dilatation. MRCP showed o intra- or extrahepatic biliary ductal dilatation, and no choledocholithiasis. Elevated ammonia Level N-Acetylcysteine was given lactulose discontinue Gastro on board Rocephin, statin and amiodarone discontinued Will avoid hepatotoxic agents Continue monitor Liver enzyymes Atrial fibrillation: S/P watchman procedure rate controlled Amiodarone was discontinued Hyperkalemia Potassium dropped from 5.8 to 5.2 ->3.6->4.2 today Continue monitor Hypothyroidism Elevated TSH possible related to acute illness Continue Levothyroxine Will need to repeat TSH in 4 weeks Elevated INR Due to Liver failure received Vit K, INR 1.5 today No sign of active bleeding Continue monitor INR History of seizures Continue Aaron. History of colon cancer Status post partial removal of colon in 2012. Deep venous thrombosis prophylaxis elevated INR . CODE STATUS FULL CODE Disposition Continue monitor in the ICU Admission and Anticipated Discharge Date Admission Date: March 04, 2021 Subjective Pt was seen and examined for follow up of renal failure and fluid overload Lying in bed with no distress resting Pt said that she feels tired today She was titrate off levophed Denies any chest pain, dizziness, fever and SOB Review of Systems Review of Systems: All systems reviewed & are unremarkable except as noted in Subjective Physical Exam Physical Exam: General- No acute distress Head- atraumatic Eyes- PERRL, EOMI, ENT- oropharynx clear Neck- supple, no JVD Lungs- clear to auscultation Heart- irregular rhythm; Abdomen- normal bowel sounds, soft, nontender Extremities- no calf tenderness, +edema B/L Neuro- alert, oriented x 3; PERRL, EOMI; no facial palsy; no dysarthria Skin- warm & dry Results & Data Results & Data ([facility]) Vital Signs (Past 12 Hours) Vital Signs Pulse Resp BP Pulse Ox 03/08/21 15:01 113 H 17 96 03/08/21 15:00 121 H 17 116/65 96 03/08/21 14:31 114 H 15 97 03/08/21 14:30 113 H 15 111/62 97 03/08/21 14:01 102 H 15 96 03/08/21 14:00 107 H 17 93/69 L 97 03/08/21 13:31 106 H 17 95 03/08/21 13:30 102 H 17 105/64 96 03/08/21 13:01 104 H 15 96 03/08/21 13:00 103 H 17 119/66 96 03/08/21 12:31 99 H 18 95 03/08/21 12:30 109 H 18 110/67 96 03/08/21 12:01 118 H 20 95 03/08/21 12:00 108 H 17 107/62 96 03/08/21 11:31 112 H 23 96 03/08/21 11:30 110 H 18 117/49 L 96 03/08/21 11:01 103 H 16 95 03/08/21 11:00 108 H 20 97/62 L 95 03/08/21 10:31 116 H 16 96 03/08/21 10:30 112 H 17 82/55 L 96 03/08/21 10:01 105 H 17 95 03/08/21 10:00 120 H 18 94/63 L 95 03/08/21 09:52 111 H 18 96/68 L 96 03/08/21 09:31 108 H 18 94 03/08/21 09:30 115 H 28 H 82/53 L 95 03/08/21 09:01 101 H 17 94 03/08/21 09:00 103 H 17 104/57 L 92 03/08/21 08:36 119 H 21 99/59 L 95 03/08/21 08:31 117 H 19 95 03/08/21 08:30 114 H 18 99/59 L 95 03/08/21 08:17 114 H 22 102/55 L 95 03/08/21 08:00 117 H 20 90/59 L 94 03/08/21 07:31 121 H 21 94 03/08/21 07:30 120 H 24 86/53 L 94 03/08/21 07:13 108 H 25 H 89/59 L 95 03/08/21 07:01 118 H 19 95 03/08/21 07:00 117 H 18 86/61 L 94 03/08/21 06:30 113 H 18 94 03/08/21 06:01 110 H 15 94 03/08/21 06:00 103 H 17 103/52 L 94
[2021-03-08] MEDS: levETIRAcetam 500 MG in 0.9 % SODIUM CHLORIDE 100 ML IV SCH (19:51)
[2021-03-08] MEDS ORDERED: DOBUTamine 500MG / 250ML D5W IV ONE (22:19)
[2021-03-09 05:44] LABS: Hematocrit (blood only) 33.7 % (37-47); Hemoglobin 10.9 g/dL (12.0-16.0); Mean Corpuscular Hgb Conc 32.3 g/dL (32-36); Mean Corpuscular Volume 89.6 fL (80-100); Mean Platelet Volume 10.2 fL (7.4-10.4); Platelet Count 110 K/uL (130-400); RDW Coefficient of Variation 17.5 % (11.5-14.5); Red Blood Count 3.76 M/uL (4.2-5.4); White Blood Count 10.94 K/uL (4.8-10.8)
[2021-03-09 05:57] LABS: INR 1.2 (0.9-1.1); Partial Thromboplastin Ratio 1.2; Partial Thromboplastin Time 30.8 Seconds (21.0-31.0); Prothrombin Time 12.4 Seconds (9.0-12.0)
[2021-03-09 06:18] LABS: Albumin Level 2.1 gm/dl (3.4-5.0); BUN Creatinine Ratio 23.3 (10-20); Calcium 7.7 mg/dl (8.5-10.1); Creatinine Clr Calc Pharmacy 11.7 ml/min; Est GFR (African American) 14.9; Est GFR (Non-African American) 12.8; Potassium 3.8 mmol/L (3.5-5.1)
[2021-03-09 06:21] LABS: Albumin Globulin Ratio 0.7 (0.9-2); Bilirubin,Total 0.9 mg/dl (0.2-1); Total Protein 5.1 gm/dl (6.4-8.2)
[2021-03-09] MEDS ORDERED: POTASSIUM CHLORIDE CRTAB 20 MEQ TABCR PO STA (06:27)
[2021-03-09 07:14] LABS: Magnesium 2.1 mg/dl (1.8-2.4); Phosphorus 4.6 mg/dl (2.5-4.9)
[2021-03-09] MEDS: LEVOTHYROXINE SODIUM 75 MCG TABLET PO SCH (08:52)
[2021-03-09] MEDS: FAMOTIDINE 20 MG TAB PO SCH (08:52)
[2021-03-09] MEDS: ASPIRIN 81 MG ECTAB PO SCH (08:52)
[2021-03-09] MEDS: CHOLECALCIFEROL 1,000 UNITS 25 MCG TAB PO SCH (08:52)
[2021-03-09] MEDS: FUROSEMIDE 20 MG in SYRINGE 0 ML IV SCH ×3 (08:52→21:48)
[2021-03-09] MEDS: MULTIVITAMIN TAB PO SCH (08:52)
[2021-03-09] MEDS: NOREPINEPHRINE/D5W 8 MG/508 ML BAG IV SCH (09:12)
--- NOTE | 2021-03-09 09:23 | Nephrology Progress Note ---
Date of Service March 09, 2021 Assessment & Plan (1) Acute on chronic renal insufficiency: prior baseline creatinine in early to mid 2019 had been 1.4, CKD 3B, eGFR mid 30s with about 300 mg proteinuria. No interval labs until 02/19 w/ 2.6 creatinine on presentation to OSH, 3.1 at d/c; up to 3.3 by presentation here and with abrupt uptick on 03/06 after ureteral stent on 03/05 to remove obstructing L stone. plateau'd at high 4's-5 since 03/06. LILIBETH likely multifactorial: cardiorenal syndrome is likeliest underlying culprit in renal progression; obstructive uropathy also with a more acute role. Creatinine slowly downtrending to 3.2 from 4 yesterday >monitor chemistries Daily -Continue Lasix 20 mg 3 times daily >>with her volume overload, strict I/O and daily standing wts important (2) Acute on chronic systolic heart failure: longstanding dx more actively clinically since spring 2019. mild fluid overload w/ ascites, edema, pl effusion; minimal dyspnea -lasix as above -daily standing wts, low Na diet, FR -f/u cardiology recs (3) Kidney stone: obstructing L stone plus L staghorn calculus s/p 03/05 L ureteral stent; then later will need definitive therapy of staghorn at tertiary care center Admission and Anticipated Discharge Date Admission Date: March 04, 2021 Subjective Seen in follow-up for acute kidney injury on CKD. Breathing is better. Blood pressure is soft but off pressors now. Continues to have tachycardia with activity. She is on oxygen 2 L nasal cannula. She was net -1.2 L. Creatinine downtrending. Review of Systems Review of Systems: All systems reviewed & are unremarkable except as noted in HPI & below Physical Exam Physical Exam: General exam: Appears comfortable, no acute distress HEENT: Pupils are equal and reactive to light Neck: No JVD, neck is supple trachea is midline Respiratory system: Crackles bilaterally. Gastrointestinal: Abdomen is soft, non distended, non tender, bowel sounds are present CVS: Regular rate and rhythm. No murmurs, rubs or gallops Musculoskeletal: No joint or muscle tenderness Extremities: Non tender, 1+ edema, peripheral pulses are present Neuro: Oriented, no tremors, no focal neurological deficits Skin: No rashes Results & Data ([facility]) Vital Signs (Past 12 Hours) Vital Signs Pulse Resp BP Pulse Ox 03/09/21 08:14 99 H 03/08/21 23:00 118 H 17 116/56 L 97 03/08/21 22:00 108 H 15 119/66 97
--- NOTE | 2021-03-09 11:44 | Critical Care Progress Note ---
Date of Service March 09, 2021 Assessment & Plan (1) Admitted to intensive care unit: Reason Critically Ill: 80-year-old female initially admitted for obstructive ureteral stone s/p stent. Now presents to the ICU with acute renal failure, acute on chronic heart failure requiring dobutamine and vasopressors, and acute liver failure. --Acute renal failure Improving Patient has baseline CKD Etiology is likely cardiorenal S/p inotrope and vasopressor support Keep MAP greater than 65 and SBP greater than 90-95 Avoid nephrotoxic medication Monitor urine output. Continue with diuretics No emergent indication for dialysis. Patient will not be a good candidate for dialysis given the multiple comorbidities that she has. Nephrology on board --Acute liver failure with coagulopathy and thrombocytopenia MELD 33, 52% 3-month mortality Elevated LDH, D-dimer, normal fibrinogen Tylenol level negative Patient did get loading dose of N-acetylcysteine Hepatitis B antigen and hep C antibody negative Possibilities for acute liver failure includes but not limited to medication (DILI), hypotension/shock liver as well as hepatic congestion from CHF (low in differential) Amiodarone and statin have been stopped. AST/ALT trending down Continue to monitor GI on board, as per them there is no need for transfer given the patient's age. --Systolic CHF EF 25% Continue with diuretics and inotropes for the time being BiPAP nightly and as needed shortness of breath Cardiology on board --Pulmonary hypertension Likely type II Strict in and out Plan as above --History of A. fib S/p watchman device basement --History of obstructive left-sided kidney staghorn calculus S/p stent placement 03/05 Urine culture not growing anything --Hypothyroidism Continue with levothyroxine --History of hypertension Hold blood pressure medication --History of seizures On Keppra Renally adjusted dose --Prophylaxis VTE: IPC's GI: None Lines: Right IJ Diet: Clear liquid given the patient is on pressors and dobutamine Plan: In/out: - 1211, urine output 2837 Continue with Lasix 40 mg 3 times daily. Patient has been off dobutamine since 4 AM. Patient's heart rate has been around high 90s to low 100s. If it starts to creep up in the 120s low-dose metoprolol could be started. LFTs still on the downtrend. Incentive spirometry If the patient stays off any vasopressors or inotropes till 2 PM we will santana ngrade the patient to a telemetry floor. We will downgrade the patient with TLC in case she needs inotropes/vasopressor. If she does not need vasopressor support in the next 24-48 hours it can be dis continued. Please note the above document was generated using voice recognition software. It may contain grammatical, syntax or spelling errors.Any formal questions or concerns about the content, text or information contained within the body of this dictation should be directly addressed to the provider for clarification. (2) Elevated LFTs: (3) Acute on chronic systolic heart failure: (4) Atrial fibrillation: (5) Staghorn calculus: (6) Acute on chronic renal insufficiency: (7) Generalized weakness: (8) Acute on chronic renal failure: (9) Acute liver failure: (10) Right heart failure: Admission and Anticipated Discharge Date Admission Date: March 04, 2021 Subjective Patient seen and examined at bedside. No acute distress, no adverse events overnight. Patient has been off dobutamine drip since 4 AM. She is maintaining systolic blood pressure in the 120s. Denies any shortness of breath, no abdominal pain today. No nausea or vomiting. She is tolerating diet. No headache, no blurry vision. Review of Systems Review of Systems: All systems reviewed & are unremarkable except as noted in Subjective Physical Exam Physical Exam: Constitutional: No acute distress, frail-appearing HEENT: EOMI, PERRLA Respiratory system: Decreased air entry bilaterally, no wheeze, no rhonchi, positive crackles bilaterally CVS: S1-S2 positive, no murmurs or gallops, distant heart sounds Abdomen: Soft, nontender, nondistended, positive bowel sounds x4 Extremities: +2 pulses bilaterally radialis/ dorsalis pedis, no cyanosis, +3 pitting edema bilateral lower extremity Neuro: Awake alert oriented x3 Psych: Normal mood and affect G/U: Positive Odell Skin: no rashes, warm and dry Lymphatic: no cervical or axillary lymphadenopathy Results & Data Results & Data ([facility]) Vital Signs (Past 12 Hours) Vital Signs Temp Pulse Resp BP Pulse Ox 03/09/21 09:00 105 H 20 121/84 95 03/09/21 08:14 99 H 03/09/21 08:00 98 H 19 122/62 96 03/09/21 07:00 36.5 C 93 H 12 117/55 L 100 03/09/21 05:31 03/09/21 05:31 Coding Level of Care Code 64064 Subseq Hosp Care Lvl 3 Diagnoses Admitted to intensive care unit Z78.9 Elevated LFTs R79.89 Acute on chronic systolic heart failure I50.23 Atrial fibrillation I48.91 Staghorn calculus N20.0 Acute on chronic renal insufficiency N28.9; N18.9 Generalized weakness R53.1 Acute on chronic renal failure N17.9; N18.9 Acute liver failure K72.00 Right heart failure I50.810
[2021-03-09] MEDS ORDERED: Nursing to Pharmacy Communication SCH (13:30)
--- NOTE | 2021-03-09 14:54 | Cardiology Progress Note ---
Date of Service March 09, 2021 Assessment & Plan (1) Acute on chronic systolic heart failure: Patient is a complex 80-year-old female as outlined previously followed at [facility]/ [place] cardiology with underlying issues including longstanding cardiomyopathy, paroxysmal question persistent atrial fibrillation with recent hospitalization with atrial fibrillation with rapid response. She remains in atrial fibrillation per review of records appears to be plans for long-term rate control. Underwent watchman procedure to mitigate use of anticoagulants in the past. Current complaining of edema with only mild volume overload on exam no signs of hypoxia or pulmonary edema. Heart rate relatively well controlled. Current course complicated by acute on chronic renal failure possibly secondary to obstructive uropathy\ Repeat echocardiogram performed 03/06/2021 demonstrates ejection fraction of 25 to 30% but notable further enlargement of the right ventricle and severe right ventricular dysfunction. There is severe tricuspid insufficiency correlating with patient's hepatic congestion and elevated hepatic enzyme Pulmonary hypertension noted on previous echo as per review of outpatient records. Have reached out to primary housekeeping/laundry but contact still pending Suspect a component of chronic right heart failure with mitral intracuspid insufficiency potentially recently worsened by relapse into atrial fibrillation. Thromboembolic disease not completely excluded Recommendations: Appreciate automotive detailer and mastic floor layer management. Patient appears hemodynamically stable without pressors in place. Would continue diuretics in order to maintain renal function. Will still be preload dependent. Ultimately would hope that renal function would recover enough to initiate further spontaneous diuresis. Overall suspect patient would have difficulty tolerating dialysis given hemodynamics Agree with transfer to telemetry at this time. (2) Atrial fibrillation: As above ultimately would like rate better controlled. Previously maintai kriss sinus rhythm with amiodarone though unlikely to return to sinus rhythm and maintain (3) Acute on chronic renal insufficiency: (4) Staghorn calculus: Admission and Anticipated Discharge Date Admission Date: March 04, 2021 Subjective Patient seen and examined, chart reviewed. States that she is feeling better today. Now off pressors. Breathing has improved but not yet back to baseline. Good appetite. Denies chest pain, palpitations, lightheadedness or dizziness. Telemetry reviewed: Atrial fibrillation with rates in the 90s to 110's Review of Systems Review of Systems: All systems reviewed & are unremarkable except as noted in HPI & below Physical Exam Physical Exam: General: Awake, alert and oriented x 3. No acute distress. HEENT: Normocephalic, atraumatic. Pupils equal, round and reactive to light and accommodation. Extraocular muscles are intact. Anicteric sclera. Moist mucous membranes. Neck: No JVD. No bruit. Cardiovascular: irregularly irregular, unable to appreciate murmur, rub or gallop. Pulmonary: Clear to auscultation bilaterally. No rales, rhonchi, or wheezing. Abdomen: Bowel sounds x 4, soft. No rebound, guarding or tenderness. No organomegaly. Extremities: No clubbing, cyanosis or edema. +2 pedal pulses bilaterally. Skin: Warm and dry. Results & Data ([facility]) Vital Signs (Past 12 Hours) Vital Signs Temp Pulse Resp BP Pulse Ox 03/09/21 13:01 108 H 21 135/76 96 03/09/21 13:00 97 H 16 97 03/09/21 12:01 112 H 14 96 03/09/21 12:00 36.5 C 127 H 22 93/68 L 97 03/09/21 11:00 107 H 17 96 03/09/21 10:00 106 H 20 85/61 L 98 03/09/21 09:00 105 H 20 121/84 95 03/09/21 08:14 99 H 03/09/21 08:00 36.5 C 98 H 19 122/62 96 03/09/21 07:00 36.5 C 93 H 12 117/55 L 100
--- NOTE | 2021-03-09 17:22 | Hospitalist Progress Note ---
Date of Service March 09, 2021 Assessment & Plan (1) Acute on chronic systolic heart failure: Right heart failure Present on admission with b/l LE edema was recently admitted at [facility]/ [place] cardiology with underlying issues including longstanding cardiomyopathy, afib CXR showed cardiomegaly and radiographic evidence of mild distal failure/fluid overload. Small right pleural effusion. ECHO in this admission showed left ventricle is normal in size. Moderate concentric left ventricular hypertrophy. Septal motion is consistent with conduction abnormality. Moderate global hypokinesis of the left ventricle. Ejection fraction 35 to 40% Cardiology on board Pt was transferred to the ICU for pressor management and inotropic effect Levophed and dobutamine discontinued Lasix increased to 20mg TID Clinically improved Monitor I/O and continue fluid restricition Hypotension BP stable Off Levophed and dobutamine drip BP has been stable Continue monitor BP Staghorn calculus Calculus of proximal left ureter CT abd/pelvis showed 3 cm staghorn left renal calculus. Obstructing 18 x 7 x 7 mm left UPJ calculus Urology on board S/P stent placement Left ureteral stent on 03/05 Will need percutaneous nephrolithotomy in the future at a tertiary center or ureteroscopy there due to her multiple comorbidities as per urology Continue to hold abx for now since urine and blood cx no growth Continue monitor Afib Rate has been in the low 100's Metoprolol on hold If HR increases above 120, ok to give a low dose [id number] If low dose beta enid given, will need to monitor BP Continue aspirin for now Acute on chronic renal insufficiency Baseline creatinine was 1.4 in 2019 Creatinine slowly trending down to 3.2 today Nephrology on board Discussed dialysis with patient, but pt declined at first, but now she reconsiders it if needed Avoid nephrotoxic agents Continue monitor BMP Transaminitis Possible related to fluid overload vs medication Liver enzymes trending down with AST from 1055->356--> 254->143, ALT from 678-> 550-->473->351 and ALK from 370 to 248->232->198 Acetaminophen level less than 2 CT abd/pelvis showed unenhanced liver is normal in size, contour, and attenuation. There is no intrahepatic biliary ductal dilatation. MRCP showed o intra- or extrahepatic biliary ductal dilatation, and no choledocholithiasis. Elevated ammonia Level N-Acetylcysteine was given lactulose discontinue Gastro on board Rocephin, statin and amiodarone discontinued Will avoid hepatotoxic agents Continue monitor Liver enzymes Atrial fibrillation: S/P watchman procedure rate controlled Amiodarone was discontinued Hyperkalemia Potassium dropped from 5.8 to 5.2 ->3.6->4.2 today Continue monitor Hypothyroidism Elevated TSH possible related to acute illness Continue Levothyroxine Will need to repeat TSH in 4 weeks Elevated INR Due to Liver failure received Vit K, INR 1.2 today No sign of active bleeding Continue monitor INR History of seizures Continue Aaron. History of colon cancer Status post partial removal of colon in 2012. Deep venous thrombosis prophylaxis elevated INR . CODE STATUS FULL CODE Disposition Will transfer to PCU Admission and Anticipated Discharge Date Admission Date: March 04, 2021 Subjective Pt was seen and examined for follow up of renal failure and fluid overload Lying in bed with no distress resting comfortable Pt said that she is feeling much better She has been of levophed and dobutamine Denies any chest pain, dizziness, fever and SOB Review of Systems Review of Systems: All systems reviewed & are unremarkable except as noted in Subjective Physical Exam Physical Exam: General- No acute distress Head- atraumatic Eyes- PERRL, EOMI, ENT- oropharynx clear Neck- supple, no JVD Lungs- clear to auscultation Heart- irregular rhythm; Abdomen- normal bowel sounds, soft, nontender Extremities- no calf tenderness, +edema B/L Neuro- alert, oriented x 3; PERRL, EOMI; no facial palsy; no dysarthria Skin- warm & dry Results & Data Results & Data ([facility]) Vital Signs (Past 12 Hours) Vital Signs Temp Pulse Resp BP Pulse Ox 03/09/21 16:58 36.5 C 03/09/21 16:52 113 H 22 101/76 96 03/09/21 15:06 110 H 03/09/21 13:01 108 H 21 135/76 96 03/09/21 13:00 97 H 16 97 03/09/21 12:01 112 H 14 96 03/09/21 12:00 36.5 C 127 H 22 93/68 L 97 03/09/21 11:00 107 H 17 96 03/09/21 10:00 106 H 20 85/61 L 98 03/09/21 09:00 105 H 20 121/84 95 03/09/21 08:14 99 H 04/25/21 08:00 36.5 C 98 H 19 122/62 96 03/09/21 07:00 36.5 C 93 H 12 117/55 L 100
[2021-03-09] MEDS ORDERED: DIGOXIN 0.125 MG TAB PO ONE (18:11)
[2021-03-09] MEDS: levETIRAcetam 500 MG in 0.9 % SODIUM CHLORIDE 100 ML IV SCH (21:48)
[2021-03-10] MEDS: LEVOTHYROXINE SODIUM 75 MCG TABLET PO SCH (05:48)
[2021-03-10] MEDS: FUROSEMIDE 20 MG in SYRINGE 0 ML IV SCH (05:48)
[2021-03-10 06:07] LABS: Hematocrit (blood only) 36.4 % (37-47); Hemoglobin 11.8 g/dL (12.0-16.0); Mean Corpuscular Hemoglobin 29.5 pg (25-34); Mean Corpuscular Hgb Conc 32.4 g/dL (32-36); Mean Platelet Volume 9.4 fL (7.4-10.4); Platelet Count 112 K/uL (130-400); RDW Coefficient of Variation 17.6 % (11.5-14.5); RDW Standard Deviation 57.8 fL (36.4-46.3); White Blood Count 12.48 K/uL (4.8-10.8)
[2021-03-10 06:47] LABS: Albumin Level 2.1 gm/dl (3.4-5.0); BUN Creatinine Ratio 25.9 (10-20); Calcium 7.8 mg/dl (8.5-10.1); Creatinine Clr Calc Pharmacy 15.1 ml/min; Est GFR (African American) 20.4; Est GFR (Non-African American) 17.6; Potassium 4.2 mmol/L (3.5-5.1)
[2021-03-10 06:50] LABS: Albumin Globulin Ratio 0.6 (0.9-2); Globulin 3.4 gm/dl (2.5-4.0); Total Protein 5.5 gm/dl (6.4-8.2)
[2021-03-10] MEDS: FAMOTIDINE 20 MG TAB PO SCH (08:21)
[2021-03-10] MEDS: ASPIRIN 81 MG ECTAB PO SCH (08:21)
[2021-03-10] MEDS: CHOLECALCIFEROL 1,000 UNITS 25 MCG TAB PO SCH (08:21)
[2021-03-10] MEDS: MULTIVITAMIN TAB PO SCH (08:21)
[2021-03-10] MEDS: METOPROLOL SUCC 25MG EXT REL TAB PO SCH ×2 (08:22→21:03)
--- NOTE | 2021-03-10 10:41 | Progress Notes ---
DATE: 03/10/2021 NEPHROLOGY PROGRESS NOTE SUBJECTIVE: Overnight, no new issues. She is weak and does have significant bilateral lower extremity edema, but does not complain of any more shortness of breath than usual. She made about 2600 mL of urine yesterday. OBJECTIVE: VITAL SIGNS: Blood pressure is 137/65, pulse rate 101, temperature 36.7, 92% on 1 liter nasal cannula. HEENT: Mucous membrane moist. NECK: Supple. No jugular venous distention is present. CHEST: Bilateral decreased breath sounds, occasional crackles. CARDIOVASCULAR: S1, S2, regular. Soft systolic murmur heard. ABDOMEN: Soft, nontender. EXTREMITIES: Shows 2+ pitting edema bilaterally. LABORATORY TESTS: Sodium 142, potassium 4.2, BUN 64, creatinine is down to 2.47, calcium 7.8. ASSESSMENT AND PLAN: Acute on chronic renal failure, prior baseline creatinine was 1.4. Creatinine on presentation was 2.6. Peaked at high 4s and low 4s, but for the last few days it has been trending down again. Acute kidney injury is consistent with ATN with some contribution from cardiorenal syndrome as well as obstructive uropathy. She is making good urine output, although she still appears quite fluid overloaded. RECOMMENDATIONS: 1. Change the Lasix to 40 mg IV twice daily. 2. Continue input output charting. 3. Continue daily labs. Kidney stone, she had obstructing left stone plus left staghorn calculus, status post 03/05/2021 left ureteral stent. She will later need definitive [facility] the staghorn calculus [facility].
[2021-03-10] MEDS: FUROSEMIDE 40 MG in SYRINGE 0 ML IV SCH ×2 (11:02→21:02)
--- NOTE | 2021-03-10 13:37 | Cardiology Progress Note ---
Date of Service March 10, 2021 Assessment & Plan (1) Acute on chronic systolic heart failure: Patient is a complex 80-year-old female as outlined previously followed at [facility]/ [place] cardiology with underlying issues including longstanding cardiomyopathy, paroxysmal question persistent atrial fibrillation with recent hospitalization with atrial fibrillation with rapid response. She remains in atrial fibrillation per review of records appears to be plans for long-term rate control. Underwent watchman procedure to mitigate use of anticoagulants in the past. Current complaining of edema with only mild volume overload on exam no signs of hypoxia or pulmonary edema. Heart rate relatively well controlled. Current course complicated by acute on chronic renal failure possibly secondary to obstructive uropathy\ Repeat echocardiogram performed 03/06/2021 demonstrates ejection fraction of 25 to 30% but notable further enlargement of the right ventricle and severe right ventricular dysfunction. There is severe tricuspid insufficiency correlating with patient's hepatic congestion and elevated hepatic enzyme Pulmonary hypertension noted on previous echo as per review of outpatient records. Have reached out to primary base draw operator but contact still pending Suspect a component of chronic right heart failure with mitral intracuspid insufficiency potentially recently worsened by relapse into atrial fibrillation. Thromboembolic disease not completely excluded Recommendations: Appreciate hand grinder and fuel assembler management. Patient appears hemodynamically stable without pressors in place. Agree with our nephrology colleagues on diuretic management, no changes from a cardiac standpoint. (2) Atrial fibrillation: As above ultimately would like rate better controlled. Previously maintaining sinus rhythm with amiodarone though unlikely to return to sinus rhythm and maintain (3) Acute on chronic renal insufficiency: (4) Staghorn calculus: Admission and Anticipated Discharge Date Admission Date: March 04, 2021 Subjective Patient seen and examined, chart reviewed. States that she is feeling much better today. Notes the breathing is just about back to baseline. Denies chest pain, palpitations, lightheadedness or dizziness. She does remain very weak. Telemetry reviewed: Normal sinus rhythm without arrhythmia. Review of Systems Review of Systems: All systems reviewed & are unremarkable except as noted in HPI & below Physical Exam Physical Exam: General: Awake, alert and oriented x 3. No acute distress. HEENT: Normocephalic, atraumatic. Pupils equal, round and reactive to light and accommodation. Extraocular muscles are intact. Anicteric sclera. Moist mucous membranes. Neck: No JVD. No bruit. Cardiovascular: irregularly irregular, unable to appreciate murmur, rub or gallop. Pulmonary: Clear to auscultation bilaterally. No rales, rhonchi, or wheezing. Abdomen: Bowel sounds x 4, soft. No rebound, guarding or tenderness. No organomegaly. Extremities: No clubbing, cyanosis or edema. +2 pedal pulses bilaterally. Skin: Warm and dry. Results & Data ([facility]) Vital Signs (Past 12 Hours) Vital Signs Temp Pulse Pulse Resp BP BP Pulse Ox 03/10/21 07:43 36.7 C 101 H 16 137/65 92 03/10/21 06:45 145 H 123/55 L 03/10/21 03:39 36.6 C 108 H 18 127/59 L 95 03/10/21 01:48 110 H
[2021-03-10 14:51] LABS: Haptoglobin 103 mg/dL (43-212); Hepatitis A Antibody IgM NON-REACTIVE (NON-REACTIVE); Hepatitis B Core Antibody IgM NON-REACTIVE (NON-REACTIVE)
--- NOTE | 2021-03-10 17:49 | Hospitalist Progress Note ---
Date of Service March 10, 2021 Assessment & Plan (1) Acute on chronic systolic heart failure: Right heart failure Present on admission with b/l LE edema was recently admitted at [facility]/ [place] cardiology with underlying issues including longstanding cardiomyopathy, afib CXR showed cardiomegaly and radiographic evidence of mild distal failure/fluid overload. Small right pleural effusion. ECHO in this admission showed left ventricle is normal in size. Moderate concentric left ventricular hypertrophy. Septal motion is consistent with conduction abnormality. Moderate global hypokinesis of the left ventricle. Ejection fraction 35 to 40% Cardiology on board Pt was transferred to the ICU for pressor management and inotropic effect Levophed and dobutamine discontinued case discussed with nephrology that recommended to increase lasix to 40mg BID Clinically improved Monitor I/O and continue fluid restriction Hypotension BP stable Off Levophed and dobutamine drip for more than 24hrs BP has been stable Continue monitor BP Staghorn calculus Calculus of proximal left ureter CT abd/pelvis showed 3 cm staghorn left renal calculus. Obstructing 18 x 7 x 7 mm left UPJ calculus Urology on board S/P stent placement Left ureteral stent on 03/05 Will need percutaneous nephrolithotomy in the future at a tertiary center or ureteroscopy there due to her multiple comorbidities as per urology Continue to hold abx for now since urine and blood cx no growth Continue monitor Acute on chronic renal insufficiency Baseline creatinine was 1.4 in 2019 Creatinine slowly trending down to 2.4 today Nephrology on board Discussed dialysis with patient, but pt declined at first, but now she reconsiders it if needed Avoid nephrotoxic agents Continue monitor BMP Transaminitis Possible related to fluid overload vs medication Liver enzymes trending down with AST from 1055->356--> 254->143-> 77, ALT from 678-> 550-->473->351 ->260 and ALK from 370 to 248->232->198->185 Acetaminophen level less than 2 CT abd/pelvis showed unenhanced liver is normal in size, contour, and attenuation. There is no intrahepatic biliary ductal dilatation. MRCP showed o intra- or extrahepatic biliary ductal dilatation, and no choledocholithiasis. Elevated ammonia Level N-Acetylcysteine was given lactulose discontinue Gastro on board Rocephin, statin and amiodarone discontinued Continue to avoid hepatotoxic agents Continue monitor Liver enzymes Atrial fibrillation: S/P watchman procedure rate improved Started on Low dose metoprolol 12.5 mg BID due to low BP If BP stable, will consider to increase metoprolol to 25mg BID Continue aspirin for now Continue monitor closely Amiodarone was discontinued Continue metoprolo Hyperkalemia Potassium dropped from 5.8 to 5.2 ->3.6->4.2 today Continue monitor resolved Hypothyroidism Elevated TSH possible related to acute illness Continue Levothyroxine Will need to repeat TSH in 4 weeks Elevated INR Due to Liver failure received Vit K, INR 1.2 today No sign of active bleeding Continue monitor INR History of seizures Continue Keppra. Will transition to PO keppra in am History of colon cancer Status post partial removal of colon in 2012. Deep venous thrombosis prophylaxis elevated INR . CODE STATUS FULL CODE Disposition Continue monitor in PCU Admission and Anticipated Discharge Date Admission Date: March 04, 2021 Subjective Pt was seen and examined for follow up of renal failure and fluid overload Lying in bed with no distress resting comfortable Pt said that she is feeling much better Blood pressure has been stable since off pressors She has nose bleeding this morning due to the dry nose from the oxygen Denies any chest pain, dizziness, fever and SOB Review of Systems Review of Systems: All systems reviewed & are unremarkable except as noted in Subjective Physical Exam Physical Exam: General- No acute distress Head- atraumatic Eyes- PERRL, EOMI, ENT- oropharynx clear Neck- supple, no JVD Lungs- clear to auscultation Heart- irregular rhythm; Abdomen- normal bowel sounds, soft, nontender Extremities- no calf tenderness, +edema B/L Neuro- alert, oriented x 3; PERRL, EOMI; no facial palsy; no dysarthria Skin- warm & dry Results & Data Results & Data ([facility]) Vital Signs (Past 12 Hours) Vital Signs Temp Pulse Resp BP BP Pulse Ox 03/10/21 15:48 36.5 C 99 H 19 124/61 95 03/10/21 07:43 36.7 C 101 H 16 137/65 92 03/10/21 06:45 145 H 123/55 L
[2021-03-10] MEDS: levETIRAcetam 500 MG in 0.9 % SODIUM CHLORIDE 100 ML IV SCH (21:02)
[2021-03-11] MEDS: LEVOTHYROXINE SODIUM 75 MCG TABLET PO SCH (06:04)
[2021-03-11 07:11] LABS: Albumin Globulin Ratio 0.6 (0.9-2); BUN Creatinine Ratio 27.7 (10-20); Bilirubin,Total 0.9 mg/dl (0.2-1); Calcium 7.6 mg/dl (8.5-10.1); Creatinine Clr Calc Pharmacy 19.9 ml/min; Est GFR (African American) 29.1; Est GFR (Non-African American) 25.1; Globulin 3.4 gm/dl (2.5-4.0); Potassium 3.5 mmol/L (3.5-5.1); Total Protein 5.4 gm/dl (6.4-8.2)
[2021-03-11] MEDS: MULTIVITAMIN TAB PO SCH (08:31)
[2021-03-11] MEDS: CHOLECALCIFEROL 1,000 UNITS 25 MCG TAB PO SCH (08:31)
[2021-03-11] MEDS: METOPROLOL SUCC 25MG EXT REL TAB PO SCH ×2 (08:32→20:24)
[2021-03-11] MEDS: ASPIRIN 81 MG ECTAB PO SCH (08:32)
[2021-03-11] MEDS: FUROSEMIDE 40 MG in SYRINGE 0 ML IV SCH (08:32)
[2021-03-11] MEDS: FAMOTIDINE 20 MG TAB PO SCH (08:33)
--- NOTE | 2021-03-11 12:01 | Nephrology Progress Note ---
Date of Service March 11, 2021 Assessment & Plan Admission and Anticipated Discharge Date Admission Date: March 04, 2021 Subjective NEPHROLOGY PROGRESS NOTE SUBJECTIVE: Overnight, no new issues. She is weak and does have significant bilateral lower extremity edema, but does not complain of any more shortness of breath than usual. She made about 2600 mL of urine yesterday. OBJECTIVE: VITAL SIGNS: Blood pressure is 137/65, pulse rate 101, temperature 36.7, 92% on 1 liter nasal cannula. HEENT: Mucous membrane moist. NECK: Supple. No jugular venous distention is present. CHEST: Bilateral decreased breath sounds, occasional crackles. CARDIOVASCULAR: S1, S2, regular. Soft systolic murmur heard. ABDOMEN: Soft, nontender. EXTREMITIES: Shows 2+ pitting edema bilaterally. LABORATORY TESTS: reviewed. ASSESSMENT AND PLAN: Acute on chronic renal failure, prior baseline creatinine was 1.4. Creatinine on presentation was 2.6. Peaked at high 4s and low 4s, but for the last few days it has been trending down again. Acute kidney injury is consistent with ATN with some contribution from cardiorenal syndrome as well as obstructive uropathy. She is making good urine output, although she still appears quite fluid overloaded. RECOMMENDATIONS: 1. Continue Lasix to 40 mg IV twice daily. 2. Continue input output charting. 3. Continue daily labs. Kidney stone, she had obstructing left stone plus left staghorn calculus, status post 03/05/2021 left ureteral stent. She will later need definitive therapy of the staghorn calculus [facility]. 4 Reviewed cards note--GIven Severe RT heart Failure and Pulm HTN with TR--hard to manage fluid status. Results & Data ([facility]) Vital Signs (Past 12 Hours) Vital Signs Temp Pulse Pulse Resp BP Pulse Ox 03/11/21 11:30 36.5 C 95 H 19 103/68 94 03/11/21 08:10 36.8 C 92 H 20 118/68 91 03/11/21 04:06 36.7 C 79 20 115/76 97 03/11/21 01:46 124 H
--- NOTE | 2021-03-11 16:10 | Cardiology Progress Note ---
Date of Service March 11, 2021 Assessment & Plan (1) Acute on chronic systolic heart failure: Patient is a complex 80-year-old female as outlined previously followed at [facility]/ [place] cardiology with underlying issues including longstanding cardiomyopathy, paroxysmal question persistent atrial fibrillation with recent hospitalization with atrial fibrillation with rapid response. She remains in atrial fibrillation per review of records appears to be plans for long-term rate control. Underwent watchman procedure to mitigate use of anticoagulants in the past. Current complaining of edema with only mild volume overload on exam no signs of hypoxia or pulmonary edema. Heart rate relatively well controlled. Current course complicated by acute on chronic renal failure possibly secondary to obstructive uropathy Repeat echocardiogram performed 03/06/2021 demonstrates ejection fraction of 25 to 30% but notable further enlargement of the right ventricle and severe right ventricular dysfunction. There is severe tricuspid insufficiency correlating with patient's hepatic congestion and elevated hepatic enzyme Pulmonary hypertension noted on previous echo as per review of outpatient records. Have reached out to primary spreader operator automatic but contact still pending Suspect a component of chronic right heart failure with mitral intracuspid insufficiency potentially recently worsened by relapse into atrial fibrillation. Thromboembolic disease not completely excluded Recommendations: At this point I do not believe the patient is volume overloaded any longer. We will discontinue IV Lasix and start torsemide 20 mg every morning and possibly twice daily. Will supplement potassium at this time. Okay to transfer to floor or to home from a cardiac standpoint. Will require close follow-up with her primary spreader operator automatic upon discharge. (2) Atrial fibrillation: Rates now well controlled. Given the clinical context I do not believe we will be able to achieve sinus rhythm at this point. We will initiate warfarin at this time. (3) Acute on chronic renal insufficiency: (4) Staghorn calculus: Admission and Anticipated Discharge Date Admission Date: March 04, 2021 Subjective Patient seen and examined chart reviewed. States that her breathing is doing well and appears to be back to baseline. She is looking forward discharge charge. She was able to ambulate this a.m. without any dyspnea. Denies chest pain, palpitations, lightheadedness or dizziness. Atrial fibrillation fibrillation rate controlled in the 70s to 90s. Review of Systems Review of Systems: All systems reviewed & are unremarkable except as noted in HPI & below Physical Exam Physical Exam: General: Awake, alert and oriented x 3. No acute distress. HEENT: Normocephalic, atraumatic. Pupils equal, round and reactive to light and accommodation. Extraocular muscles are intact. Anicteric sclera. Moist mucous membranes. Neck: No JVD. No bruit. Cardiovascular: irregularly irregular, unable to appreciate murmur, rub or gallop. Pulmonary: Clear to auscultation bilaterally. No rales, rhonchi, or wheezing. Abdomen: Bowel sounds x 4, soft. No rebound, guarding or tenderness. No organomegaly. Extremities: No clubbing, cyanosis or edema. +2 pedal pulses bilaterally. Skin: Warm and dry. Results & Data ([facility]) Vital Signs (Past 12 Hours) Vital Signs Temp Pulse Resp BP Pulse Ox 03/11/21 15:12 36.9 C 74 16 128/56 L 97 03/11/21 11:30 36.5 C 95 H 19 103/68 94 03/11/21 08:10 36.8 C 92 H 20 118/68 91
[2021-03-11] MEDS ORDERED: WARFARIN SOD 5 MG TAB PO ONE (16:30)
[2021-03-11] MEDS: POTASSIUM CHLORIDE CRTAB 20 MEQ TABCR PO SCH (17:05)
--- NOTE | 2021-03-11 17:40 | Hospitalist Progress Note ---
Date of Service March 11, 2021 Assessment & Plan (1) Acute on chronic systolic heart failure: Right heart failure Present on admission with b/l LE edema was recently admitted at [facility]/ [place] cardiology with underlying issues including longstanding cardiomyopathy, afib CXR showed cardiomegaly and radiographic evidence of mild distal failure/fluid overload. Small right pleural effusion. ECHO in this admission showed left ventricle is normal in size. Moderate concentric left ventricular hypertrophy. Septal motion is consistent with conduction abnormality. Moderate global hypokinesis of the left ventricle. Ejection fraction 35 to 40% Cardiology on board Pt was transferred to the ICU for pressor management and inotropic effect Levophed and dobutamine discontinued Case discussed with nephrology that recommended to continue IV lasix 40mg BID as per [facility] Cardiology d/c lasix and started on Torsemide 20mg Clinically improved Monitor I/O and continue fluid restriction Hypotension BP stable Off Levophed and dobutamine drip for more than 24hrs BP has been stable Continue monitor BP Staghorn calculus Calculus of proximal left ureter CT abd/pelvis showed 3 cm staghorn left renal calculus. Obstructing 18 x 7 x 7 mm left UPJ calculus Urology on board S/P stent placement Left ureteral stent on 03/05 Will need percutaneous nephrolithotomy in the future at a tertiary center or ureteroscopy there due to her multiple comorbidities as per urology Continue to hold abx for now since urine and blood cx no growth Continue monitor Acute on chronic renal insufficiency Baseline creatinine was 1.4 in 2019 Creatinine continue slowly trending down to 1.8 today Nephrology on board Discussed dialysis with patient, but pt declined at first, but now she reconsiders it if needed Avoid nephrotoxic agents Continue monitor BMP Transaminitis Possible related to fluid overload vs medication Liver enzymes trending down with AST from 1055->356--> 254->143-> 77->46, ALT from 678-> 550-->473->351 ->260->166 and ALK from 370 to 248->232->198->185 - >160 Acetaminophen level less than 2 CT abd/pelvis showed unenhanced liver is normal in size, contour, and attenuation. There is no intrahepatic biliary ductal dilatation. MRCP showed o intra- or extrahepatic biliary ductal dilatation, and no choledocholithiasis. Elevated ammonia Level N-Acetylcysteine was given lactulose discontinue Gastro on board Rocephin, statin and amiodarone discontinued Continue to avoid hepatotoxic agents Continue monitor Liver enzymes Atrial fibrillation: S/P watchman procedure rate improved Started on Low dose metoprolol 12.5 mg BID due to low BP If BP stable, will consider to increase metoprolol to 25mg BID Continue aspirin for now Continue monitor closely Amiodarone was discontinued Continue metoprolol Starting on Coumadin 5mg Monitor PT/INR Hyperkalemia Potassium dropped from 5.8 to 5.2 ->3.6->4.2->3.5 today Continue monitor resolved Hypothyroidism Elevated TSH possible related to acute illness Continue Levothyroxine Will need to repeat TSH in 4 weeks Elevated INR Due to Liver failure received Vit K, INR 1.2 today No sign of active bleeding Continue monitor INR History of seizures Continue Keppra. Will transition to PO keppra in am History of colon cancer Status post partial removal of colon in 2012. Deep venous thrombosis prophylaxis Elevated INR . CODE STATUS FULL CODE Disposition Will discharge once medically stable Admission and Anticipated Discharge Date Admission Date: March 04, 2021 Subjective Pt was seen and examined for follow up of fluid overload Sitting in bed with no distress Pt said that she feels much better She said that her strength is getting much better Denies any chest pain, palpitation, dizziness and SOB Review of Systems Review of Systems: All systems reviewed & are unremarkable except as noted in Subjective Physical Exam Physical Exam: General- No acute distress Head- atraumatic Eyes- PERRL, EOMI, ENT- oropharynx clear Neck- supple, no JVD Lungs- clear to auscultation Heart- irregular rhythm; Abdomen- normal bowel sounds, soft, nontender Extremities- no calf tenderness, +edema B/L Neuro- alert, oriented x 3; PERRL, EOMI; no facial palsy; no dysarthria Skin- warm & dry Results & Data Results & Data ([facility]) Vital Signs (Past 12 Hours) Vital Signs Temp Pulse Resp BP Pulse Ox 03/11/21 15:12 36.9 C 74 16 128/56 L 97 03/11/21 11:30 36.5 C 95 H 19 103/68 94 03/11/21 08:10 36.8 C 92 H 20 118/68 91
[2021-03-11] MEDS: levETIRAcetam 500 MG TAB PO SCH (20:24)
[2021-03-12] MEDS: LEVOTHYROXINE SODIUM 75 MCG TABLET PO SCH (05:44)
[2021-03-12 06:33] LABS: INR 1.2 (0.9-1.1); Prothrombin Time 12.2 Seconds (9.0-12.0)
[2021-03-12 06:46] LABS: Albumin Level 1.9 gm/dl (3.4-5.0); BUN Creatinine Ratio 28.6 (10-20); Creatinine Clr Calc Pharmacy 23.7 ml/min; Est GFR (Non-African American) 31.1
[2021-03-12 06:51] LABS: Albumin Globulin Ratio 0.5 (0.9-2); Bilirubin,Total 0.9 mg/dl (0.2-1); Globulin 3.5 gm/dl (2.5-4.0); Total Protein 5.4 gm/dl (6.4-8.2)
[2021-03-12] MEDS: CHOLECALCIFEROL 1,000 UNITS 25 MCG TAB PO SCH (07:52)
[2021-03-12] MEDS: MULTIVITAMIN TAB PO SCH (07:52)
[2021-03-12] MEDS: ASPIRIN 81 MG ECTAB PO SCH (07:52)
[2021-03-12] MEDS: TORSEMIDE 10 MG TAB PO SCH (07:52)
[2021-03-12] MEDS: levETIRAcetam 500 MG TAB PO SCH ×2 (07:53→20:18)
[2021-03-12] MEDS: METOPROLOL SUCC 25MG EXT REL TAB PO SCH ×2 (07:53→20:18)
[2021-03-12] MEDS: FAMOTIDINE 20 MG TAB PO SCH (07:53)
[2021-03-12] MEDS: POTASSIUM CHLORIDE CRTAB 20 MEQ TABCR PO SCH ×2 (07:54→09:56)
--- NOTE | 2021-03-12 08:50 | Hospitalist Progress Note ---
Date of Service March 12, 2021 Assessment & Plan (1) Acute on chronic systolic heart failure: Right heart failure Present on admission with b/l LE edema was recently admitted at [facility]/ [place] cardiology with underlying issues including longstanding cardiomyopathy, afib CXR showed cardiomegaly and radiographic evidence of mild distal failure/fluid overload. Small right pleural effusion. ECHO in this admission showed left ventricle is normal in size. Moderate concentric left ventricular hypertrophy. Septal motion is consistent with conduction abnormality. Moderate global hypokinesis of the left ventricle. Ejection fraction 35 to 40% Cardiology on board Pt was transferred to the ICU for pressor management and inotropic effect Levophed and dobutamine discontinued Case discussed with nephrology that recommended to continue IV lasix 40mg BID as per [facility] Cardiology d/c lasix and started on Torsemide 20mg Clinically improved Monitor I/O and continue fluid restriction Per cardiology: repeat echocardiogram performed 03/06/2021 demonstrates ejection fraction of 25 to 30% but notable further enlargement of the right ventricle and severe right ventricular dysfunction. There is severe tricuspid insufficiency correlating with patient's hepatic congestion and elevated hepatic enzyme Pulmonary hypertension noted on previous echo as per review of outpatient records. Have reached out to primary straight truck driver but contact still pending Suspect a component of chronic right heart failure with mitral and tricuspid insufficiency potentially recently worsened by relapse into atrial fibrillation. Thromboembolic disease not completely excluded Recommendations: Given her severe preload dependence would not diuresis any more aggressively at this time. Her heart rates have increased but her blood pressure at the same time is decreased so we will hold off on further up titration of her beta-blockade. Continue warfarin. Okay to DC to home from a cardiac standpoint. Recommend close follow-up with primary straight truck driver. Hypotension BP stable/ low Off Levophed and dobutamine drip for more than 24hrs Continue monitor BP Staghorn calculus Calculus of proximal left ureter CT abd/pelvis showed 3 cm staghorn left renal calculus. Obstructing 18 x 7 x 7 mm left UPJ calculus Urology on board S/P stent placement Left ureteral stent on 03/05 Will need percutaneous nephrolithotomy in the future at a tertiary center or ureteroscopy there due to her multiple comorbidities as per urology Outpatient urology follow up w/ Dr. Fortune set up already Continue to hold abx for now since urine and blood cx no growth Continue monitor Acute on chronic renal insufficiency Baseline creatinine was 1.4 in 2019 Creatinine continue slowly trending down to 1.5 today Nephrology on board Discussed dialysis with patient, but pt declined at first, but now she reconsiders it if needed Avoid nephrotoxic agents Continue monitor BMP Transaminitis Possible related to fluid overload vs medication Liver enzymes trending down with AST from 1055->356--> 254->143-> 77->46, ALT from 678-> 550-->473->351 ->260->166 and ALK from 370 to 248->232->198->185 - >160 Acetaminophen level less than 2 CT abd/pelvis showed unenhanced liver is normal in size, contour, and attenuation. There is no intrahepatic biliary ductal dilatation. MRCP showed o intra- or extrahepatic biliary ductal dilatation, and no choledoch olithiasis. Elevated ammonia Level N-Acetylcysteine was given lactulose discontinue Gastro on board Rocephin, statin and amiodarone discontinued Continue to avoid hepatotoxic agents Continue monitor Liver enzymes Atrial fibrillation: S/P watchman procedure rate improved Started on Low dose metoprolol 12.5 mg BID due to low BP If BP stable, will consider to increase metoprolol to 25mg BID Continue aspirin for now Continue monitor closely Amiodarone was discontinued Continue metoprolol Starting on Coumadin 5mg Monitor PT/INR Hyperkalemia Potassium dropped from 5.8 to 5.2 ->3.6->4.2->3.5 today Continue monitor resolved Hypothyroidism Elevated TSH possible related to acute illness Continue Levothyroxine Will need to repeat TSH in 4 weeks Elevated INR Due to Liver failure received Vit K, INR 1.2 today No sign of active bleeding Continue monitor INR History of seizures Continue Keppra. Transitioned to PO keppra History of colon cancer Status post partial removal of colon in 2012. DVT prophylaxis Elevated INR , now SCDs, warfarin started. CODE STATUS FULL CODE Disposition Will discharge once medically stable Admission and Anticipated Discharge Date Admission Date: March 04, 2021 Subjective Pt was seen and examined for follow up of fluid overload, CHF, Afib w/ RVR and other med. problems Sitting in chair in no distress Pt said that she feels much better Denies any chest pain, palpitation, dizziness and SOB Continues to be in A. fib, rate control variable, currently more tachycardic. Nephrology and cardiology following. Review of Systems Review of Systems: All systems reviewed & are unremarkable except as noted in HPI & below Constitutional: no fever and no chills Respiratory: + cough and + dyspnea (much improved) Cardiovascular: no chest pain and no palpitations Gastrointestinal: no abdominal pain, no nausea and no vomiting Physical Exam Physical Exam: General- No acute distress Head- atraumatic Eyes- PERRL, EOMI, ENT- oropharynx clear Neck- supple, no JVD Lungs- clear to auscultation w/ mild bibasilar crackles Heart- irregular rhythm; tachycardic Abdomen- normal bowel sounds, soft, nontender Extremities- no calf tenderness, +edema B/L, moves extremities Neuro- alert, oriented x 3; PERRL, EOMI; no facial palsy; no dysarthria Skin- warm & dry Results & Data Results & Data ([facility]) Vital Signs (Past 12 Hours) Vital Signs Temp Pulse Pulse Resp BP BP Pulse Ox 03/12/21 07:02 36.9 C 81 20 113/62 94 03/12/21 04:08 36.5 C 97 H 24 122/83 94 03/11/21 23:28 115 H 03/11/21 23:25 36.9 C 104 H 20 102/70 93 Laboratory Results 03/12/21 03/12/21 Range/Units 05:49 05:49 PT 12.2 H (9.0-12.0) Seconds INR 1.2 H (0.9-1.1) Sodium 139 (136-145) mmol/L Potassium 4.0 (3.5-5.1) mmol/L Chloride 100 (98-107) mmol/L Carbon Dioxide 36 H (21-32) mmol/L Anion Gap 3.0 (3-11) BUN 44 H (7-18) mg/dl Creatinine 1.54 H D (0.6-1.2) mg/dl Est Cr Clr Drug Dosing 23.7 ml/min Est GFR ( Amer) 36.0 Est GFR (Non-Af Amer) 31.1 BUN/Creatinine Ratio 28.6 H (10-20) Glucose 98 (70-99) mg/dl Calcium 8.0 L (8.5-10.1) mg/dl Total Bilirubin 0.9 (0.2-1) mg/dl AST 29 (15-37) U/L ALT 116 H (12-78) U/L Alkaline Phosphatase 140 H (45-117) U/L Total Protein 5.4 L (6.4-8.2) gm/dl Albumin 1.9 L (3.4-5.0) gm/dl Globulin 3.5 (2.5-4.0) gm/dl Albumin/Globulin Ratio 0.5 L (0.9-2) Medications Administered Current Inpatient Medications Acetaminophen (Acetaminophen 325 Mg Tab) 650 mg PO Q4H PRN PRN Reason: Pain or Fever Stop: 04/03/21 06:28 Aspirin (Aspirin 81 Mg Ectab) [facility] [place] Stop: 04/03/21 08:59 Last Admin: 03/12/21 07:52 Dose: 81 mg Documented by: Famotidine (Famotidine 20 Mg Tab) 20 mg PO QAM [facility] Stop: 04/08/21 08:59 Last Admin: 03/12/21 07:53 Dose: 20 mg Documented by: Levetiracetam (Levetiracetam 500 Mg Tab) 500 mg PO BID [facility] Stop: 04/10/21 20:59 Last Admin: 03/12/21 07:53 Dose: 500 mg Documented by: Levothyroxine Sodium (Levothyroxine Sodium 75 Mcg Tablet) 75 mcg PO DAILYBB [facility] Stop: 04/03/21 06:44 Last Admin: 03/12/21 05:44 Dose: 75 mcg Documented by: Metoprolol Succinate (Metoprolol Succ 25mg Ext Rel Tab) 12.5 mg PO BID [facility] Stop: 04/09/21 08:59 Last Admin: 03/12/21 07:53 Dose: 12.5 mg Documented by: Multivitamins (Multivitamin Tab) 1 tab PO DAILY [facility] Stop: 04/03/21 08:59 Last Admin: 03/12/21 07:52 Dose: 1 tab Documented by: Nitroglycerin (Nitroglycerin Sl 0.4 Mg/Tab Tab) 0.4 mg SL UD PRN PRN Reason: Chest Pain Stop: 04/03/21 06:28 Ondansetron HCl (Ondansetron Inj 2 Mg/Ml 2 Ml Vial) 4 mg IV Q6H PRN PRN Reason: Nausea Stop: 04/03/21 06:28 Polyethylene Glycol (Polyethylene (Miralax) 17 Gm Pack) 17 gm PO DAILY PRN PRN Reason: Constipation Stop: 04/03/21 06:28 Last Admin: 03/10/21 22:58 Dose: 17 gm Documented by: Potassium Chloride (Potassium Chloride Crtab 20 Meq Tabcr) 40 meq PO QAM [facility] Stop: 04/10/21 16:14 Last Admin: 03/12/21 07:54 Dose: 40 meq Documented by: Torsemide (Torsemide 10 Mg Tab) 20 mg PO QAM [facility] Stop: 04/11/21 08:59 Last Admin: 03/12/21 07:52 Dose: 20 mg Documented by: Vitamin D (Cholecalciferol 1,000 Units 25 Mcg Tab) 1,000 units PO DAILY [facility] Stop: 04/03/21 08:59 Last Admin: 03/12/21 07:52 Dose: 1,000 units Documented by: Warfarin Sodium (Warfarin Sod 5 Mg Tab) 5 mg PO DAILY@1600 [facility] Stop: 04/11/21 15:59
[2021-03-12] MEDS ORDERED: levETIRAcetam 500 MG TAB PO SCH (09:00)
--- NOTE | 2021-03-12 10:00 | Nephrology Progress Note ---
Date of Service March 12, 2021 Assessment & Plan Admission and Anticipated Discharge Date Admission Date: March 04, 2021 Subjective SUBJECTIVE: Overnight, no new issues. She is weak and does have significant bilateral lower extremity edema, but does not complain of any more shortness of breath than usual. making good amount of urine OBJECTIVE: VITAL SIGNS: Blood pressure is 137/65, pulse rate 101, temperature 36.7, 92% on 1 liter nasal cannula. HEENT: Mucous membrane moist. NECK: Supple. No jugular venous distention is present. CHEST: Bilateral decreased breath sounds, occasional crackles. CARDIOVASCULAR: S1, S2, regular. Soft systolic murmur heard. ABDOMEN: Soft, nontender. EXTREMITIES: Shows 2+ pitting edema bilaterally. LABORATORY TESTS: reviewed. ASSESSMENT AND PLAN: Acute on chronic renal failure, prior baseline creatinine was 1.4. Creatinine on presentation was 2.6. Peaked at high 4s and low 4s, but for the last few days it has been trending down again. Acute kidney injury is consistent with ATN with some contribution from cardiorenal syndrome as well as obstructive uropathy. She is making good urine output, although she still appears quite fluid overloaded. RECOMMENDATIONS: 1. continue torsemide 20 daily. Discussed with cards. 2. Continue input output charting. 3. Continue daily labs. Kidney stone---she had obstructing left stone plus left staghorn calculus, status post 03/05/2021 left ureteral stent. She will later need definitive [facility] of the staghorn calculus [facility] 4 Reviewed cards note--Given Severe RT heart Failure and Pulm HTN with TR--hard to manage fluid status. Results & Data ([facility]) Vital Signs (Past 12 Hours) Vital Signs Temp Pulse Pulse Resp BP BP Pulse Ox 03/12/21 07:02 36.9 C 81 20 113/62 94 03/12/21 04:08 36.5 C 97 H 24 122/83 94 03/11/21 23:28 115 H 03/11/21 23:25 36.9 C 104 H 20 102/70 93
--- NOTE | 2021-03-12 13:29 | Cardiology Progress Note ---
Date of Service March 12, 2021 Assessment & Plan (1) Acute on chronic systolic heart failure: Patient is a complex 80-year-old female as outlined previously followed at [facility]/ [place] cardiology with underlying issues including longstanding cardiomyopathy, paroxysmal question persistent atrial fibrillation with recent hospitalization with atrial fibrillation with rapid response. She remains in atrial fibrillation per review of records appears to be plans for long-term rate control. Underwent watchman procedure to mitigate use of anticoagulants in the past. Current complaining of edema with only mild volume overload on exam no signs of hypoxia or pulmonary edema. Heart rate relatively well controlled. Current course complicated by acute on chronic renal failure possibly secondary to obstructive uropathy Repeat echocardiogram performed 03/06/2021 demonstrates ejection fraction of 25 to 30% but notable further enlargement of the right ventricle and severe right ventricular dysfunction. There is severe tricuspid insufficiency correlating with patient's hepatic congestion and elevated hepatic enzyme Pulmonary hypertension noted on previous echo as per review of outpatient records. Have reached out to primary chimney supervisor brick but contact still pending Suspect a component of chronic right heart failure with mitral intracuspid insufficiency potentially recently worsened by relapse into atrial fibrillation. Thromboembolic disease not completely excluded Recommendations: Patient diuresed an additional 1 L overnight after switching to oral diuretics. Given her severe preload dependence would not diuresis any more aggressively at this time. Her heart rates have increased but her blood pressure at the same time is decreased so we will hold off on further up titration of her beta-blockade. Continue warfarin. Okay to DC to home from a cardiac standpoint. Recommend close follow-up with primary chimney supervisor brick. (2) Atrial fibrillation: Rates now well controlled. Given the clinical context I do not believe we will be able to achieve sinus rhythm at this point. We will initiate warfarin at this time. (3) Acute on chronic renal insufficiency: (4) Staghorn calculus: Admission and Anticipated Discharge Date Admission Date: March 04, 2021 Subjective Patient seen and examined, chart reviewed. States that she is feeling relatively well and other than being weak feels back to baseline. Denies chest pain, shortness of breath, palpitations, lightheadedness, dizziness or syncope. Telemetry reviewed: Atrial fibrillation with variable rate control. Review of Systems Review of Systems: All systems reviewed & are unremarkable except as noted in HPI & below Physical Exam Physical Exam: General: Awake, alert and oriented x 3. No acute distress. HEENT: Normocephalic, atraumatic. Pupils equal, round and reactive to light and accommodation. Extraocular muscles are intact. Anicteric sclera. Moist mucous membranes. Neck: No JVD. No bruit. Cardiovascular: irregularly irregular, unable to appreciate murmur, rub or gallop. Pulmonary: Clear to auscultation bilaterally. No rales, rhonchi, or wheezing. Abdomen: Bowel sounds x 4, soft. No rebound, guarding or tenderness. No organomegaly. Extremities: No clubbing, cyanosis or edema. +2 pedal pulses bilaterally. Skin: Warm and dry. Results & Data ([facility]) Vital Signs (Past 12 Hours) Vital Signs Temp Pulse Resp BP BP Pulse Ox 03/12/21 11:41 36.3 C L 112 H 20 106/69 99 03/12/21 07:02 36.9 C 81 20 113/62 94 03/12/21 04:08 36.5 C 97 H 24 122/83 94
[2021-03-12] MEDS: WARFARIN SOD 5 MG TAB PO SCH (16:45)
[2021-03-13] MEDS: LEVOTHYROXINE SODIUM 75 MCG TABLET PO SCH (06:05)
[2021-03-13 08:07] LABS: Hematocrit (blood only) 33.5 % (37-47); Hemoglobin 10.7 g/dL (12.0-16.0); Mean Corpuscular Hemoglobin 29.2 pg (25-34); Mean Corpuscular Hgb Conc 31.9 g/dL (32-36); Mean Corpuscular Volume 91.5 fL (80-100); Mean Platelet Volume 10.3 fL (7.4-10.4); Platelet Count 179 K/uL (130-400); RDW Coefficient of Variation 17.4 % (11.5-14.5); RDW Standard Deviation 57.6 fL (36.4-46.3); Red Blood Count 3.66 M/uL (4.2-5.4); White Blood Count 11.14 K/uL (4.8-10.8)
[2021-03-13 08:18] LABS: INR 2.4 (0.9-1.1); Prothrombin Time 22.4 Seconds (9.0-12.0)
[2021-03-13 08:34] LABS: BUN Creatinine Ratio 31.7 (10-20); Calcium 8.3 mg/dl (8.5-10.1); Creatinine Clr Calc Pharmacy 30.1 ml/min; Est GFR (African American) 45.9; Est GFR (Non-African American) 39.6; Potassium 4.3 mmol/L (3.5-5.1)
[2021-03-13] MEDS: MULTIVITAMIN TAB PO SCH (09:07)
[2021-03-13] MEDS: FAMOTIDINE 20 MG TAB PO SCH (09:07)
[2021-03-13] MEDS: CHOLECALCIFEROL 1,000 UNITS 25 MCG TAB PO SCH (09:07)
[2021-03-13] MEDS: TORSEMIDE 10 MG TAB PO SCH (09:07)
[2021-03-13] MEDS: METOPROLOL SUCC 25MG EXT REL TAB PO SCH ×3 (09:08→23:52)
[2021-03-13] MEDS: POTASSIUM CHLORIDE CRTAB 20 MEQ TABCR PO SCH (09:08)
[2021-03-13] MEDS: levETIRAcetam 500 MG TAB PO SCH ×2 (09:08→22:15)
[2021-03-13] MEDS: ASPIRIN 81 MG ECTAB PO SCH (09:40)
--- NOTE | 2021-03-13 13:05 | Hospitalist Progress Note ---
Date of Service March 13, 2021 Assessment & Plan (1) Acute on chronic systolic heart failure: Right heart failure Present on admission with b/l LE edema was recently admitted at [facility]/ [place] cardiology with underlying issues including longstanding cardiomyopathy, afib CXR showed cardiomegaly and radiographic evidence of mild distal failure/fluid overload. Small right pleural effusion. ECHO in this admission showed left ventricle is normal in size. Moderate concentric left ventricular hypertrophy. Septal motion is consistent with conduction abnormality. Moderate global hypokinesis of the left ventricle. Ejection fraction 35 to 40% Cardiology on board Pt was transferred to the ICU for pressor management and inotropic effect Levophed and dobutamine discontinued Case discussed with nephrology that recommended to continue IV lasix 40mg BID as per [facility] Cardiology d/c lasix and started on Torsemide 20mg Clinically improved Monitor I/O and continue fluid restriction Per cardiology: repeat echocardiogram performed 03/06/2021 demonstrates ejection fraction of 25 to 30% but notable further enlargement of the right ventricle and severe right ventricular dysfunction. There is severe tricuspid insufficiency correlating with patient's hepatic congestion and elevated hepatic enzyme Pulmonary hypertension noted on previous echo as per review of outpatient records. Have reached out to primary oracle manager but contact still pending Suspect a component of chronic right heart failure with mitral and tricuspid insufficiency potentially recently worsened by relapse into atrial fibrillation. Thromboembolic disease not completely excluded Recommendations: Given her severe preload dependence would not diuresis any more aggressively at this time. Her heart rates have increased but her blood pressure at the same time is decreased so we will hold off on further up titration of her beta-blockade. Continue warfarin. Okay to DC to home from a cardiac standpoint. Recommend close follow-up with primary oracle manager. Primary oracle manager office contacted, appointment scheduled for March 21 Hypotension BP stable/ low Off Levophed and dobutamine drip Continue monitor BP Staghorn calculus Calculus of proximal left ureter CT abd/pelvis showed 3 cm staghorn left renal calculus. Obstructing 18 x 7 x 7 mm left UPJ calculus Urology on board S/P stent placement Left ureteral stent on 03/05 Will need percutaneous nephrolithotomy in the future at a tertiary center or ureteroscopy there due to her multiple comorbidities as per urology Outpatient urology follow up w/ Dr. Fortune set up already Continue to hold abx for now since urine and blood cx no growth Continue monitor Acute on chronic renal insufficiency Baseline creatinine was 1.4 in 2019 Creatinine continue slowly trending down to 1.3 today Nephrology on board Discussed dialysis with patient, but pt declined at first, but now she reconsiders it if needed Avoid nephrotoxic agents Continue monitor BMP Transaminitis Possible related to fluid overload vs medication Liver enzymes trending down with AST from 1055->356--> 254->143-> 77->46, ALT from 678-> 550-->473->351 ->260->166 and ALK from 370 to 248->232->198->185 ->16 0 Acetaminophen level less than 2 CT abd/pelvis showed unenhanced liver is normal in size, contour, and attenuation. There is no intrahepatic biliary ductal dilatation. MRCP showed o intra- or extrahepatic biliary ductal dilatation, and no choledocholithiasis. Elevated ammonia Level N-Acetylcysteine was given lactulose discontinue Gastro on board Rocephin, statin and amiodarone discontinued Continue to avoid hepatotoxic agents Continue monitor Liver enzymes Atrial fibrillation: S/P watchman procedure rate improved Started on Low dose metoprolol 12.5 mg BID due to low BP If BP stable, will consider to increase metoprolol to 25mg BID Continue aspirin for now Continue monitor closely Amiodarone was discontinued Continue metoprolol Starting on Coumadin 5mg Monitor PT/INR Hyperkalemia Potassium dropped from 5.8 to 5.2 ->3.6->4.2->3.5 today Continue monitor resolved Hypothyroidism Elevated TSH possible related to acute illness Continue Levothyroxine Will need to repeat TSH in 4 weeks Elevated INR Due to Liver failure received Vit K, INR No sign of active bleeding Continue monitor INR Now started on warfarin History of seizures Continue Keppra. Transitioned to PO keppra History of colon cancer Status post partial removal of colon in 2012. DVT prophylaxis Elevated INR , now SCDs, warfarin started. CODE STATUS FULL CODE Disposition Will discharge once medically stable -plan to discharge to rehab/SNF, case management aware Admission and Anticipated Discharge Date Admission Date: March 04, 2021 Subjective Pt was seen and examined for follow up of fluid overload, CHF, Afib w/ RVR and other med. problems Sitting in bed in no distress, eating Pt said that she feels much better, she is not using oxygen anymore but she feels very weak Denies any chest pain, palpitation, dizziness and SOB Discussed possible rehab/SNF, patient is in agreement with that, case management contacted Son Noel updated over the phone Review of Systems Review of Systems: All systems reviewed & are unremarkable except as noted in HPI & below Constitutional: no fever and no chills Respiratory: + cough (improved) and + dyspnea (improved) Cardiovascular: + edema; no chest pain and no palpitations Gastrointestinal: no abdominal pain, no nausea and no vomiting Physical Exam Physical Exam: General- No acute distress Head- atraumatic Eyes- PERRL, EOMI, ENT- oropharynx clear Neck- supple, no JVD Lungs- clear to auscultation w/ mild bibasilar crackles Heart- irregular rhythm; tachycardic Abdomen- normal bowel sounds, soft, nontender Extremities- no calf tenderness, +edema B/L, moves extremities Neuro- alert, oriented x 3; PERRL, EOMI; no facial palsy; no dysarthria Skin- warm & dry Results & Data Results & Data ([facility]) Vital Signs (Past 12 Hours) Vital Signs Temp Pulse Resp BP Pulse Ox 03/13/21 11:44 36.7 C 67 18 99/61 L 93 03/13/21 07:42 36.9 C 86 115/69 95 03/13/21 07:30 18 03/13/21 03:19 37.0 C 86 25 H 106/70 87 L Laboratory Results 03/13/21 03/13/21 03/13/21 Range/Units 07:19 07:19 07:19 WBC 11.14 H (4.8-10.8) K/uL RBC 3.66 L (4.2-5.4) M/uL Hgb 10.7 L (12.0-16.0) g/dL Hct 33.5 L (37-47) % MCV 91.5 (80-100) fL MCH 29.2 (25-34) pg MCHC 31.9 L (32-36) g/dL RDW Std Deviation 57.6 H (36.4-46.3) fL RDW Coeff of Lawrence 17.4 H (11.5-14.5) % Plt Count 179 (130-400) K/uL MPV 10.3 (7.4-10.4) fL PT 22.4 H (9.0-12.0) Seconds INR 2.4 H (0.9-1.1) Sodium 140 (136-145) mmol/L Potassium 4.3 (3.5-5.1) mmol/L Chloride 102 (98-107) mmol/L Carbon Dioxide 36 H (21-32) mmol/L Anion Gap 2.0 L (3-11) BUN 40 H (7-18) mg/dl Creatinine 1.26 H (0.6-1.2) mg/dl Est Cr Clr Drug Dosing 30.1 ml/min Est GFR ( Amer) 45.9 Est GFR (Non-Af Amer) 39.6 BUN/Creatinine Ratio 31.7 H (10-20) Glucose 85 (70-99) mg/dl Calcium 8.3 L (8.5-10.1) mg/dl Medications Administered Current Inpatient Medications Acetaminophen (Acetaminophen 325 Mg Tab) 650 mg PO Q4H PRN PRN Reason: Pain or Fever Stop: 04/03/21 06:28 Aspirin (Aspirin 81 Mg Ectab) 81 mg PO QAM [facility] Stop: 04/03/21 08:59 Last Admin: 03/13/21 09:40 Dose: 81 mg Documented by: Famotidine (Famotidine 20 Mg Tab) 20 mg PO QAM [facility] Stop: 04/08/21 08:59 Last Admin: 03/13/21 09:07 Dose: 20 mg Documented by: Levetiracetam (Levetiracetam 500 Mg Tab) 500 mg PO BID [facility] Stop: 04/10/21 20:59 Last Admin: 03/13/21 09:08 Dose: 500 mg Documented by: Levothyroxine Sodium (Levothyroxine Sodium 75 Mcg Tablet) 75 mcg PO DAILYBB [facility] Stop: 04/03/21 06:44 Last Admin: 03/13/21 06:05 Dose: 75 mcg Documented by: Metoprolol Succinate (Metoprolol Succ 25mg Ext Rel Tab) 12.5 mg PO BID [facility] Stop: 04/09/21 08:59 Last Admin: 03/13/21 09:08 Dose: 12.5 mg Documented by: Multivitamins (Multivitamin Tab) 1 tab PO DAILY [facility] Stop: 04/03/21 08:59 Last Admin: 03/13/21 09:07 Dose: 1 tab Documented by: Nitroglycerin (Nitroglycerin Sl 0.4 Mg/Tab Tab) 0.4 mg SL UD PRN PRN Reason: Chest Pain Stop: 04/03/21 06:28 Ondansetron HCl (Ondansetron Inj 2 Mg/Ml 2 Ml Vial) 4 mg IV Q6H PRN PRN Reason: Nausea Stop: 04/03/21 06:28 Polyethylene Glycol (Polyethylene (Miralax) 17 Gm Pack) 17 gm PO DAILY PRN PRN Reason: Constipation Stop: 04/03/21 06:28 Last Admin: 03/10/21 22:58 Dose: 17 gm Documented by: Potassium Chloride (Potassium Chloride Crtab 20 Meq Tabcr) 20 meq PO QAM [facility] Stop: 04/11/21 08:59 Last Admin: 03/13/21 09:08 Dose: 20 meq Documented by: Torsemide (Torsemide 10 Mg Tab) 20 mg PO QAM [facility] Stop: 04/11/21 08:59 Last Admin: 03/13/21 09:07 Dose: 20 mg Documented by: Vitamin D (Cholecalciferol 1,000 Units 25 Mcg Tab) 1,000 units PO DAILY [facility] Stop: 04/03/21 08:59 Last Admin: 03/13/21 09:07 Dose: 1,000 units Documented by: Warfarin Sodium (Warfarin Sod 5 Mg Tab) 5 mg PO DAILY@1600 [facility] Stop: 04/11/21 15:59 Last Admin: 03/12/21 16:45 Dose: 5 mg Documented by:
--- NOTE | 2021-03-13 13:28 | Cardiology Progress Note ---
Date of Service March 13, 2021 Assessment & Plan (1) Acute on chronic systolic heart failure: Patient is a complex 80-year-old female as outlined previously followed at [facility]/ [place] cardiology with underlying issues including longstanding cardiomyopathy, paroxysmal question persistent atrial fibrillation with recent hospitalization with atrial fibrillation with rapid response. She remains in atrial fibrillation per review of records appears to be plans for long-term rate control. Underwent watchman procedure to mitigate use of anticoagulants in the past. Current complaining of edema with only mild volume overload on exam no signs of hypoxia or pulmonary edema. Heart rate relatively well controlled. Current course complicated by acute on chronic renal failure possibly secondary to obstructive uropathy Repeat echocardiogram performed 03/06/2021 demonstrates ejection fraction of 25 to 30% but notable further enlargement of the right ventricle and severe right ventricular dysfunction. There is severe tricuspid insufficiency correlating with patient's hepatic congestion and elevated hepatic enzyme Pulmonary hypertension noted on previous echo as per review of outpatient records. Have reached out to primary record clerk salesperson but contact still pending Suspect a component of chronic right heart failure with mitral intracuspid insufficiency potentially recently worsened by relapse into atrial fibrillation. Thromboembolic disease not completely excluded Recommendations: Continue daily p.o. torsemide. Given her severe preload dependence would not diuresis any more aggressively at this time. Her heart rates have increased but her blood pressure at the same time is decreased so we will hold off on further up titration of her beta-blockade. Continue warfarin. Okay to DC to home from a cardiac standpoint. Recommend close follow-up with primary record clerk salesperson. (2) Atrial fibrillation: Rates now well controlled. Given the clinical context I do not believe we will be able to achieve sinus rhythm at this point. We will initiate warfarin at this time. (3) Acute on chronic renal insufficiency: (4) Staghorn calculus: Admission and Anticipated Discharge Date Admission Date: March 04, 2021 Subjective Patient seen and examined, chart reviewed. States that she is feeling well today and that her breathing is back to baseline. Was able to do some exercise with physical therapy this a.m. but now significantly fatigued. Denies chest pain, shortness of breath, palpitations, lightheadedness, dizziness or syncope. She is now off supplemental oxygen. Telemetry reviewed: Atrial fibrillation relatively well controlled rates. Review of Systems Review of Systems: All systems reviewed & are unremarkable except as noted in HPI & below Physical Exam Physical Exam: General: Awake, alert and oriented x 3. No acute distress. HEENT: Normocephalic, atraumatic. Pupils equal, round and reactive to light and accommodation. Extraocular muscles are intact. Anicteric sclera. Moist mucous membranes. Neck: No JVD. No bruit. Cardiovascular: irregularly irregular, unable to appreciate murmur, rub or gallop. Pulmonary: Clear to auscultation bilaterally. No rales, rhonchi, or wheezing. Abdomen: Bowel sounds x 4, soft. No rebound, guarding or tenderness. No organomegaly. Extremities: No clubbing, cyanosis or edema. +2 pedal pulses bilaterally. Skin: Warm and dry. Results & Data ([facility]) Vital Signs (Past 12 Hours) Vital Signs Temp Pulse Resp BP Pulse Ox 03/13/21 11:44 36.7 C 67 18 99/61 L 93 03/13/21 07:42 36.9 C 86 115/69 95 03/13/21 07:30 18 03/13/21 03:19 37.0 C 86 25 H 106/70 87 L
[2021-03-13] MEDS: WARFARIN SOD 5 MG TAB PO SCH (16:26)
[2021-03-13] MEDS ORDERED: METOPROLOL TARTRATE 1 MG/ML VIAL IV ONE (17:11)
[2021-03-14] MEDS: METOPROLOL SUCC 25MG EXT REL TAB PO SCH ×2 (06:26→12:22)
[2021-03-14] MEDS: LEVOTHYROXINE SODIUM 75 MCG TABLET PO SCH (06:26)
[2021-03-14 07:35] LABS: INR 5.5 (0.9-1.1); Prothrombin Time 48.9 Seconds (9.0-12.0)
[2021-03-14 07:39] LABS: BUN Creatinine Ratio 26.3 (10-20); Creatinine Clr Calc Pharmacy 28.5 ml/min; Est GFR (African American) 44.2; Est GFR (Non-African American) 38.2; Magnesium 1.8 mg/dl (1.8-2.4); Phosphorus 3.1 mg/dl (2.5-4.9); Potassium 4.5 mmol/L (3.5-5.1)
--- NOTE | 2021-03-14 07:56 | Hospitalist Progress Note ---
Date of Service March 14, 2021 Assessment & Plan (1) Acute on chronic systolic heart failure: Right heart failure Present on admission with b/l LE edema was recently admitted at [facility]/ [place] cardiology with underlying issues including longstanding cardiomyopathy, afib CXR showed cardiomegaly and radiographic evidence of mild distal failure/fluid overload. Small right pleural effusion. ECHO in this admission showed left ventricle is normal in size. Moderate concentric left ventricular hypertrophy. Septal motion is consistent with conduction abnormality. Moderate global hypokinesis of the left ventricle. Ejection fraction 35 to 40% Cardiology on board Pt was transferred to the ICU for pressor management and inotropic effect Levophed and dobutamine discontinued Case discussed with nephrology that recommended to continue IV lasix 40mg BID as per [facility] Cardiology d/c lasix and started on Torsemide 20mg Clinically improved Monitor I/O and continue fluid restriction Per cardiology: repeat echocardiogram performed 03/06/2021 demonstrates ejection fraction of 25 to 30% but notable further enlargement of the right ventricle and severe right ventricular dysfunction. There is severe tricuspid insufficiency correlating with patient's hepatic congestion and elevated hepatic enzyme Pulmonary hypertension noted on previous echo as per review of outpatient records. Have reached out to primary supervisor microbiology technologists but contact still pending Suspect a component of chronic right heart failure with mitral and tricuspid insufficiency potentially recently worsened by relapse into atrial fibrillation. Thromboembolic disease not completely excluded Recommendations: Given her severe preload dependence would not diuresis any more aggressively at this time. Her heart rates have increased but her blood pressure at the same time is decreased so we will hold off on further up titration of her beta-blockade (currently metoprolol increased to 50 twice a day, due to tachycardia). Continue warfarin. Okay to DC to home from a cardiac standpoint. Recommend close follow-up with primary supervisor microbiology technologists. Primary supervisor microbiology technologists office contacted, appointment scheduled for March 21 Hypotension BP stable/ low Off Levophed and dobutamine drip Continue monitor BP Staghorn calculus Calculus of proximal left ureter CT abd/pelvis showed 3 cm staghorn left renal calculus. Obstructing 18 x 7 x 7 mm left UPJ calculus Urology on board S/P stent placement Left ureteral stent on 03/05 Will need percutaneous nephrolithotomy in the future at a tertiary center or ureteroscopy there due to her multiple comorbidities as per urology Outpatient urology follow up w/ Dr. Tong set up already Continue to hold abx for now since urine and blood cx no growth Continue monitor Acute on chronic renal insufficiency Baseline creatinine was 1.4 in 2019 Creatinine continue slowly trending down to 1.3 today Nephrology on board Discussed dialysis with patient, but pt declined at first, but now she reconsiders it if needed Avoid nephrotoxic agents Continue monitor BMP Transaminitis Possible related to fluid overload vs medication Liver enzymes trending down with AST from 1055->356--> 254->143-> 77->46, ALT from 678-> 550-->473->351 ->260->166 and ALK from 370 to 248->232->198->185 - >160 Acetaminophen level less than 2 CT abd/pelvis showed unenhanced liver is normal in size, contour, and attenuation. There is no intrahepatic biliary ductal dilatation. MRCP showed o intra- or extrahepatic biliary ductal dilatation, and no choledocholithiasis. Elevated ammonia Level N-Acetylcysteine was given lactulose discontinue Gastro on board Rocephin, statin and amiodarone discontinued Continue to avoid hepatotoxic agents Continue monitor Liver enzymes Atrial fibrillation: S/P watchman procedure rate improved Started on Low dose metoprolol 12.5 mg BID due to low BP If BP stable, will consider to increase metoprolol to 25mg BID Continue aspirin for now Continue monitor closely Amiodarone was discontinued Continue metoprolol Starting on Coumadin 5mg , however INR now elevated, 5.5, will hold warfarin Monitor PT/INR Patient will need INR checked on March 16 or March 17. Recommend to decrease warfarin dose to 3 mg daily at that time, and then adjust accordingly. Hyperkalemia Potassium dropped from 5.8 to 5.2 ->3.6->4.2->3.5 today Continue monitor resolved Hypothyroidism Elevated TSH possible related to acute illness Continue Levothyroxine Will need to repeat TSH in 4 weeks Elevated INR Due to Liver failure received Vit K, INR No sign of active bleeding Continue monitor INR Now started on warfarin History of seizures Continue Keppra. Transitioned to PO keppra History of colon cancer Status post partial removal of colon in 2012. DVT prophylaxis Elevated INR , now SCDs, warfarin started. CODE STATUS FULL CODE Disposition - plan to discharge to rehab/SNF, case management aware Close follow-up with primary supervisor microbiology technologists arranged, for May 7. Admission and Anticipated Discharge Date Admission Date: March 04, 2021 Subjective Pt was seen and examined for follow up of fluid overload, CHF, Afib w/ RVR and other med. problems Sitting in chair in no distress She reports feeling much better, she is not using oxygen anymore but she feels very weak Denies any chest pain, palpitation, dizziness and SOB Discussed possible rehab/SNF, patient is in agreement with that, case management contacted Son Noel cai over the phone and family was able to visit her here Patient gets tachycardic, especially with any movement, discussed with cardiology, metoprolol increased Review of Systems Review of Systems: All systems reviewed & are unremarkable except as noted in HPI & below Constitutional: no fever and no chills Respiratory: + cough (improved) and + dyspnea (improved) Cardiovascular: + edema; no chest pain and no palpitations Gastrointestinal: no abdominal pain, no nausea and no vomiting Physical Exam Physical Exam: General- No acute distress Head- atraumatic Eyes- PERRL, EOMI, ENT- oropharynx clear Neck- supple, no JVD Lungs- clear to auscultation w/ mild bibasilar crackles Heart- irregular rhythm; tachycardic Abdomen- normal bowel sounds, soft, nontender Extremities- no calf tenderness, +edema B/L, moves extremities Neuro- alert, oriented x 3; PERRL, EOMI; no facial palsy; no dysarthria Skin- warm & dry Results & Data Results & Data ([facility]) Vital Signs (Past 12 Hours) Vital Signs Temp Pulse Pulse Pulse Resp BP BP 03/14/21 06:25 96 H 120/81 03/14/21 04:00 36.5 C 99 H 18 100/65 03/13/21 23:38 116 H 03/13/21 23:00 36.6 C 116 H 18 122/77 03/13/21 21:24 36.8 C 108 H 18 137/83 Pulse Ox 03/14/21 06:25 03/14/21 04:00 97 03/13/21 23:38 03/13/21 23:00 95 03/13/21 21:24 91 Laboratory Results 03/14/21 03/14/21 03/13/21 Range/Units 06:41 06:41 07:19 WBC (4.8-10.8) K/uL RBC (4.2-5.4) M/uL Hgb (12.0-16.0) g/dL Hct (37-47) % MCV (80-100) fL MCH (25-34) pg MCHC (32-36) g/dL RDW Std Deviation (36.4-46.3) fL RDW Coeff of Lawrence (11.5-14.5) % Plt Count (130-400) K/uL MPV (7.4-10.4) fL PT 48.9 H (9.0-12.0) Seconds INR 5.5 H (0.9-1.1) Sodium 141 140 (136-145) mmol/L Potassium 4.5 4.3 (3.5-5.1) mmol/L Chloride 105 102 (98-107) mmol/L Carbon Dioxide 34 H 36 H (21-32) mmol/L Anion Gap 2.0 L 2.0 L (3-11) BUN 34 H 40 H (7-18) mg/dl Creatinine 1.30 H 1.26 H (0.6-1.2) mg/dl Est Cr Clr Drug Dosing 28.5 30.1 ml/min Est GFR ( Amer) 44.2 45.9 Est GFR (Non-Af Amer) 38.2 39.6 BUN/Creatinine Ratio 26.3 H 31.7 H (10-20) Glucose 91 85 (70-99) mg/dl Calcium 8.0 L 8.3 L (8.5-10.1) mg/dl Phosphorus 3.1 (2.5-4.9) mg/dl Magnesium 1.8 (1.8-2.4) mg/dl 03/13/21 03/13/21 Range/Units 07:19 07:19 WBC 11.14 H (4.8-10.8) K/uL RBC 3.66 L (4.2-5.4) M/uL Hgb 10.7 L (12.0-16.0) g/dL Hct 33.5 L (37-47) % MCV 91.5 (80-100) fL MCH 29.2 (25-34) pg MCHC 31.9 L (32-36) g/dL RDW Std Deviation 57.6 H (36.4-46.3) fL RDW Coeff of Lawrence 17.4 H (11.5-14.5) % Plt Count 179 (130-400) K/uL MPV 10.3 (7.4-10.4) fL PT 22.4 H (9.0-12.0) Seconds INR 2.4 H (0.9-1.1) Sodium (136-145) mmol/L Potassium (3.5-5.1) mmol/L Chloride (98-107) mmol/L Carbon Dioxide (21-32) mmol/L Anion Gap (3-11) BUN (7-18) mg/dl Creatinine (0.6-1.2) mg/dl Est Cr Clr Drug Dosing ml/min Est GFR ( Amer) Est GFR (Non-Af Amer) BUN/Creatinine Ratio (10-20) Glucose (70-99) mg/dl Calcium (8.5-10.1) mg/dl Phosphorus (2.5-4.9) mg/dl Magnesium (1.8-2.4) mg/dl Medications Administered Current Inpatient Medications Acetaminophen (Acetaminophen 325 Mg Tab) 650 mg PO Q4H PRN PRN Reason: Pain or Fever Stop: 04/03/21 06:28 Aspirin (A[facility]in 81 Mg [facility]ctab) [facility] Stop: 04/03/21 08:59 Last Admin: 03/13/21 09:40 Dose: 81 mg Documented by: Famotidine (Famotidine 20 Mg Tab) 20 mg PO QAM [facility] Stop: 04/08/21 08:59 Last Admin: 03/13/21 09:07 Dose: 20 mg Documented by: Levetiracetam (Levetiracetam 500 Mg Tab) 500 mg PO BID [facility] Stop: 04/10/21 20:59 Last Admin: 03/13/21 22:15 Dose: 500 mg Documented by: Levothyroxine Sodium (Levothyroxine Sodium 75 Mcg Tablet) 75 mcg PO DAILYBB [facility] Stop: 04/03/21 06:44 Last Admin: 03/14/21 06:26 Dose: 75 mcg Documented by: Metoprolol Succinate (Metoprolol Succ 25mg Ext Rel Tab) 12.5 mg PO Q6H [facility] Stop: 04/12/21 17:59 Last Admin: 03/14/21 06:26 Dose: 12.5 mg Documented by: Multivitamins (Multivitamin Tab) 1 tab PO DAILY [facility] Stop: 04/03/21 08:59 Last Admin: 03/13/21 09:07 Dose: 1 tab Documented by: Nitroglycerin (Nitroglycerin Sl 0.4 Mg/Tab Tab) 0.4 mg SL UD PRN PRN Reason: Chest Pain Stop: 04/03/21 06:28 Ondansetron HCl (Ondansetron Inj 2 Mg/Ml 2 Ml Vial) 4 mg IV Q6H PRN PRN Reason: Nausea Stop: 04/03/21 06:28 Polyethylene Glycol (Polyethylene (Miralax) 17 Gm Pack) 17 gm PO DAILY PRN PRN Reason: Constipation Stop: 04/03/21 06:28 Last Admin: 03/10/21 22:58 Dose: 17 gm Documented by: Potassium Chloride (Potassium Chloride Crtab 20 Meq Tabcr) 20 meq PO QAM [facility] Stop: 04/11/21 08:59 Last Admin: 03/13/21 09:08 Dose: 20 meq Documented by: Torsemide (Torsemide 10 Mg Tab) 20 mg PO QAM [facility] Stop: 04/11/21 08:59 Last Admin: 03/13/21 09:07 Dose: 20 mg Documented by: Vitamin D (Cholecalciferol 1,000 Units 25 Mcg Tab) 1,000 units PO DAILY [facility] Stop: 04/03/21 08:59 Last Admin: 03/13/21 09:07 Dose: 1,000 units Documented by: Warfarin Sodium (Warfarin Sod 5 Mg Tab) 5 mg PO DAILY@1600 [facility] Stop: 04/11/21 15:59 Last Admin: 03/13/21 16:26 Dose: 5 mg Documented by:
[2021-03-14] MEDS: MAGNESIUM OXIDE 400 MG TAB PO SCH (08:48)
[2021-03-14] MEDS: FAMOTIDINE 20 MG TAB PO SCH (08:49)
[2021-03-14] MEDS: TORSEMIDE 10 MG TAB PO SCH (08:49)
[2021-03-14] MEDS: CHOLECALCIFEROL 1,000 UNITS 25 MCG TAB PO SCH (08:49)
[2021-03-14] MEDS: MULTIVITAMIN TAB PO SCH (08:49)
[2021-03-14] MEDS: levETIRAcetam 500 MG TAB PO SCH ×2 (08:49→19:39)
[2021-03-14] MEDS: ASPIRIN 81 MG ECTAB PO SCH (08:49)
[2021-03-14] MEDS: POTASSIUM CHLORIDE CRTAB 20 MEQ TABCR PO SCH (08:49)
--- NOTE | 2021-03-14 15:31 | Cardiology Progress Note ---
Date of Service March 14, 2021 Assessment & Plan (1) Acute on chronic systolic heart failure: Patient is a complex 80-year-old female as outlined previously followed at [facility]/ [place] cardiology with underlying issues including longstanding cardiomyopathy, paroxysmal question persistent atrial fibrillation with recent hospitalization with atrial fibrillation with rapid response. She remains in atrial fibrillation per review of records appears to be plans for long-term rate control. Underwent watchman procedure to mitigate use of anticoagulants in the past. Current complaining of edema with only mild volume overload on exam no signs of hypoxia or pulmonary edema. Heart rate relatively well controlled. Current course complicated by acute on chronic renal failure possibly secondary to obstructive uropathy Repeat echocardiogram performed 03/06/2021 demonstrates ejection fraction of 25 to 30% but notable further enlargement of the right ventricle and severe right ventricular dysfunction. There is severe tricuspid insufficiency correlating with patient's hepatic congestion and elevated hepatic enzyme Pulmonary hypertension noted on previous echo as per review of outpatient records. Have reached out to primary lead teacher but contact still pending Suspect a component of chronic right heart failure with mitral intracuspid insufficiency potentially recently worsened by relapse into atrial fibrillation. Thromboembolic disease not completely excluded Recommendations: Continue daily p.o. torsemide. Given her severe preload dependence would not diuresis any more aggressively at this time. Her heart rates have increased but her blood pressure at the same time is decreased so we will hold off on further up titration of her beta-blockade. Continue warfarin. Okay to DC to home from a cardiac standpoint. Recommend close follow-up with primary lead teacher. (2) Atrial fibrillation: Rates now well controlled. Given the clinical context I do not believe we will be able to achieve sinus rhythm at this point. We will initiate warfarin at this time. (3) Acute on chronic renal insufficiency: (4) Staghorn calculus: Admission and Anticipated Discharge Date Admission Date: March 04, 2021 Subjective Patient seen and examined, chart reviewed. OOB in chair eating lunch. States his breathing is improving today. Telemetry reviewed: Atrial fibrillation with variable ventricular response. Review of Systems Review of Systems: All systems reviewed & are unremarkable except as noted in HPI & below Physical Exam Physical Exam: General: Awake, alert and oriented x 3. No acute distress. HEENT: Normocephalic, atraumatic. Pupils equal, round and reactive to light and accommodation. Extraocular muscles are intact. Anicteric sclera. Moist mucous membranes. Neck: No JVD. No bruit. Cardiovascular: irregularly irregular, unable to appreciate murmur, rub or gallop. Pulmonary: Clear to auscultation bilaterally. No rales, rhonchi, or wheezing. Abdomen: Bowel sounds x 4, soft. No rebound, guarding or tenderness. No organomegaly. Extremities: No clubbing, cyanosis or edema. +2 pedal pulses bilaterally. Skin: Warm and dry. Results & Data ([facility]) Vital Signs (Past 12 Hours) Vital Signs Temp Pulse Pulse Resp BP BP Pulse Ox 03/14/21 12:04 109 H 118/84 03/14/21 11:09 36.4 C L 117 H 20 98/61 L 92 03/14/21 08:22 36.4 C L 71 20 114/75 97 03/14/21 07:30 103 H 03/14/21 06:25 96 H 120/81 03/14/21 04:00 36.5 C 99 H 18 100/65 97
[2021-03-14] MEDS ORDERED: METOPROLOL TARTRATE 25 MG TAB PO STA (17:10)
[2021-03-15] MEDS: LEVOTHYROXINE SODIUM 75 MCG TABLET PO SCH (05:53)
[2021-03-15 06:16] LABS: Calcium 8.1 mg/dl (8.5-10.1); Creatinine Clr Calc Pharmacy 28.2 ml/min; Est GFR (African American) 44.2; Est GFR (Non-African American) 38.2; Magnesium 1.8 mg/dl (1.8-2.4); Potassium 4.3 mmol/L (3.5-5.1)
[2021-03-15] MEDS: POTASSIUM CHLORIDE CRTAB 20 MEQ TABCR PO SCH (07:56)
[2021-03-15] MEDS: FAMOTIDINE 20 MG TAB PO SCH (07:56)
[2021-03-15] MEDS: MAGNESIUM OXIDE 400 MG TAB PO SCH (07:56)
[2021-03-15] MEDS: ASPIRIN 81 MG ECTAB PO SCH (07:57)
[2021-03-15] MEDS: levETIRAcetam 500 MG TAB PO SCH (07:57)
[2021-03-15] MEDS: TORSEMIDE 10 MG TAB PO SCH (07:58)
[2021-03-15] MEDS: MULTIVITAMIN TAB PO SCH (07:58)
[2021-03-15] MEDS: CHOLECALCIFEROL 1,000 UNITS 25 MCG TAB PO SCH (07:58)
[2021-03-15] MEDS ORDERED: METOPROLOL SUCC 50MG EXT REL TAB PO SCH (09:00)
--- NOTE | 2021-03-15 11:06 | Hospitalist Progress Note ---
Date of Service March 15, 2021 Assessment & Plan (1) Acute on chronic systolic heart failure: Right heart failure Present on admission with b/l LE edema was recently admitted at [facility]/ [place] cardiology with underlying issues including longstanding cardiomyopathy, afib CXR showed cardiomegaly and radiographic evidence of mild distal failure/fluid overload. Small right pleural effusion. ECHO in this admission showed left ventricle is normal in size. Moderate concentric left ventricular hypertrophy. Septal motion is consistent with conduction abnormality. Moderate global hypokinesis of the left ventricle. Ejection fraction 35 to 40% Cardiology on board Pt was transferred to the ICU for pressor management and inotropic effect Levophed and dobutamine discontinued Case discussed with nephrology that recommended to continue IV lasix 40mg BID as per [facility] Cardiology d/c lasix and started on Torsemide 20mg Clinically improved Monitor I/O and continue fluid restriction Per cardiology: repeat echocardiogram performed 03/06/2021 demonstrates ejection fraction of 25 to 30% but notable further enlargement of the right ventricle and severe right ventricular dysfunction. There is severe tricuspid insufficiency c orrelating with patient's hepatic congestion and elevated hepatic enzyme Pulmonary hypertension noted on previous echo as per review of outpatient records. Have reached out to primary industrial economics professor but contact still pending Suspect a component of chronic right heart failure with mitral and tricuspid insufficiency potentially recently worsened by relapse into atrial fibrillation. Thromboembolic disease not completely excluded Recommendations: Given her severe preload dependence would not diuresis any more aggressively at this time. Her heart rates have increased but her blood pressure at the same time is decreased so we will hold off on further up titration of her beta-blockade (currently metoprolol increased to 50 twice a day, due to tachycardia). Continue warfarin. Okay to DC to home from a cardiac standpoint. Recommend close follow-up with primary industrial economics professor. Primary industrial economics professor office contacted, appointment scheduled for March 21 Hypotension BP stable/ low Off Levophed and dobutamine drip Continue monitor BP Staghorn calculus Calculus of proximal left ureter CT abd/pelvis showed 3 cm staghorn left renal calculus. Obstructing 18 x 7 x 7 mm left UPJ calculus Urology on board S/P stent placement Left ureteral stent on 03/05 Will need percutaneous nephrolithotomy in the future at a tertiary center or ureteroscopy there due to her multiple comorbidities as per urology Outpatient urology follow up w/ Dr. Fortune set up already Continue to hold abx for now since urine and blood cx no growth Continue monitor Acute on chronic renal insufficiency Baseline creatinine was 1.4 in 2019 Creatinine continue slowly trending down to 1.3 Nephrology on board Discussed dialysis with patient, but pt declined at first, but now she reconsiders it if needed Avoid nephrotoxic agents Continue monitor BMP Transaminitis Possible related to fluid overload vs medication Liver enzymes trending down with AST from 1055->356--> 254->143-> 77->46, ALT from 678-> 550-->473->351 ->260->166 and ALK from 370 to 248->232->198->185 - >160 Acetaminophen level less than 2 CT abd/pelvis showed unenhanced liver is normal in size, contour, and attenuation. There is no intrahepatic biliary ductal dilatation. MRCP showed o intra- or extrahepatic biliary ductal dilatation, and no choledocholithiasis. Elevated ammonia Level N-Acetylcysteine was given lactulose discontinue Gastro on board Rocephin, statin and amiodarone discontinued Continue to avoid hepatotoxic agents Continue monitor Liver enzymes Atrial fibrillation: S/P watchman procedure rate improved Started on Low dose metoprolol 12.5 mg BID due to low BP If BP stable, will consider to increase metoprolol to 25mg BID Continue aspirin for now Continue monitor closely Amiodarone was discontinued Continue metoprolol Starting on Coumadin 5mg , however INR now elevated, 5.5, will hold warfarin Monitor PT/INR Patient will need INR checked on March 16 or March 17. Recommend to decrease warfarin dose to 3 mg daily at that time, and then adjust accordingly. Hyperkalemia Potassium dropped from 5.8 to 5.2 ->3.6->4.2->3.5 today Continue monitor resolved Hypothyroidism Elevated TSH possible related to acute illness Continue Levothyroxine Will need to repeat TSH in 4 weeks Elevated INR Due to Liver failure received Vit K, INR No sign of active bleeding Continue monitor INR Now started on warfarin History of seizures Continue Keppra. Transitioned to PO keppra History of colon cancer Status post partial removal of colon in 2012. DVT prophylaxis Elevated INR , now SCDs, warfarin started. CODE STATUS FULL CODE Disposition - plan to discharge to rehab/SNF, case management aware Close follow-up with primary industrial economics professor arranged, for March 21. Admission and Anticipated Discharge Date Admission Date: March 04, 2021 Subjective Pt was seen and examined for follow up of fluid overload, CHF, Afib w/ RVR and other med. problems Sitting in chair in no distress She reports feeling much better, but she feels weak Denies any chest pain, palpitation, dizziness and SOB Plan to DC to SNF and close follow up w/ primary industrial economics professor Review of Systems Review of Systems: All systems reviewed & are unremarkable except as noted in HPI & below Constitutional: no fever and no chills Respiratory: no dyspnea Cardiovascular: no chest pain and no palpitations Gastrointestinal: no abdominal pain, no nausea and no vomiting Physical Exam Physical Exam: General- No acute distress Head- atraumatic Eyes- PERRL, EOMI, ENT- oropharynx clear Neck- supple, no JVD Lungs- + bibasilar crackles, no wheezing Heart- irregular rhythm; HR 80s Abdomen- normal bowel sounds, soft, nontender Extremities- no calf tenderness, +1 edema B/L (improved), moves extremities Neuro- alert, oriented x 3; PERRL, EOMI; no facial palsy; no dysarthria Skin- warm & dry Results & Data Results & Data ([facility]) Vital Signs (Past 12 Hours) Vital Signs Temp Pulse Pulse Resp BP Pulse Ox 03/15/21 03:49 36.1 C L 89 16 109/68 97 03/14/21 23:56 96 H Laboratory Results 03/15/21 03/14/21 03/14/21 Range/Units 05:44 11:58 11:58 Sodium 141 (136-145) mmol/L Potassium 4.3 (3.5-5.1) mmol/L Chloride 106 (98-107) mmol/L Carbon Dioxide 35 H (21-32) mmol/L Anion Gap 0 L (3-11) BUN 34 H (7-18) mg/dl Creatinine 1.30 H (0.6-1.2) mg/dl Est Cr Clr Drug Dosing 28.2 ml/min Est GFR ( Amer) 44.2 Est GFR (Non-Af Amer) 38.2 BUN/Creatinine Ratio 26.0 H (10-20) Glucose 93 (70-99) mg/dl Calcium 8.1 L (8.5-10.1) mg/dl Magnesium 1.8 (1.8-2.4) mg/dl COVID-19 Eval Order Covid19 IDNow [facility] SARS-CoV-2, RNA, NAAT NEGATIVE (NEGATIVE) Medications Administered Current Inpatient Medications Acetaminophen (Acetaminophen 325 Mg Tab) 650 mg PO Q4H PRN PRN Reason: Pain or Fever Stop: 04/03/21 06:28 Aspirin (Aspirin 81 Mg Ectab) 81 mg PO QAM [facility] Stop: 04/03/21 08:59 Last Admin: 03/15/21 07:57 Dose: 81 mg Documented by: Famotidine (Famotidine 20 Mg Tab) 20 mg PO QAM [facility] Stop: 04/08/21 08:59 Last Admin: 03/15/21 07:56 Dose: 20 mg Documented by: Levetiracetam (Levetiracetam 500 Mg Tab) 500 mg PO BID [facility] Stop: 04/10/21 20:59 Last Admin: 03/15/21 07:57 Dose: 500 mg Documented by: Levothyroxine Sodium (Levothyroxine Sodium 75 Mcg Tablet) 75 mcg PO DAILYBB [facility] Stop: 04/03/21 06:44 Last Admin: 03/15/21 05:53 Dose: 75 mcg Documented by: Magnesium Oxide (Magnesium Oxide 400 Mg Tab) 400 mg PO QAM [facility] Stop: 04/13/21 08:59 Last Admin: 03/15/21 07:56 Dose: 400 mg Documented by: Metoprolol Succinate (Metoprolol Succ 50mg Ext Rel Tab) 50 mg PO BID [facility] Stop: 04/14/21 08:59 Last Admin: 03/15/21 07:57 Dose: 50 mg Documented by: Multivitamins (Multivitamin Tab) 1 tab PO DAILY [facility] Stop: 04/03/21 08:59 Last Admin: 03/15/21 07:58 Dose: 1 tab Documented by: Nitroglycerin (Nitroglycerin Sl 0.4 Mg/Tab Tab) 0.4 mg SL UD PRN PRN Reason: Chest Pain Stop: 04/03/21 06:28 Ondansetron HCl (Ondansetron Inj 2 Mg/Ml 2 Ml Vial) 4 mg IV Q6H PRN PRN Reason: Nausea Stop: 04/03/21 06:28 Polyethylene Glycol (Polyethylene (Miralax) 17 Gm Pack) 17 gm PO DAILY PRN PRN Reason: Constipation Stop: 04/03/21 06:28 Last Admin: 03/10/21 22:58 Dose: 17 gm Documented by: Potassium Chloride (Potassium Chloride Crtab 20 Meq Tabcr) 20 meq PO QAM [facility] Stop: 04/11/21 08:59 Last Admin: 03/15/21 07:56 Dose: 20 meq Documented by: Torsemide (Torsemide 10 Mg Tab) 20 mg PO QAM [facility] Stop: 04/11/21 08:59 Last Admin: 03/15/21 07:58 Dose: 20 mg Documented by: Vitamin D (Cholecalciferol 1,000 Units 25 Mcg Tab) 1,000 units PO DAILY [facility] Stop: 04/03/21 08:59 Last Admin: 03/15/21 07:58 Dose: 1,000 units Documented by: Warfarin Sodium (Warfarin Sod 5 Mg Tab) 5 mg PO DAILY@1600 [facility] Stop: 04/11/21 15:59 Last Admin: 03/13/21 16:26 Dose: 5 mg Documented by:
--- NOTE | 2021-03-15 11:20 | Discharge Summary ---
Date of Service March 15, 2021 Admission HPI Per Admitting Provider This is an 80-year-old female with past medical history significant for hyperlipidemia, hypothyroidism, chronic kidney disease stage III, atrial fibrillation, history of heart failure with preserved ejection fraction, ectopic atrial tachycardia, hypertension, vitamin D deficiency, cholelithiasis, senile osteoporosis, history of seizures, history of colon cancer. The patient lives with her and son. The patient was recently in the [facility] for 5 days and was treated for UTI and got discharged about a week ago. After discharge, she also followed up with nephrology. Her baseline creatinine was 1.3-1.4, creatinine peaked in [facility] to 3.12 as per nephrology notes and also slightly improved to 2.9 and she was also volume overloaded when seen by nephrology and thought to be secondary t sodium bicarbonate tablets and lack of diuretics and sodium bicarbonate was discontinued and started on Lasix. The patient says she is making urine fine, but since last one week legs are swollen. She was given fluids in the [facility] and because of swollen legs she is not able to ambulate much and feeling weak and tired. She has cane and walker at home. She was also found to have kidney stones. Denies any abdominal pain, no diarrhea, no constipation, no blood in the stools or black stools. Normal bladder movements. No burning micturition. No fever, no chills, no chest pain, no shortness of breath. Once in a while, she gets cough. No nausea. Appetite is okay. No headache, no blurred visions, no earache, no runny nose, no sore throat, no loss of sense of smell or taste. Currently, resting comfortable and hemodynamically stable. Admission Exam Per Admitting Provider GENERAL: The patient is of moderate build, not in acute distress. VITAL SIGNS: Temperature 36.5, pulse 88, respiratory rate 18, blood pressure 106/84, oxygen 98% on room air. HEENT: Pupils equal, round, and reactive to light. Oral mucosa moist. NECK: No JVD, no neck masses. CARDIOVASCULAR: S1, S2 heard. Regular rate and rhythm, no murmur, no gallop. RESPIRATORY SYSTEM: Normal AP diameter. No accessory muscle use. No wheezing, no crackles. ABDOMEN: Soft, bowel sounds present, nontender. No distention. CENTRAL NERVOUS SYSTEM: Cranial nerves II-XII grossly intact, nonfocal. EXTREMITIES: Bilateral lower extremity gross edema present, no erythema seen. Principal Diagnosis Acute on chronic systolic heart failure: Right heart failure Acute on chronic renal insufficiency Staghorn calculus Transaminitis Atrial fibrillation: Discharge Exam General- No acute distress Head- atraumatic Eyes- PERRL, EOMI, ENT- oropharynx clear Neck- supple, no JVD Lungs- + bibasilar crackles, no wheezing Heart- irregular rhythm; HR 80s Abdomen- normal bowel sounds, soft, nontender Extremities- no calf tenderness, +1 edema B/L (improved), moves extremities Neuro- alert, oriented x 3; PERRL, EOMI; no facial palsy; no dysarthria Skin- warm & dry Discharge Data Allergies Allergy/AdvReac Type Severity Reaction Status Date / Time strawberry Allergy Unknown hives Unverified 03/04/21 00:06 Consultations 03/04/21 02:28 ED Decision to Admit Stat 03/04/21 07:19 Consult Urology Routine 03/04/21 08:00 Consult Nephrology Routine 03/04/21 10:35 Consult Cardiology Routine 03/06/21 10:17 Consult Gastroenterology Routine 03/06/21 18:43 Consult Aircraft Rigging And Controls Mechanic Routine 03/06/21 21:34 Consult Palliative Care Routine Procedures Performed Operation Date: 03/05/21 11:20 Actual Procedures p Cystoscopy Left Ureteral Stent Insertion(Left) - Juan Jose Fortune MD Ordered Studies 03/03/21 23:47 CT head/brain wo con Urgent IMPRESSION: 1. No acute intracranial findings 2. Inflammatory changes within the right maxillary sinus. 03/03/21 23:49 US venous doppler LE BI Urgent IMPRESSION: There is no sonographic evidence of deep venous thrombosis identified in the right or left lower extremity. 03/04/21 04:44 CT abd pelvis wo con Urgent IMPRESSION: 1. Postsurgical changes of a right hemicolectomy 2. Colonic diverticulosis. No evidence of acute diverticulitis 3. 3 cm staghorn left renal calculus. 4. Obstructing 18 x 7 x 7 mm left UPJ calculus 5. Cholelithiasis 6. Low volume ascites 03/05/21 FL retrograde includes kub Routine 03/06/21 11:01 MR MRCP Routine IMPRESSION: 1. Significantly motion degraded examination. 2. Cholelithiasis without clear MRI evidence of acute cholecystitis. 3. There is no intra- or extrahepatic biliary ductal dilatation, and no choledocholithiasis. 4. Cardiomegaly and pleural effusions. 5. Small volume abdominal ascites. 6. A left ureteral stent is in place. Large calculi are suggested in the left renal pelvis and the left proximal ureter. 03/06/21 21:41 US point of care ultrasound Routine Hospital Course (1) Acute on chronic systolic heart failure: Right heart failure Present on admission with b/l LE edema was recently admitted at [facility]/ [place] cardiology with underlying issues including longstanding cardiomyopathy, afib CXR showed cardiomegaly and radiographic evidence of mild distal failure/fluid overload. Small right pleural effusion. ECHO in this admission showed left ventricle is normal in size. Moderate concentric left ventricular hypertrophy. Septal motion is consistent with conduction abnormality. Moderate global hypokinesis of the left ventricle. Ejection fraction 35 to 40% Cardiology on board Pt was transferred to the ICU for pressor management and inotropic effect Levophed and dobutamine discontinued Case discussed with nephrology that recommended to continue IV lasix 40mg BID as per [facility] Cardiology d/c lasix and started on Torsemide 20mg Clinically improved Monitor I/O and continue fluid restriction Per cardiology: repeat echocardiogram performed 03/06/2021 demonstrates ejection fraction of 25 to 30% but notable further enlargement of the right ventricle and severe right ventricular dysfunction. There is severe tricuspid insufficiency correlating with patient's hepatic congestion and elevated hepatic enzyme Pulmonary hypertension noted on previous echo as per review of outpatient records. Have reached out to primary hospitalist program director but contact still pending Suspect a component of chronic right heart failure with mitral and tricuspid insufficiency potentially recently worsened by relapse into atrial fibrillation. Thromboembolic disease not completely excluded Recommendations: Given her severe preload dependence would not diuresis any more aggressively at this time. Her heart rates have increased but her blood pressure at the same time is decreased so we will hold off on further up titration of her beta-blockade (currently metoprolol increased to 50 twice a day, due to tachycardia). Continue warfarin. Okay to DC to home from a cardiac standpoint. Recommend close follow-up with primary hospitalist program director. Primary hospitalist program director office contacted, appointment scheduled for March 21 Hypotension BP stable/ low Off Levophed and dobutamine drip Continue monitor BP Staghorn calculus Calculus of proximal left ureter CT abd/pelvis showed 3 cm staghorn left renal calculus. Obstructing 18 x 7 x 7 mm left UPJ calculus Urology on board S/P stent placement Left ureteral stent on 03/05 Will need percutaneous nephrolithotomy in the future at a tertiary center or ureteroscopy there due to her multiple comorbidities as per urology Outpatient urology follow up w/ Dr. Fortune set up already Continue to hold abx for now since urine and blood cx no growth Continue monitor Acute on chronic renal insufficiency Baseline creatinine was 1.4 in 2019 Creatinine continue slowly trending down to 1.3 Nephrology on board Discussed dialysis with patient, but pt declined at first, but now she reconsiders it if needed Avoid nephrotoxic agents Continue monitor BMP Transaminitis Possible related to fluid overload vs medication Liver enzymes trending down with AST from 1055->356--> 254->143-> 77->46, ALT from 678-> 550-->473->351 ->260->166 and ALK from 370 to 248->232->198->185 - >160 Acetaminophen level less than 2 CT abd/pelvis showed unenhanced liver is normal in size, contour, and attenuation. There is no intrahepatic biliary ductal dilatation. MRCP showed o intra- or extrahepatic biliary ductal dilatation, and no choledocholithiasis. Elevated ammonia Level N-Acetylcysteine was given lactulose discontinue Gastro on board Rocephin, statin and amiodarone discontinued Continue to avoid hepatotoxic agents Continue monitor Liver enzymes Atrial fibrillation: S/P watchman procedure rate improved Started on Low dose metoprolol 12.5 mg BID due to low BP If BP stable, will consider to increase metoprolol to 25mg BID Continue aspirin for now Continue monitor closely Amiodarone was discontinued Continue metoprolol Starting on Coumadin 5mg , however INR now elevated, 5.5, will hold warfarin Monitor PT/INR Patient will need INR checked on March 16 or March 17. Recommend to decrease warfarin dose to 3 mg daily at that time, and then adjust accordingly. Hyperkalemia Potassium dropped from 5.8 to 5.2 ->3.6->4.2->3.5 today Continue monitor resolved Hypothyroidism Elevated TSH possible related to acute illness Continue Levothyroxine Will need to repeat TSH in 4 weeks Elevated INR Due to Liver failure received Vit K, INR No sign of active bleeding Continue monitor INR Now started on warfarin History of seizures Continue Keppra. Transitioned to PO keppra History of colon cancer Status post partial removal of colon in 2012. DVT prophylaxis Elevated INR , now SCDs, warfarin started. CODE STATUS FULL CODE Disposition - plan to discharge to rehab/SNF, case management aware Close follow-up with primary hospitalist program director arranged, for March 21. Total Time Total Time Spent Total Time Spent (In Minutes): 45 Total Time Includes: Examination of the Patient, Discharge Planning, Medication Reconciliation and Communication With Other Providers Discharge Plan Discharge Items Patient Disposition: Transfer Correction Fac Reason For Visit: WEAKNESS Discharge Diagnosis: Acute on chronic systolic heart failure: Right heart failure Acute on chronic renal insufficiency Staghorn calculus Transaminitis Atrial fibrillation: Activity: Per Instructions section Non-emergency contact: Primary Care Provider and Retail Clerk Call non-emergency contact if: you have any medication questions and your symptoms worsen Follow-up/Referrals: Nish Mazariegos MD [Primary Care Provider] - (Date & Time 03/19/2021 3:00 PM Provider Nish Mazariegos MD Department Family Medicine [facility] ) Jacqui Vargas PA-C [Physician Tongue Stitcher] - (Date & Time 03/14/2021 12:30 PM Provider Jacqui Vargas PA-C Department Nephrology [facility] ) Bacilio Amato MD [Outside Practitioners] - 03/21/21 2:40 pm Diet: Heart Healthy and Low Sodium (2gm) Fluids: 1500ml (6 cups) Diet Texture: Easy to Chew Addtl Attending Provider Instructions: Follow-up with your primary care provider, the appointment is scheduled for you for March 19. Make sure to follow-up with your primary hospitalist program director, the appointment was scheduled for you for March 21. Your were started on a new medication, torsemide, to help with your fluid. You were also started on medication, warfarin, which is a blood thinner. You will need to have your blood work - INR checked, to monitor this medication closely. Recommend to have INR checked tomorrow or on Wednesday, March 17. Your warfarin dose will be then adjusted accordingly. Take metoprolol 50 mg twice a day for your heart rate. Amiodarone was stopped. Discuss this with your primary hospitalist program director. You should weigh yourself daily, and monitor your weight. Make sure you record your numbers and have them available for your healthcare providers/hospitalist program director to review. You will also need to follow-up with urology, you will be contacted about the appointment. Addtl Instructor Flying Provider Instructions: Call your Primary Care doctor if any of the following symptoms or problems start or get worse: * Shortness of breath or difficulty breathing * Wake up at night short of breath * Chest pain * Cough * Swelling of your hands, feet, or legs * More fatigued or tired with your normal activity * Palpitations - sudden fast heart beats WEIGHT * Weigh yourself every morning after using the bathroom. * Use the same scale. * Wear the same amount of clothing. * Write your weight down on a chart. * Call your Primary Care doctor if you gain more than 2-3 pounds in 1-2 days. MEDICATIONS * Use this discharge instruction sheet for medication instructions. * Take your medications at the time your doctor ordered. * Do not skip a dose of your medicines. * If you miss a dose of medicine, take it as soon as possible, but DO NOT DOUBLE A DOSE. * Read your medicine information when you get home. * Know all of the side effects of your medicine. If in doubt, ask your pharmacist * Call your Primary Care doctor's office if you have any side effects. * Be sure all of your doctors know what medicine and herbs you take (including cold, flu, and herbal medicine). Take the following with you to your follow-up doctor appointments: * Weight Chart * Medication List * List of questions Do not drink excessive alcohol, beer or wine. Pending Studies at Discharge: No Stand-Alone Forms: My [facility] Skilled Items Patient informed of condition?: Yes DNR: No Discharge Level of Care: Skilled Communicable Disease: No Discharge Prognosis: Other Lines: None Urinary Catheter: Yes Medications and DC Order Prescriptions: New warfarin 3 mg Tablet 3 mg PO DAILY@1600 Qty: 10 RF: 0 torsemide 10 mg Tablet 20 mg PO QAM Qty: 30 RF: 0 potassium chloride [Klor-Con M20] 20 mEq Tablet,Er Particles/Crystals 20 meq PO QAM Qty: 14 RF: 0 famotidine 20 mg Tablet 20 mg PO QAM Qty: 30 RF: 0 magnesium oxide 400 mg (241.3 mg magnesium) Tablet 400 mg PO QAM Qty: 10 RF: 0 polyethylene glycol 3350 [Miralax] 17 gram Powder In Packet 17 g PO DAILY PRN (Reason: constipation) Qty: 14 RF: 0 Continued metoprolol succinate 50 mg tablet extended release 24 hr 50 mg PO BID RF: 0 levetiracetam 500 mg tablet 500 mg PO BID RF: 0 simvastatin 10 mg tablet 10 mg PO DAILY RF: 0 levothyroxine 75 mcg tablet 75 mcg PO QAM RF: 0 multivitamin Tablet 1 tab PO DAILY RF: 0 cholecalciferol (vitamin D3) [Vitamin D3] 25 mcg (1,000 unit) Tablet 25 mcg PO DAILY RF: 0 aspirin [Aspirin Low Dose] 81 mg Tablet,Delayed Release (Dr/Ec) 81 mg PO QAM RF: 0 Discontinued furosemide 40 mg tablet 40 mg PO UD RF: 0 amiodarone 200 mg tablet 200 mg PO BID RF: 0 Discharge Orders: Discharge Order (Routine); Ordered 03/15/21 Ordered By: Yair Piedra Admission Data Admit Date/Time: 03/04/21 04:44 Attending Provider: Yair Piedra Admit Provider: Rajan Perdomo Primary Care Provider: Nish Mazariegos Other Providers: Joleen Mccray ; Rosemary Argueta I. ; Jordan Devries ; Rajan Perdomo ; Juan Jose Fortune ; Oral Conti ; Perez Rasheed ; Petra Murillo ; Mukund Joe ; Liliana Burris ; Zuly Berumen ; Harika Manzo ; Jamaal Sunshine ; Deandra Sarabia ; Cayla Manzo ; Tracey Guo ; Derek Brasher ; Addi Traylor ; Mohit Landry ; Elizabeth Fox ; [facility]
[2021-03-15] MEDS ORDERED: WARFARIN SOD 3 MG TAB PO SCH (16:00)
== END 2021-03-15 15:33 | DRG 682 ==
LOC: ED 23:11 → SUATTDRO 03-04 04:44 → 2S 03-04 04:44 → 1E 03-06 18:07 → 2S 03-09 18:50 → 2W 03-13 21:19